=== PATIENT | male | born 1970 ===

== ENCOUNTER 2020-03-31 06:16 | Outpatient (REF) | payer OTHER, SELFPAY ==
[2020-03-31 08:46] LABS: Alanine Aminotransferase 36 U/L (0-40); Albumin Level 4.5 g/dL (3.5-5.0); Alkaline Phosphatase 107 U/L (39-117); Anion Gap 14 (12-20); Aspartate Amino Transferase 31 U/L (5-37); Bilirubin Total 0.6 mg/dL (0.0-1.0); Blood Urea Nitrogen 14 mg/dL (9-16); Calcium 9.4 mg/dL (8.4-10.2); Carbon Dioxide 29 mmol/L (22-29); Chloride 104 mmol/L (96-108); Cholesterol 173 mg/dL; Estimated Glomerular Filt Rate > 60; Glucose Fasting 125 mg/dL (60-99); HDL Cholesterol 26 mg/dL; LDL Cholesterol Calculated 112 mg/dl; Potassium 4.6 mmol/l (3.3-5.1); Sodium 142 mmol/L (135-145); Total Protein 7.8 g/dL (6.5-8.0); Triglycerides 177 mg/dL
== END 2020-03-31 06:17 | disposition home or self-care (01) ==
LOC: HO.LAB 06:16
PROVIDERS: PCP Internal Medicine; Visit Provider Internal Medicine
DX: E11.9 Type 2 diabetes mellitus without complications (principal); Z20.828 Contact with and (suspected) exposure to other viral communicable diseases
CPT/HCPCS: 80053; 80061; U0003

== ENCOUNTER 2020-06-11 18:33 | Inpatient (IN) | payer OTHER, SELFPAY ==
--- NOTE | ~2020-06-11 | CT_ITS ---
EXAMINATION: CT ABDOMEN AND PELVIS WITHOUT CONTRAST CLINICAL INFORMATION: Nausea, abdominal pain, change in bowel habits. COMPARISON: Abdominal ultrasound dated 12/16/2018. TECHNIQUE: Multidetector volumetric imaging was performed from the superior aspect of the liver through the pubic symphysis. Sagittal and coronal reformatted images were obtained on the technologist's workstation. This CT examination was performed using dose optimization techniques as appropriate, variously including the following: *Automated exposure control *Adjustment of mA and/or kV according to patient size (this includes techniques or standardized protocols for targeted exams where dose is matched to indication/reason for exam; i.e. extremities or head) *Use of iterative reconstruction technique DLP: 1103 mGy-cm FINDINGS: LUNG BASES: Mild bibasilar atelectasis. LIVER, GALLBLADDER, AND BILIARY TREE: Hepatomegaly and hepatic steatosis is redemonstrated. Normal hepatic contour. No focal hepatic parenchymal lesion or biliary ductal dilatation. Status post cholecystectomy. PANCREAS: The pancreas is partly fatty replaced with diffuse prominence and prominent adjacent fat stranding throughout the central mesentery, consistent with acute appendicitis. Trace fluid extending inferiorly. No organized fluid collection/abscess formation. No evidence of pseudocyst formation. No pancreatic ductal dilatation. SPLEEN: Unremarkable. ADRENAL GLANDS: Unremarkable. KIDNEYS AND URETERS: The kidneys are normal in size, shape, and attenuation. No hydronephrosis, hydroureter, or calculi seen. Nonspecific bilateral perinephric stranding. BLADDER: Unremarkable. GASTROINTESTINAL TRACT: No bowel wall thickening or associated inflammatory change. No small or large bowel obstruction. Unremarkable appendix. PERITONEAL CAVITY: No intra-abdominal free air. No intra-abdominal mass or organized fluid collection/abscess. ABDOMINAL WALL: No significant hernia is appreciated. LYMPH NODES: No significant lymphadenopathy. VASCULAR: Unremarkable. PELVIC VISCERA: The prostate and seminal vesicles are unremarkable. OSSEOUS STRUCTURES: Lytic focus at the right posterior elements of T10, which may represent a bone cyst. CT/CT abdomen pelvis wo con IMPRESSION: 1. Prominent acute pancreatitis with significant adjacent mesenteric stranding and trace central mesenteric free fluid. No abscess or pseudocyst formation. 2. Hepatomegaly and steatosis are redemonstrated. No hepatic parenchymal lesion or biliary ductal dilatation.
[2020-06-11 18:35] VITALS: BP 118/92; PULSE 106; RESP 18; TEMP 36.7; O2SAT 97; BMI 46.1
--- NOTE | 2020-06-11 19:24 | ECG_ITS ---
Test Reason : ABD PAIN Blood Pressure : / mmHG Vent. Rate : 101 BPM Atrial Rate : 101 BPM P-R Int : 160 ms QRS Dur : 090 ms QT Int : 348 ms P-R-T Axes : 057 -02 043 degrees QTc Int : 451 ms Sinus tachycardia Otherwise normal ECG When compared with ECG of 05-SEP-2018 09:20, No significant change was found Referred By: Ermelinda Rawls Electronically Signed By:Patrice Barrera
[2020-06-11] MEDS: 0.9 % Sodium Chloride 1,000 ML 999 ML IVCONT ×4 (19:47→22:58)
--- NOTE | 2020-06-11 20:05 | ED.ABDPAIN ---
HPI - Abdominal Pain General Chief Complaint: Abdominal Pain Stated Complaint: abd pain Time Seen by Provider: 06/11/20 19:21 Source: patient Mode of arrival: ambulatory Limitations: no limitations History of Present Illness HPI narrative: 49-year-old male with past medical history of diabetes, gout, asthma, obstructive sleep apnea, and morbid obesity presents with several days of abdominal pain and bowel habit changes since Friday. He reports diffuse abdominal pain, left upper quadrant and left lower quadrant pain. Reports a pellet like small bowel movement earlier today but has not had a bowel movement since Friday. He has not had an episode of constipation like this in the past. He does feel nauseous and weak. He does not report any sick contacts, chest pain or pressure, palpitations, shortness of breath, abdominal distention, dysuria, hematuria, or edema. MD elicited complaint: abdominal pain Onset (ago): day(s) (6) Pain Consistency: constant Location: LUQ and LLQ Severity: moderate Quality: aching and dull Radiation: none Migration to: no migration Exacerbating factors: movement and rest Relieving factors: nothing Associated symptoms: nausea and constipation Related Data Home Medications Medication Instructions Recorded Confirmed dapagliflozin [Farxiga] 1 tab PO QAM 06/11/20 06/11/20 fluticasone propion-salmeterol 1 puff PO BID 06/11/20 06/11/20 [Wixela Inhub] sennosides [senna] 2 tab PO BEDTIME PRN 06/11/20 06/11/20 Previous Rx's Medication Instructions Recorded allopurinol 300 mg tablet 300 mg PO DAILY #30 tab 03/28/20 naproxen 500 mg tablet 500 mg PO BID #90 tab 06/05/20 Allergies Allergy/AdvReac Type Severity Reaction Status Date / Time No Known Allergies Allergy Unknown UNKNOWN Verified 03/30/20 17:39 [NO KNOWN ALLERGIES] Review of Systems Review of Systems Constitutional: Positive fatigue, positive weakness, No Weight loss, No Fever, No Chills, No Night Sweats, No Malaise ENT/Mouth: No Hearing loss, No Ear Pain, No Nasal Congestion, No Sinus Pain, No Hoarseness, No sore throat, No Rhinorrhea, No Swallowing Difficulty Eyes: No Eye Pain, No Swelling, No Redness, No Foreign Body, No Discharge, No Vision Changes Cardiovascular: No Chest Pain, No SOB, No Dyspnea on Exertion, No Orthopnea, No Edema, No Palpitations Respiratory: No Cough, No Sputum, No Wheezing, No Smoke Exposure, No Dyspnea Gastrointestinal: Positive Nausea, positive abdominal Pain, positive constipation, no Vomiting, positive Diarrhea, No Hematochezia, No Melena Genitourinary: no irregular bleeding, No Dysuria, No Urinary Frequency, No Hematuria, No Urinary Incontinence, No Urgency, No Flank Pain, No Urinary Flow Changes, No Hesitancy Musculoskeletal: No joint pain, No Myalgias, No Joint Swelling Skin: No Skin Lesions, No rash Neuro: No Weakness, No Numbness, No Paresthesias, No Loss of Consciousness, No Dizziness, No Headache Psych: No Anxiety/Panic, No Depression, No SI/HI/AH/VH, No Social Issues Heme/Lymph: No Bruising, No Bleeding,No Lymphadenopathy Endocrine: No Polyuria, No Polydipsia, No Temperature Intolerance Yes all other systems are reviewed and are negative Physical Exam Vital Signs: Vital Signs: Last Vital Signs Temp 97.8 F 06/11/20 23:25 Pulse 104 H 06/11/20 23:25 Resp 18 06/11/20 23:25 BP 149/76 H 06/11/20 23:25 Pulse Ox 96 06/11/20 23:25 Body Mass Index 46.1 Appearance: Alert. Oriented X3. No acute distress. Eyes: Pupils equal, round and reactive to light. ENT: Pharynx normal. Neck: Normal inspection. Neck supple. CVS: Tachycardic heart rate and rhythm. Pulses normal. Respiratory: No respiratory distress. Breath sounds normal. Abdomen: Soft and obese, tender to palpation left upper left lower quadrants Skin: Skin warm and dry. Normal skin color. Normal skin turgor. Extremities: No lower extremity edema. Neuro: No motor deficit. No sensory deficit. Cranial nerves 2-12 intact, gait well balanced well coordinated Course Course Course Narrative: 49-year-old male presents with abdominal pain, change in bowel habits and nausea. Plan of care to rule out ACS, acute abdomen, and COVID. At 8:40 p.m. White count 16, heart rate elevated at 106, order for Zosyn, lactic and cultures. Patient is morbidly obese, fluid resuscitation will be completed for ideal body weight of 220 lb, as he is [address] scan positive for acute pancreatitis with stranding. Add on for triglycerides. Discussion with hospitalist at 9:30 p.m., plan of care is to admit for acute pancreatitis. Family updated. Patient verbalized understanding of and agrees to plan of care for admission. MDM - Abdominal Pain Differential Diagnosis Differential diagnosis: Likely abdominal pain, acute appendicitis, bowel perforation, calculus of kidney, constipation, diverticulitis, gastroenteritis, pancreatitis and small bowel obstruction Medical Records Attestation: I reviewed the patient's medical records. Lab Data Attestation: I reviewed the patient's lab results. Result diagrams: 06/11/20 20:10 06/11/20 20:10 Labs: Lab Results 06/11/20 06/11/20 06/11/20 Range/Units 19:50 20:10 20:10 WBC 16.5 H (4.8-10.8) X10*3/uL RBC 5.49 (4.60-5.80) X10*6/uL Hgb 14.5 (14.0-18.0) g/dl Hct 46.7 (42-52) % MCV 85.1 (80-98) fL MCH 26.4 L (27.0-33.0) pg MCHC 31.0 (31.0-36.0) g/dl RDW 15.0 (11.0-16.0) % Plt Count 275 (160-400) X10*3/uL MPV 11.5 (9.4-12.4) fL Immature Gran % (Auto) 1.0 H (0.0-0.4) % Neut % (Auto) 83.8 H (45-73) % Lymph % (Auto) 6.7 L (20-40) % [place] % (Auto) 7.8 (2-11) % Eos % (Auto) 0.4 (0-4) % Baso % (Auto) 0.3 (0-2) % Lymph # (Auto) 1.1 L (1.2-4.9) X10*3/uL [place] # (Auto) 1.3 H (0.1-1.2) X10*3/uL Eos # (Auto) 0.1 (0.0-0.4) X10*3/uL Baso # (Auto) 0.1 (0.0-0.2) X10*3/uL Abs Immat Gran (auto) 0.16 H (0.00-0.03) X10*3/uL Absolute Neuts (auto) 13.8 H (2.0-8.3) X10*3/uL Absolute Nucleated RBC 0.000 (0.0-0.012) X10*3/uL Nucleated RBC % (auto) 0.0 (0.0-0.2) /100WBC PT 15.3 H (10.8-13.0) SEC INR 1.3 H (0.9-1.1) APTT 64.8 H* (24.1-38.0) SEC Sodium (135-145) mmol/L Potassium (3.3-5.1) mmol/L Chloride (96-108) mmol/L Carbon Dioxide (22-29) mmol/L Anion Gap (12-20) BUN (9-16) mg/dL Creatinine (0.5-1.4) mg/dL Estim Creat Clear Calc Estimated GFR Random Glucose (60-115) mg/dL Lactic Acid (0.5-2.0) mmol/L Calcium (8.4-10.2) mg/dL Total Bilirubin (0.0-1.0) mg/dL Direct Bilirubin (0.0-0.5) mg/dL AST (5-37) U/L ALT (0-40) U/L Alkaline Phosphatase (39-117) U/L Troponin I High Sens (<3.5-35.0) ng/L Total Protein (6.5-8.0) g/dL Albumin (3.5-5.0) g/dL Triglycerides mg/dL Lipase (8-78) U/L COVID-19 (MIKAELA) Negative (Negative) COVID-19 Clin Com See Note 06/11/20 06/11/20 06/11/20 Range/Units 20:10 20:10 21:05 WBC (4.8-10.8) X10*3/uL RBC (4.60-5.80) X10*6/uL Hgb (14.0-18.0) g/dl Hct (42-52) % MCV (80-98) fL MCH (27.0-33.0) pg MCHC (31.0-36.0) g/dl RDW (11.0-16.0) % Plt Count (160-400) X10*3/uL MPV (9.4-12.4) fL Immature Gran % (Auto) (0.0-0.4) % Neut % (Auto) (45-73) % Lymph % (Auto) (20-40) % [place] % (Auto) (2-11) % Eos % (Auto) (0-4) % Baso % (Auto) (0-2) % Lymph # (Auto) (1.2-4.9) X10*3/uL [place] # (Auto) (0.1-1.2) X10*3/uL Eos # (Auto) (0.0-0.4) X10*3/uL Baso # (Auto) (0.0-0.2) X10*3/uL Abs Immat Gran (auto) (0.00-0.03) X10*3/uL Absolute Neuts (auto) (2.0-8.3) X10*3/uL Absolute Nucleated RBC (0.0-0.012) X10*3/uL Nucleated RBC % (auto) (0.0-0.2) /100WBC PT (10.8-13.0) SEC INR (0.9-1.1) APTT (24.1-38.0) SEC Sodium 136 (135-145) mmol/L Potassium 4.0 (3.3-5.1) mmol/L Chloride 98 (96-108) mmol/L Carbon Dioxide 23 (22-29) mmol/L Anion Gap 19 (12-20) BUN 12 (9-16) mg/dL Creatinine 0.81 (0.5-1.4) mg/dL Estim Creat Clear Calc 177.7 Estimated GFR > 60 Random Glucose 107 (60-115) mg/dL Lactic Acid 0.7 (0.5-2.0) mmol/L Calcium 9.5 (8.4-10.2) mg/dL Total Bilirubin 1.2 H (0.0-1.0) mg/dL Direct Bilirubin 0.4 (0.0-0.5) mg/dL AST 23 (5-37) U/L ALT 27 (0-40) U/L Alkaline Phosphatase 109 (39-117) U/L Troponin I High Sens < 3.5 (<3.5-35.0) ng/L Total Protein 8.5 H (6.5-8.0) g/dL Albumin 4.5 (3.5-5.0) g/dL Triglycerides 114 mg/dL Lipase 191 H (8-78) U/L COVID-19 (MIKAELA) (Negative) COVID-19 Clin Com Imaging Data CT scan - abdomen: Radiologist's impression: EXAMINATION: CT ABDOMEN AND PELVIS WITHOUT CONTRAST CLINICAL INFORMATION: Nausea, abdominal pain, change in bowel habits. COMPARISON: Abdominal ultrasound dated 12/16/2018. TECHNIQUE: Multidetector volumetric imaging was performed from the superior aspect of the liver through the pubic symphysis. Sagittal and coronal reformatted images were obtained on the technologist's workstation. This CT examination was performed using dose optimization techniques as appropriate, variously including the following: *Automated exposure control *Adjustment of mA and/or kV according to patient size (this includes techniques or standardized protocols for targeted exams where dose is matched to indication/reason for exam; i.e. extremities or head) *Use of iterative reconstruction technique DLP: 1103 mGy-cm FINDINGS: LUNG BASES: Mild bibasilar atelectasis. LIVER, GALLBLADDER, AND BILIARY TREE: Hepatomegaly and hepatic steatosis is redemonstrated. Normal hepatic contour. No focal hepatic parenchymal lesion or biliary ductal dilatation. Status post cholecystectomy. PANCREAS: The pancreas is partly fatty replaced with diffuse prominence and prominent adjacent fat stranding throughout the central mesentery, consistent with acute appendicitis. Trace fluid extending inferiorly. No organized fluid collection/abscess formation. No evidence of pseudocyst formation. No pancreatic ductal dilatation. SPLEEN: Unremarkable. ADRENAL GLANDS: Unremarkable. KIDNEYS AND URETERS: The kidneys are normal in size, shape, and attenuation. No hydronephrosis, hydroureter, or calculi seen. Nonspecific bilateral perinephric stranding. BLADDER: Unremarkable. GASTROINTESTINAL TRACT: No bowel wall thickening or associated inflammatory change. No small or large bowel obstruction. Unremarkable appendix. PERITONEAL CAVITY: No intra-abdominal free air. No intra-abdominal mass or organized fluid collection/abscess. ABDOMINAL WALL: No significant hernia is appreciated. LYMPH NODES: No significant lymphadenopathy. VASCULAR: Unremarkable. PELVIC VISCERA: The prostate and seminal vesicles are unremarkable. OSSEOUS STRUCTURES: Lytic focus at the right posterior elements of T10, which may represent a bone cyst. CT/CT abdomen pelvis wo con IMPRESSION: 1. Prominent acute pancreatitis with significant adjacent mesenteric stranding and trace central mesenteric free fluid. No abscess or pseudocyst formation. 2. Hepatomegaly and steatosis are redemonstrated. No hepatic parenchymal lesion or biliary ductal dilatation. ECG Data Attestation: I personally reviewed and interpreted this ECG as follows: ECG interpretation date: 06/11/20 ECG interpretation time: 19:53 Interpretation: Vent. rate 101 BPM RI interval 160 ms QRS duration 90 ms QT/QTc 348/451 ms P-R-T axes 57 -2 43 Sinus tachycardia Otherwise normal ECG When compared with ECG of 05-SEP-2018 09:20, No significant change was found Critical Care Time Critical Care Time Critical Care Time: Yes Total Critical Care Time: 45 Attestation: I have personally provided critical care time exclusive of time spent on separately billable procedures. Time includes review of laboratory data, radiology results, discussion with consultants, and monitoring for potential decompensation. Interventions were performed as documented. Discharge Plan Discharge Clinical Impression: Acute pancreatitis Qualifiers: Pancreatitis type: unspecified pancreatitis type Acute pancreatitis complication: unspecified Qualified Code(s): K85.90 - Acute pancreatitis without necrosis or infection, unspecified Patient Disposition: Admitted As Inpatient [facility] Past Medical History Attestation statement: The following information was validated with the patient. Source: old records reviewed Medical History Diabetes mellitus Gout Moderate asthma Morbid obesity Surgical History History of cholecystectomy Family History Family History Father CVD (cardiovascular disease) Hypertension Diabetes Mother Diabetes Chronic mental illness Sister Down syndrome Sister Hypertension Hypothyroid Social History Social History Alcohol intake: never Smoking Status: Former smoker Smoked in Last 30 Days: No Use of substances other than those prescribed or required for medical reasons: No Advance Directives: No Advance Directives Information Provided: Yes
[2020-06-11 20:13] LABS: COVID-19 Test Negative (Negative)
[2020-06-11 20:26] LABS: Basophils Absolute Auto 0.1 X10*3/uL (0.0-0.2); Basophils Percent Auto 0.3 % (0-2); Eosinophils Absolute Auto 0.1 X10*3/uL (0.0-0.4); Eosinophils Percent Auto 0.4 % (0-4); Hematocrit 46.7 % (42-52); Hemoglobin 14.5 g/dl (14.0-18.0); Imm Gran Abs Auto 0.16 X10*3/uL (0.00-0.03); Lymphocytes Absolute Auto 1.1 X10*3/uL (1.2-4.9); Lymphocytes Percent Auto 6.7 % (20-40); MANUAL DIFF FLAG NO; Mean Corpuscular Hemoglobin 26.4 pg (27.0-33.0); Mean Corpuscular Volume 85.1 fL (80-98); Mean Platelet Volume 11.5 fL (9.4-12.4); Monocytes Absolute Auto 1.3 X10*3/uL (0.1-1.2); Monocytes Percent Auto 7.8 % (2-11); Neutrophils Absolute Auto 13.8 X10*3/uL (2.0-8.3); Neutrophils Percent Auto 83.8 % (45-73); Platelet Count 275 X10*3/uL (160-400); Red Blood Count 5.49 X10*6/uL (4.60-5.80); White Blood Count 16.5 X10*3/uL (4.8-10.8)
[2020-06-11 20:32] LABS: INTERNATIONAL NORM RATIO 1.3 (0.9-1.1); Prothrombin Time 15.3 SEC (10.8-13.0)
[2020-06-11 20:41] LABS: Partial Thromboplastin Time 64.8 SEC (24.1-38.0)
[2020-06-11] MEDS: Ketorolac Tromethamine 15 MG/ML VIAL IVPUSH (20:51)
[2020-06-11] MEDS: Morphine Sulfate 4 MG/ML CARTRIDGE IVPUSH (20:51)
[2020-06-11 20:53] LABS: Troponin-I High Sensitivity < 3.5 ng/L (<3.5-35.0)
[2020-06-11 21:06] LABS: Alanine Aminotransferase 27 U/L (0-40); Albumin Level 4.5 g/dL (3.5-5.0); Alkaline Phosphatase 109 U/L (39-117); Anion Gap 19 (12-20); Aspartate Amino Transferase 23 U/L (5-37); Bilirubin Direct 0.4 mg/dL (0.0-0.5); Bilirubin Total 1.2 mg/dL (0.0-1.0); Blood Urea Nitrogen 12 mg/dL (9-16); Calcium 9.5 mg/dL (8.4-10.2); Carbon Dioxide 23 mmol/L (22-29); Chloride 98 mmol/L (96-108); Creatinine Clr Calc Pharmacy 177.7; Estimated Glomerular Filt Rate > 60; Glucose Random 107 mg/dL (60-115); Lipase 191 U/L (8-78); Sodium 136 mmol/L (135-145); Total Protein 8.5 g/dL (6.5-8.0)
[2020-06-11] MEDS: Piperacillin Sodium/Tazobactam 3.375 GM in 0.9 % Sodium Chloride 50 ML IV (21:27)
[2020-06-11 21:29] VITALS: BP 128/72; PULSE 100; RESP 19; TEMP 36.7; O2SAT 95
--- NOTE | 2020-06-11 21:30 | PC.NURSE ---
patient a&ox3, vss, pt was medicated for pain and currently states he is now pain free, additional labs drawn, ivf and antibiotics running per order, obtained med list from but she was unsure when meds were last taken, provider spoke with as well, will continue to monitor.
[2020-06-11 21:33] LABS: Lactic Acid 0.7 mmol/L (0.5-2.0)
[2020-06-11 22:10] LABS: Triglycerides 114 mg/dL
[2020-06-11] MEDS: HYDROmorphone HCl 1 MG/ML SYRINGE IVPUSH (23:09)
[2020-06-11 23:25] VITALS: BP 149/76; PULSE 104; RESP 18; TEMP 36.6; O2SAT 96
--- NOTE | 2020-06-11 23:45 | PM.IMHP ---
History of Present Illness Date of Service: 06/11/20 Chief Complaint: Abdominal pain This is a 49-year-old male with past medical history of diabetes, gout, asthma, and ANGEL who presents to the hospital with complaints of abdominal pain that started 3 days ago. Pain is epigastric, as well as left upper quadrant, 10/10, worse when he moves to the side, and radiates to the back. Pain is also associated with nausea with no vomiting. He has no fever or chills, diarrhea constipation. No chest pain, no shortness of breath. No urinary symptoms and no lower extremity edema. No similar episode in the past. Hemodynamically stable with no significant abnormal vitals Labs are significant for WBC count of 16.5, hemoglobin of 14.5, hematocrit 46.7, PT of 15.3, INR of 1.3, PTT of 64.8, lipase of 191, A CT abdomen shows acute pancreatitis Patient denies drinking any alcohol, and he has a history of cholecystectomy about a year ago. Patient will be admitted for management of acute pancreatitis Review of Systems Review of Systems: Yes all other systems are reviewed and are negative [facility] Medical History Diabetes mellitus Gout Moderate asthma Morbid obesity Family History Father CVD (cardiovascular disease) Hypertension Diabetes Mother Diabetes Chronic mental illness Sister Down syndrome Sister Hypertension Hypothyroid Surgical History History of cholecystectomy Social History Alcohol intake: never Smoking Status: Former smoker Smoked in Last 30 Days: No Use of substances other than those prescribed or required for medical reasons: No Advance Directives: No Advance Directives Information Provided: Yes Meds Allergies Allergy/AdvReac Type Severity Reaction Status Date / Time No Known Allergies Allergy Unknown UNKNOWN Verified 03/30/20 17:39 [NO KNOWN ALLERGIES] Active Medications: Current Medications Generic Name Dose Route Start Last Admin Trade Name Freq PRN Reason Stop Dose Admin Acetaminophen 650 mg 06/11/20 23:25 Acetaminophen 325 Mg Tablet PO Q6H PRN Pain, Mild (Pain Scale 1-3) Allopurinol 300 mg 06/12/20 09:00 Allopurinol 300 Mg Tablet PO DAILY [facility] Docusate Sodium 100 mg 06/11/20 23:25 Docusate Sodium 100 Mg Capsule PO DAILY PRN Constipation Enoxaparin Sodium 40 mg 06/11/20 23:25 Enoxaparin Sodium 40 Mg/0.4 Ml Syringe SUBCUT Q24H [facility] Sodium Chloride 1,000 mls @ 250 mls/hr 06/11/20 23:25 Ns IVCONT .Q4H [facility] Insulin Human Lispro 0 unit 06/12/20 07:30 Insulin Lispro 100 Unit/Ml 3 Ml Vial SUBCUT QIDACHS [facility] Naproxen 500 mg 06/12/20 09:00 Naproxen 500 Mg Tablet PO BID [facility] Ondansetron HCl 4 mg 06/11/20 23:25 Ondansetron Hcl 4 Mg/2 Ml Vial IVPUSH Q8H PRN Nausea and Vomiting Pharmacy Consult 1 each 06/11/20 23:22 Consult Rx Perform Med Rec MISCELLANE ONCE PRN Consult order Senna 17.2 mg 06/11/20 23:25 Sennosides 8.6 Mg Tablet PO BEDTIME PRN Constipation Sodium Chloride 3 ml 06/12/20 00:00 0.9 % Sodium Chloride Flush 3 Ml Syringe IVFLUSH QSHIFT [facility] Home Medications Medication Instructions Recorded Confirmed Last Taken Type dapagliflozin [Farxiga] 1 tab PO QAM 06/11/20 06/11/20 Unknown History fluticasone propion-salmeterol 1 puff PO BID 06/11/20 06/11/20 Unknown History [Wixela Inhub] sennosides [senna] 2 tab PO BEDTIME PRN 06/11/20 06/11/20 06/10/20 History Physical Exam Vital Signs and Narrative: Vital Signs: Last Vital Signs Temp 98.0 F 06/11/20 21:29 Pulse 100 06/11/20 21:29 Resp 19 06/11/20 21:29 BP 128/72 06/11/20 21:29 Pulse Ox 95 06/11/20 21:29 Body Mass Index 46.1 Const: General: cooperative and no acute distress Orientation/consciousness: patient oriented x3 Eyes: General: appearance normal, both eyes and all related structures Resp: Effort & Inspection: normal respiratory effort and able to speak in complete sentences Cardio: Rate: regular rate Rhythm: regular rhythm GI: Other: Epigastric tenderness, as well as right upper quadrant tenderness no rebound, no guarding Palpation (GI): Soft to palpation Auscultation: normal bowel sounds Skin: General skin exam: no rashes or lesions noted Neuro: General: patient oriented x3 Cognition (Neuro): normal cognition Extrem: General: Yes normal to inspection and Yes no pedal edema Results Labs CBC and Chem 7: 06/11/20 20:10 06/11/20 20:10 Labs: Laboratory Results - last 24 hr 06/11/20 06/11/20 06/11/20 19:50 20:10 20:10 MCV 85.1 MCH 26.4 L MCHC 31.0 RDW 15.0 Plt Count 275 MPV 11.5 Immature Gran % (Auto) 1.0 H Neut % (Auto) 83.8 H Lymph % (Auto) 6.7 L [place] % (Auto) 7.8 Eos % (Auto) 0.4 Baso % (Auto) 0.3 Lymph # (Auto) 1.1 L [place] # (Auto) 1.3 H Eos # (Auto) 0.1 Baso # (Auto) 0.1 Abs Immat Gran (auto) 0.16 H Absolute Neuts (auto) 13.8 H Absolute Nucleated RBC 0.000 Nucleated RBC % (auto) 0.0 PT 15.3 H INR 1.3 H APTT 64.8 H* Anion Gap Estim Creat Clear Calc Estimated GFR Random Glucose Lactic Acid Calcium Total Bilirubin Direct Bilirubin AST ALT Alkaline Phosphatase Troponin I High Sens Total Protein Albumin Triglycerides Lipase COVID-19 (MIKAELA) Negative COVID-19 Clin Com See Note 06/11/20 06/11/20 06/11/20 20:10 20:10 21:05 MCV MCH MCHC RDW Plt Count MPV Immature Gran % (Auto) Neut % (Auto) Lymph % (Auto) [place] % (Auto) Eos % (Auto) Baso % (Auto) Lymph # (Auto) [place] # (Auto) Eos # (Auto) Baso # (Auto) Abs Immat Gran (auto) Absolute Neuts (auto) Absolute Nucleated RBC Nucleated RBC % (auto) PT INR APTT Anion Gap 19 Estim Creat Clear Calc 177.7 Estimated GFR > 60 Random Glucose 107 Lactic Acid 0.7 Calcium 9.5 Total Bilirubin 1.2 H Direct Bilirubin 0.4 AST 23 ALT 27 Alkaline Phosphatase 109 Troponin I High Sens < 3.5 Total Protein 8.5 H Albumin 4.5 Triglycerides 114 Lipase 191 H COVID-19 (MIKAELA) COVID-19 Clin Com Imaging Radiologist's Impressions: Impressions Abdomen/Pelvis CT 06/11/20 19:24 IMPRESSION: 1. Prominent acute pancreatitis with significant adjacent mesenteric stranding and trace central mesenteric free fluid. No abscess or pseudocyst formation. 2. Hepatomegaly and steatosis are redemonstrated. No hepatic parenchymal lesion or biliary ductal dilatation. Assessment and Plan (1) Acute pancreatitis: Qualifiers: Acute pancreatitis complication: unspecified Pancreatitis type: unspecified pancreatitis type Qualified Code(s): K85.90 - Acute pancreatitis without necrosis or infection, unspecified Status: Acute (2) Moderate asthma: Status: Acute (3) Diabetes mellitus: Qualifiers: Diabetes mellitus type: type 2 Diabetes mellitus retirement insulin use: without retirement use Diabetes mellitus complication status: with hyperglycemia Qualified Code(s): E11.65 - Type 2 diabetes mellitus with hyperglycemia Status: Acute (4) Gout: Qualifiers: Gout site: unspecified site Gout etiology: unspecified cause Chronicity: chronic Presence of tophus: without tophus Qualified Code(s): M1A.9XX0 - Chronic gout, unspecified, without tophus (tophi) Status: Acute This is a 49-year-old male who presents to hospital complaints of abdominal pain found to have acute pancreatitis # acute pancreatitis - triglycerides within normal limit, history of cholecystectomy, does not drink - cause possibly secondary to his diabetic medication although less likely, most likely idiopathic - patient has epigastric abdominal pain as well as CT findings of acute pancreatitis as well as elevated lipase Plan: - will start him on aggressive IV fluids - pain management - NPO # diabetes mellitus - hold oral med SGLT- inhibitor which may be contributing to his acute pancreatitis ( found 1 case report) - will start him on low-dose sliding scale insulin - diabetic diet # gout - no flare - continue allopurinol # asthma - no exacerbation - continue inhaler DVT prophylaxis:lovenox
[2020-06-12] MEDS: 0.9 % Sodium Chloride 1,000 ML 250 ML IVCONT ×3 (01:02→09:34)
[2020-06-12] MEDS: Enoxaparin Sodium 40 MG/0.4 ML SYRINGE SUBCUT ×2 (01:02→23:36)
[2020-06-12 01:08] LABS: Glucose, Whole Blood 105 mg/dL (60-115)
[2020-06-12] MEDS: Morphine Sulfate 4 MG/ML CARTRIDGE IVPUSH ×5 (04:12→21:06)
[2020-06-12 08:05] VITALS: BP 158/79; PULSE 108; RESP 18; TEMP 36.9; O2SAT 94
--- NOTE | 2020-06-12 08:06 | PC.NURSE ---
pt reports increased pain and mild nausea color is pwd no active vomiting noted pain rated at 10/10
[2020-06-12 08:12] VITALS: RESP 22
[2020-06-12 08:55] LABS: MANUAL DIFF FLAG NO
[2020-06-12 09:01] LABS: Basophils Percent Auto 0.2 % (0-2); Eosinophils Percent Auto 0.2 % (0-4); Hematocrit 41.1 % (42-52); Hemoglobin 12.9 g/dl (14.0-18.0); Imm Gran Abs Auto 0.18 X10*3/uL (0.00-0.03); Imm Gran Pct Auto 1.2 % (0.0-0.4); Lymphocytes Absolute Auto 0.8 X10*3/uL (1.2-4.9); Lymphocytes Percent Auto 5.3 % (20-40); Mean Corpuscular HGB Conc 31.4 g/dl (31.0-36.0); Mean Corpuscular Hemoglobin 26.8 pg (27.0-33.0); Mean Corpuscular Volume 85.3 fL (80-98); Mean Platelet Volume 12.2 fL (9.4-12.4); Monocytes Absolute Auto 1.2 X10*3/uL (0.1-1.2); Monocytes Percent Auto 8.1 % (2-11); Neutrophils Absolute Auto 12.9 X10*3/uL (2.0-8.3); Platelet Count 256 X10*3/uL (160-400); Red Blood Count 4.82 X10*6/uL (4.60-5.80); Red Cell Distribution Width 14.9 % (11.0-16.0); White Blood Count 15.2 X10*3/uL (4.8-10.8)
[2020-06-12 09:27] LABS: Anion Gap 14 (12-20); Blood Urea Nitrogen 8 mg/dL (9-16); Carbon Dioxide 21 mmol/L (22-29); Chloride 106 mmol/L (96-108); Creatinine Clr Calc Pharmacy 199.9; Estimated Glomerular Filt Rate > 60; Glucose Random 99 mg/dL (60-115); Sodium 137 mmol/L (135-145)
[2020-06-12] MEDS: 0.9 % Sodium Chloride Flush 3 ML SYRINGE IVFLUSH (09:34)
[2020-06-12] MEDS: NaPROXEN 500 MG TABLET PO ×2 (09:35→21:06)
[2020-06-12] MEDS: allopurinoL 300 MG TABLET PO (09:36)
[2020-06-12 09:37] LABS: Calcium 8.4 mg/dL (8.4-10.2)
[2020-06-12] MEDS: ondansetron HCL 4 MG/2 ML VIAL IVPUSH ×2 (09:39→22:26)
--- NOTE | 2020-06-12 09:40 | PC.NURSE ---
Pt continues to have some pain 6/10 after morphine this morning. He was given scheduled naproxen at this time. He also reports nausea. He was given PRN zofran.
--- NOTE | 2020-06-12 11:42 | P.PNIM_ITS ---
Subjective Subjective Date of Service: 06/12/20 Interval History: the patient was seen and evaluated this morning Laying in bed, feels comfortable but has Abd pain Denies any fever, chills or shortness of breath No reported other overnight events. Systemic review: No fever, chills or weakness No chest pain, palpitation No shortness of breath or coughing reports mild abdominal pain with no nausea or vomiting No urinary symptoms No any rash or wounds Physical Exam Vital Signs: Vital Signs: Last Vital Signs Temp 98.4 F 06/12/20 08:05 Pulse 108 H 06/12/20 08:05 Resp 22 H 06/12/20 08:12 BP 158/79 H 06/12/20 08:05 Pulse Ox 94 06/12/20 08:05 Body Mass Index 46.1 Const: Other: Constitutional : Alert, oriented, not in distress Neck : Normal inspection, Supple Cardiovascular : RRR, S1 S2, no lower extremity edema Respiratory : Good bilateral air entry, no crackles, wheezes or rhonchi Gastrointestinal: soft, lax, decrease bowel sounds, mild epigastric tenderness Skin : Warm/Dry, No rash Neurological : Alert & oriented x3, No focal deficit Objective Data Current Medications Generic Name Dose Route Start Last Admin Trade Name Freq PRN Reason Stop Dose Admin Acetaminophen 650 mg 06/11/20 23:25 Acetaminophen 325 Mg Tablet PO Q6H PRN Pain, Mild (Pain Scale 1-3) Allopurinol 300 mg 06/12/20 09:00 06/12/20 09:36 Allopurinol 300 Mg Tablet PO 300 mg DAILY VENITA Administration Docusate Sodium 100 mg 06/11/20 23:25 Docusate Sodium 100 Mg Capsule PO DAILY PRN Constipation Enoxaparin Sodium 40 mg 06/11/20 23:25 06/12/20 01:02 Enoxaparin Sodium 40 Mg/0.4 Ml Syringe SUBCUT 40 mg Q24H VENITA Administration Sodium Chloride 1,000 mls @ 200 mls/hr 06/11/20 23:25 06/12/20 09:34 Ns IVCONT 250 mls/hr .Q5H VENITA Administration Insulin Human Lispro 0 unit 06/12/20 07:30 06/12/20 09:36 Insulin Lispro 100 Unit/Ml 3 Ml Vial SUBCUT Not Given QIDACHS [facility] Morphine Sulfate 4 mg 06/11/20 23:51 06/12/20 08:12 Morphine Sulfate 4 Mg/Ml Cartridge IVPUSH 4 mg Q4H PRN Administration Pain, Severe (Pain Scale 7-10) Naproxen 500 mg 06/12/20 09:00 06/12/20 09:35 Naproxen 500 Mg Tablet PO 500 mg BID VENITA Administration Ondansetron HCl 4 mg 06/11/20 23:25 06/12/20 09:39 Ondansetron Hcl 4 Mg/2 Ml Vial IVPUSH 4 mg Q8H PRN Administration Nausea and Vomiting Pharmacy Consult 1 each 06/11/20 23:22 Consult Rx Perform Med Rec MISCELLANE ONCE PRN Consult order Senna 17.2 mg 06/11/20 23:25 Sennosides 8.6 Mg Tablet PO BEDTIME PRN Constipation Sodium Chloride 3 ml 06/12/20 00:00 06/12/20 09:34 0.9 % Sodium Chloride Flush 3 Ml Syringe IVFLUSH 3 ml QSHIFT VENITA Administration Labs CBC & Chem 7: 06/12/20 08:26 06/12/20 08:26 Assessment and Plan (1) Acute pancreatitis: Status: Acute (2) Moderate asthma: Status: Acute (3) Diabetes mellitus: Status: Acute (4) Gout: Status: Acute Assessment and Plan: This is a 49-year-old male who presents to hospital complaints of abdominal pain found to have acute pancreatitis acute pancreatitis triglycerides within normal limit, history of cholecystectomy, does not drink possibly secondary to medication, NSAIDs, idiopathic CT findings of acute pancreatitis as well as elevated lipase aggressive IV fluids pain management with morphine start clear liquids diabetes mellitus hold oral med SGLT- inhibitor low-dose sliding scale insulin diabetic diet Gout no flare continue allopurinol Asthma no exacerbation continue inhaler DVT prophylaxis lovenox
[2020-06-12 12:01] LABS: Glucose, Whole Blood 95 mg/dL (60-115)
--- NOTE | 2020-06-12 12:19 | PC.NURSE ---
Pt medicated for pain and given jello. He was instructed to eat slowly. He is not nauseated at this time.
[2020-06-12 13:20] VITALS: BP 131/75; PULSE 98; RESP 16; TEMP 36.9; O2SAT 93
--- NOTE | 2020-06-12 13:21 | PC.NURSE ---
Tolerating po intake of jello and juice
--- NOTE | 2020-06-12 14:24 | PC.NURSE ---
REPORT GIVEN FOR ADMISSION TO [facility]
[2020-06-12 15:19] VITALS: BP 125/70; PULSE 98; RESP 14; TEMP 37; O2SAT 94
[2020-06-12 16:28] LABS: Glucose, Whole Blood 96 mg/dL (60-115)
[2020-06-12] MEDS: 0.9 % Sodium Chloride 1,000 ML 200 ML IVCONT ×2 (16:59→21:11)
[2020-06-12 18:35] LABS: Appearance Urine CLEAR; Color Urine YELLOW; Glucose Urine UA NEG (NEG); Leukocyte Esterase Urine NEG (NEG); Nitrite Urine NEG (NEG); Specific Gravity - Urine >= 1.030 (1.005-1.025); Urine Blood NEG (NEG); Urine Ketones >=80 MG/DL (NEG); Urine Protein TRACE MG/DL (NEG-TRACE)
[2020-06-12 19:02] VITALS: BP 135/81; PULSE 100; RESP 15; TEMP 36.2; O2SAT 94
[2020-06-12 20:38] LABS: Glucose, Whole Blood 92 mg/dL (60-115)
[2020-06-12 23:18] VITALS: BP 143/80; PULSE 88; RESP 20; TEMP 36.9; O2SAT 96
[2020-06-13] MEDS: 0.9 % Sodium Chloride 1,000 ML 200 ML IVCONT ×2 (02:11→06:48)
[2020-06-13 03:31] VITALS: BP 140/83; PULSE 91; RESP 20; TEMP 36.4; O2SAT 95
[2020-06-13 06:05] LABS: Mean Corpuscular HGB Conc 30.8 g/dl (31.0-36.0); Mean Corpuscular Hemoglobin 26.5 pg (27.0-33.0); Mean Corpuscular Volume 86.1 fL (80-98); Mean Platelet Volume 11.7 fL (9.4-12.4); Platelet Count 236 X10*3/uL (160-400); Red Blood Count 4.53 X10*6/uL (4.60-5.80); Red Cell Distribution Width 14.8 % (11.0-16.0); White Blood Count 12.7 X10*3/uL (4.8-10.8)
[2020-06-13 06:33] LABS: Anion Gap 12 (12-20); Blood Urea Nitrogen 8 mg/dL (9-16); Calcium 8.6 mg/dL (8.4-10.2); Carbon Dioxide 26 mmol/L (22-29); Chloride 104 mmol/L (96-108); Creatinine Clr Calc Pharmacy 194.5; Estimated Glomerular Filt Rate > 60; Glucose Random 97 mg/dL (60-115); Potassium 4.1 mmol/L (3.3-5.1); Sodium 138 mmol/L (135-145)
[2020-06-13 08:00] VITALS: BP 135/82; PULSE 85; RESP 18; TEMP 36.6; O2SAT 94
[2020-06-13 08:13] LABS: Glucose, Whole Blood 98 mg/dL (60-115)
[2020-06-13] MEDS: NaPROXEN 500 MG TABLET PO (08:17)
[2020-06-13] MEDS: allopurinoL 300 MG TABLET PO (08:17)
--- NOTE | 2020-06-13 08:44 | MHC.CM.PN ---
CM met with Patient at bedside. Patient lives in an apartment with his and he is functionally independent. Patient's goal is to return home and CM has initiated and will follow for dc planning. IMM addressed with Patient and the original has been given to him and a copy has been placed on the chart. PCP is Dr. Ninoska Kevin.
[2020-06-13 11:39] VITALS: BP 125/74; PULSE 74; RESP 19; TEMP 36.6; O2SAT 94
[2020-06-13 11:51] VITALS: BMI 46.1
--- NOTE | 2020-06-13 13:48 | HO.PM.IMPN ---
Subjective Subjective Date of Service: 06/13/20 Interval History: the patient was seen and evaluated this morning Laying in bed, feels comfortable under abdominal pain has improved Denies any fever, chills or shortness of breath No reported other overnight events. Systemic review: No fever, chills or weakness No chest pain, palpitation No shortness of breath or coughing reports mild abdominal pain with no nausea or vomiting No urinary symptoms No any rash or wounds Physical Exam Vital Signs: Vital Signs: Last Vital Signs Temp 97.9 F 06/13/20 11:39 Pulse 74 06/13/20 11:39 Resp 19 06/13/20 11:39 BP 125/74 06/13/20 11:39 Pulse Ox 94 06/13/20 11:39 Body Mass Index 46.1 Const: Other: Constitutional : Alert, oriented, not in distress Neck : Normal inspection, Supple Cardiovascular : RRR, S1 S2, no lower extremity edema Respiratory : Good bilateral air entry, no crackles, wheezes or rhonchi Gastrointestinal: soft, lax, decrease bowel sounds, mild epigastric tenderness Skin : Warm/Dry, No rash Neurological : Alert & oriented x3, No focal deficit Objective Data Current Medications Generic Name Dose Route Start Last Admin Trade Name Freq PRN Reason Stop Dose Admin Acetaminophen 650 mg 06/11/20 23:25 Acetaminophen 325 Mg Tablet PO Q6H PRN Pain, Mild (Pain Scale 1-3) Allopurinol 300 mg 06/12/20 09:00 06/13/20 08:17 Allopurinol 300 Mg Tablet PO 300 mg DAILY VNEITA Administration Docusate Sodium 100 mg 06/11/20 23:25 Docusate Sodium 100 Mg Capsule PO DAILY PRN Constipation Enoxaparin Sodium 40 mg 06/11/20 23:25 06/12/20 23:36 Enoxaparin Sodium 40 Mg/0.4 Ml Syringe SUBCUT 40 mg Q24H VENITA Administration Sodium Chloride 1,000 mls @ 125 mls/hr 06/11/20 23:25 06/13/20 11:25 Ns IVCONT Infused .Q8H VENITA Infusion Insulin Human Lispro 0 unit 06/12/20 07:30 06/13/20 13:02 Insulin Lispro 100 Unit/Ml 3 Ml Vial SUBCUT Not Given QIDACHS [facility] Morphine Sulfate 4 mg 06/11/20 23:51 06/12/20 21:06 Morphine Sulfate 4 Mg/Ml Cartridge IVPUSH 4 mg Q4H PRN Administration Pain, Severe (Pain Scale 7-10) Naproxen 500 mg 06/12/20 09:00 06/13/20 08:17 Naproxen 500 Mg Tablet PO 500 mg BID VENITA Administration Ondansetron HCl 4 mg 06/11/20 23:25 06/12/20 22:26 Ondansetron Hcl 4 Mg/2 Ml Vial IVPUSH 4 mg Q8H PRN Administration Nausea and Vomiting Pharmacy Consult 1 each 06/11/20 23:22 Consult Rx Perform Med Rec MISCELLANE ONCE PRN Consult order Senna 17.2 mg 06/11/20 23:25 Sennosides 8.6 Mg Tablet PO BEDTIME PRN Constipation Sodium Chloride 3 ml 06/12/20 00:00 06/13/20 08:18 0.9 % Sodium Chloride Flush 3 Ml Syringe IVFLUSH Not Given QSHIFT [facility] Labs CBC & Chem 7: 06/13/20 05:39 06/13/20 05:39 Microbiology Microbiology Results: Microbiology 06/11/20 21:26 Blood - Venous Blood Culture - Preliminary No growth after 24 hours. 06/11/20 21:05 Blood - Venous Blood Culture - Preliminary No growth after 24 hours. Assessment and Plan (1) Acute pancreatitis: Status: Acute (2) Moderate asthma: Status: Acute (3) Diabetes mellitus: Status: Acute (4) Gout: Status: Acute Assessment and Plan: This is a 49-year-old male who presents to hospital complaints of abdominal pain found to have acute pancreatitis acute pancreatitis triglycerides within normal limit, history of cholecystectomy, does not drink possibly secondary to medication, NSAIDs, idiopathic CT findings of acute pancreatitis as well as elevated lipase Decrease the rate of IV fluids pain management with morphine Advanced diet to regular diabetes mellitus hold oral med SGLT- inhibitor low-dose sliding scale insulin diabetic diet Gout no flare continue allopurinol Asthma no exacerbation continue inhaler DVT prophylaxis lovenox
[2020-06-13 14:21] LABS: Glucose, Whole Blood 88 mg/dL (60-115)
[2020-06-13 16:00] VITALS: BP 125/76; PULSE 90; RESP 18; TEMP 36.7; O2SAT 95
[2020-06-13 16:40] LABS: Glucose, Whole Blood 92 mg/dL (60-115)
[2020-06-13 19:09] VITALS: BP 128/78; PULSE 93; RESP 16; TEMP 36.8; O2SAT 94
[2020-06-13 20:28] LABS: Glucose, Whole Blood 110 mg/dL (60-115)
[2020-06-13 23:22] VITALS: BP 140/66; PULSE 84; RESP 18; TEMP 36.4; O2SAT 97
[2020-06-13] MEDS: Enoxaparin Sodium 40 MG/0.4 ML SYRINGE SUBCUT (23:27)
[2020-06-14 00:40] VITALS: PULSE 82; RESP 12; O2SAT 96
[2020-06-14 03:21] VITALS: BP 123/69; PULSE 79; RESP 18; TEMP 36.3; O2SAT 93
[2020-06-14 07:17] VITALS: BP 135/86; PULSE 91; RESP 19; TEMP 36.1; O2SAT 94
[2020-06-14 08:23] LABS: Glucose, Whole Blood 102 mg/dL (60-115)
--- NOTE | 2020-06-14 09:56 | P.DS_ITS ---
DS: Providers Provider Date of Service: 06/14/20 Date of admission: 06/11/20 23:00 Primary care physician: Ninoska Kevin MD DS: Diagnosis Discharge Diagnosis (1) Acute pancreatitis: Status: Acute (2) Moderate asthma: Status: Acute (3) Diabetes mellitus: Status: Acute (4) Gout: Status: Acute DS: Medications Discharge Medications Home Medications: Home Medications Medication Instructions Recorded Confirmed Farxiga 1 tab PO QAM 06/11/20 06/11/20 fluticasone propion-salmeterol 1 puff PO BID 06/11/20 06/11/20 [Wixela Inhub] sennosides [senna] 2 tab PO BEDTIME PRN 06/11/20 06/11/20 Previous Rx's Medication Instructions Recorded allopurinol 300 mg tablet 300 mg PO DAILY #30 tab 03/28/20 naproxen 500 mg tablet 500 mg PO BID #90 tab 06/05/20 DS: Summary Hospital Course Hospital Course: Admission note HPI This is a 49-year-old male with past medical history of diabetes, gout, asthma, and ANGEL who presents to the hospital with complaints of abdominal pain that started 3 days ago. Pain is epigastric, as well as left upper quadrant, 10/10, worse when he moves to the side, and radiates to the back. Pain is also associated with nausea with no vomiting. He has no fever or chills, diarrhea constipation. No chest pain, no shortness of breath. No urinary symptoms and no lower extremity edema. No similar episode in the past. Hemodynamically stable with no significant abnormal vitals Labs are significant for WBC count of 16.5, hemoglobin of 14.5, hematocrit 46.7, PT of 15.3, INR of 1.3, PTT of 64.8, lipase of 191, A CT abdomen shows acute pancreatitis Hospital course The patient was admitted to the hospital for acute pancreatitis with no clear underlying etiology. Could be a result of medications, obesity, diabetes but no specifics were found on the images or blood work. He was treated with IV fluids aggressively, pain medication and advancing the diet slowly over the course of hospital stay. He was able to tolerate regular food the day of discharge with no reported abdominal pain or nausea. 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 Time Spent with Patient Time attestation: Total time spent providing and/or coordinating discharge services: Discharge coordination time: Greater than 30 minutes Physical Exam Vital Signs: Vital Signs: Last Vital Signs Temp 97.0 F 06/14/20 07:17 Pulse 91 06/14/20 07:17 Resp 19 06/14/20 07:17 BP 135/86 06/14/20 07:17 Pulse Ox 94 06/14/20 07:17 Body Mass Index 46.1 Const: Other: Constitutional : Alert, oriented, not in distress Neck : Normal inspection, Supple Cardiovascular : RRR, S1 S2, no lower extremity edema Respiratory : Good bilateral air entry, no crackles, wheezes or rhonchi Gastrointestinal: soft, lax, Normal bowel sounds, Non tender Skin : Warm/Dry, No rash Neurological : Alert & oriented x3, No focal deficit DS: Data Data Completed and Pending Labs on day of discharge: Laboratory Results - last 24 hr 06/13/20 06/13/20 06/13/20 11:38 16:36 20:18 POC Glucose 88 92 110 06/14/20 07:19 POC Glucose 102 Preliminary micro results at discharge 06/11/20 21:26 Blood Culture - Preliminary Blood - Venous No growth after 48 hours. 06/11/20 21:05 Blood Culture - Preliminary Blood - Venous No growth after 48 hours. Discharge Plan Discharge Patient Disposition: Home, Self-Care Referrals: Ninoska José MD [Primary Care Provider] - Discharge Medications: Continued allopurinol 300 mg tablet 300 mg PO DAILY Qty: 30 RF: 5 naproxen 500 mg tablet 500 mg PO BID Qty: 90 RF: 8 fluticasone propion-salmeterol [Wixela Inhub] 250-50 mcg/dose blister with device 1 puff PO BID RF: 0 sennosides [senna] 8.6 mg tablet 2 tab PO BEDTIME PRN (Reason: Constipation) RF: 0 Farxiga 5 mg tablet 1 tab PO QAM RF: 0 Discharge Orders: Discharge Order (Routine); Ordered 06/14/20 Ordered By: Lissette Eisenberg Diet: advance to usual diet Activity on Discharge: As tolerated Stand Alone Forms: Patient Portal Discharge page Visit Report Forms: Patient Portal Discharge page Care Plan Goals: Read below Health Concerns: Read below Plan of Treatment: You were admitted to the hospital for evaluation of abdominal pain. Found to have acute pancreatitis based on images. Treated with IV fluid, pain medication advancing her diet slowly over the course of the hospital stay. continue to advance your diet slowly at home. Follow-up with your primary to discuss diabetes medications and risk of pancreatitis
[2020-06-14] MEDS: allopurinoL 300 MG TABLET PO (10:04)
[2020-06-14] MEDS: NaPROXEN 500 MG TABLET PO (10:04)
--- NOTE | 2020-06-14 10:10 | MHC.CM.PN ---
Patient has been medically cleared for dc to home today, no services. Last IMM addressed yesterday.
== END 2020-06-14 10:32 | disposition home or self-care (01) | DRG 439 ==
LOC: HO.ED 22:37 → HO.EDOVER 23:06 → HO.S3 06-12 14:18
PROVIDERS: Nurse Practitioner Family; Admitting Provider Internal Medicine; Emergency Provider Emergency Medicine; PCP Internal Medicine; Visit Provider Student in an Organized Health Care Education/Training Program
DX: K85.90 Acute pancreatitis without necrosis or infection, unspecified (principal); Z68.42 Body mass index [BMI] 45.0-49.9, adult; E66.01 Morbid (severe) obesity due to excess calories; E11.65 Type 2 diabetes mellitus with hyperglycemia; J45.909 Unspecified asthma, uncomplicated; Z20.822 Contact with and (suspected) exposure to COVID-19; M1A.9XX0 Chronic gout, unspecified, without tophus (tophi); Z87.891 Personal history of nicotine dependence; Z79.1 Long term (current) use of non-steroidal anti-inflammatories (NSAID); Z79.51 Long term (current) use of inhaled steroids; Z79.899 Other long term (current) drug therapy
CPT/HCPCS: 36415; 74176; 80048; 80076; 81003; 82947; 83605; 83690; 84478; 84484; 85025; 85027; 85610; 85730; 87040; 87635; 93005; 94660; 96361; 96365; 96375; 99284; 99291; J1170; J1650; J1885; J2270; J2405; J2543

== ENCOUNTER 2020-09-26 06:48 | Outpatient (REF) | payer OTHER, SELFPAY ==
--- NOTE | ~2020-09-26 | XR_ITS ---
EXAMINATION: XR ABDOMEN KUB CLINICAL INDICATION: Calculus of KUB COMPARISON: CT abdomen 06/11/2020 TECHNIQUE: AP view of the abdomen. FINDINGS: There are surgical belen right upper quadrant from previous cholecystectomy. There is scattered stool throughout the colon consistent with constipation. No radiopaque calculi visualized in the midabdomen 2 suspected renal stones. However the transverse colon overlies the midpole left kidney in the upper pole right kidney. No organomegaly. No gross bony abnormality. XR/XR KUB IMPRESSION: Transverse colon overlies the entire left kidney and upper pole right kidney limiting evaluation of kidneys. No radiopaque stone seen at this time. Evidence of previous cholecystectomy.
[2020-09-26 08:10] LABS: MANUAL DIFF FLAG NO
[2020-09-26 08:19] LABS: Basophils Absolute Auto 0.1 X10*3/uL (0.0-0.2); Basophils Percent Auto 0.7 % (0-2); Eosinophils Absolute Auto 0.3 X10*3/uL (0.0-0.4); Eosinophils Percent Auto 4.3 % (0-4); Hematocrit 41.4 % (42-52); Hemoglobin 12.6 g/dl (14.0-18.0); Imm Gran Abs Auto 0.06 X10*3/uL (0.00-0.03); Imm Gran Pct Auto 0.9 % (0.0-0.4); Lymphocytes Absolute Auto 1.5 X10*3/uL (1.2-4.9); Mean Corpuscular HGB Conc 30.4 g/dl (31.0-36.0); Mean Corpuscular Hemoglobin 26.4 pg (27.0-33.0); Mean Corpuscular Volume 86.8 fL (80-98); Mean Platelet Volume 12.4 fL (9.4-12.4); Monocytes Absolute Auto 0.6 X10*3/uL (0.1-1.2); Monocytes Percent Auto 8.6 % (2-11); Neutrophils Absolute Auto 4.5 X10*3/uL (2.0-8.3); Neutrophils Percent Auto 64.5 % (45-73); Platelet Count 289 X10*3/uL (160-400); Red Blood Count 4.77 X10*6/uL (4.60-5.80)
[2020-09-26 08:26] LABS: Estimated Average Glucose 123 mg/dL; Hemoglobin A1c % 5.9 %
[2020-09-26 08:32] LABS: Alanine Aminotransferase 23 U/L (0-40); Albumin Level 4.1 g/dL (3.5-5.0); Alkaline Phosphatase 96 U/L (39-117); Anion Gap 13 (12-20); Aspartate Amino Transferase 16 U/L (5-37); Bilirubin Total 0.2 mg/dL (0.0-1.0); Blood Urea Nitrogen 18 mg/dL (9-16); Calcium 9.2 mg/dL (8.4-10.2); Carbon Dioxide 27 mmol/L (22-29); Chloride 106 mmol/L (96-108); Cholesterol 160 mg/dL; Estimated Glomerular Filt Rate > 60; Glucose Fasting 100 mg/dL (60-99); HDL Cholesterol 29 mg/dL; LDL Cholesterol Calculated 102 mg/dl; Potassium 4.5 mmol/L (3.3-5.1); Sodium 141 mmol/L (135-145); Triglycerides 147 mg/dL
[2020-09-26 19:14] LABS: Creatinine Urine 94.77 mg/dL; Microalbum/Creatinine Ratio Ur 5.2 ug/mg cr
== END 2020-09-26 06:49 | disposition home or self-care (01) ==
LOC: HO.LAB 06:48
PROVIDERS: Nurse Practitioner Family; PCP Internal Medicine; Visit Provider Internal Medicine
DX: N20.0 Calculus of kidney (principal); E11.9 Type 2 diabetes mellitus without complications; E78.5 Hyperlipidemia, unspecified; E66.01 Morbid (severe) obesity due to excess calories
CPT/HCPCS: 36415; 74018; 80053; 80061; 82043; 83036; 85025

== ENCOUNTER 2020-10-03 16:25 | Outpatient (REF) | payer OTHER, SELFPAY ==
--- NOTE | ~2020-10-03 | US_ITS ---
EXAMINATION: US RETROPERITONEAL LIMITED (RENAL ONLY) CLINICAL INFORMATION: Calculus of kidney. COMPARISON: KUB dated 09/26/2020. CT abdomen and pelvis without contrast dated 06/11/2020. Ultrasound abdomen complete dated 12/16/2018. TECHNIQUE: Real-time imaging of the kidneys. FINDINGS: RIGHT KIDNEY: 14.5 x 5.6 x 7.6 cm (SAG x AP x TRV). The kidney is normal in size, contour, and echogenicity. Renal cortical thickness is normal. There is a 2 mm echogenic density with twinkle artifact in the mid pole suggestive of a stone. No focal parenchymal lesions or hydronephrosis. LEFT KIDNEY: 12.9 x 6.2 x 5.3 cm (SAG x AP x TRV). The kidney is normal in size, contour, and echogenicity. Renal cortical thickness is normal. No calculi or focal parenchymal lesions. No hydronephrosis. US/US renal BI IMPRESSION: Small right renal stone.
== END 2020-10-03 16:26 | disposition home or self-care (01) ==
LOC: HO.US 16:25
PROVIDERS: PCP Internal Medicine; Visit Provider Internal Medicine
DX: N20.0 Calculus of kidney (principal)
CPT/HCPCS: 76775

== ENCOUNTER 2020-10-05 13:20 | Outpatient (REF) | payer OTHER, SELFPAY ==
--- NOTE | ~2020-10-05 | CT_ITS ---
EXAMINATION: CT ABDOMEN AND PELVIS WITH CONTRAST CLINICAL INFORMATION: Abdominal pain COMPARISON: Previous renal ultrasound 10/03/[address] of the abdomen and pelvis May 2020 and abdominal ultrasound November 2018 TECHNIQUE: Multidetector volumetric images were obtained from the superior aspect of the liver through the pubic symphysis following administration 85 mL of Omnipaque 350 intravenous contrast. Sagittal and coronal reformatted images were obtained on the technologist's workstation. Oral contrast: Yes This CT examination was performed using dose optimization techniques as appropriate, variously including the following: *Automated exposure control *Adjustment of mA and/or kV according to patient size (this includes techniques or standardized protocols for targeted exams where dose is matched to indication/reason for exam; i.e. extremities or head) *Use of iterative reconstruction technique DLP: 763 mGy-cm FINDINGS: LUNG BASES: There is subsegmental atelectasis at the lung bases. The lung bases are otherwise clear. LIVER, GALLBLADDER, AND BILIARY TREE: The liver is slightly low in attenuation suggestive of fatty infiltration. The liver is otherwise unremarkable. The gallbladder is been removed. There is no biliary duct dilatation. PANCREAS: There is fatty infiltration of the pancreas. The pancreas is otherwise unremarkable. SPLEEN: Unremarkable. ADRENAL GLANDS: Unremarkable. KIDNEYS AND URETERS: There is a small 8 mm low-attenuation lesion in the medial right kidney. This may represent a cyst. The kidneys are otherwise unremarkable. No stone or hydronephrosis is seen. BLADDER: Unremarkable. GASTROINTESTINAL TRACT: The small and large bowel are unremarkable. The appendix is unremarkable. ABDOMINAL WALL: No significant hernia is appreciated. LYMPH NODES: Normal. VASCULAR: Unremarkable. PELVIC VISCERA: Unremarkable. OSSEOUS STRUCTURES: There are degenerative changes of the spine. CT/CT abdomen pelvis w con IMPRESSION: Fatty infiltration of the liver and pancreas. Probable small right renal cyst. No renal stone seen as suggested by ultrasound.
[2020-10-05] MEDS: iohexoL 350 MG/ML 100 ML INFUS..BTL IV (15:54)
[2020-10-05] MEDS: Barium Sulfate Oral (Berry) 450 ML ORAL.SUSP 900 ML PO (15:54)
== END 2020-10-05 13:21 | disposition home or self-care (01) ==
LOC: HO.CT 13:20
PROVIDERS: PCP Internal Medicine; Visit Provider Internal Medicine
DX: R10.9 Unspecified abdominal pain (principal)
CPT/HCPCS: 74177; Q9967

== ENCOUNTER → 2020-10-09 11:20 | Outpatient (BNVA) | payer OTHER, SELFPAY | PROVIDERS: PCP Internal Medicine; Referring Provider Internal Medicine; Visit Provider Surgery | DX: R10.9 Unspecified abdominal pain (principal) | CPT/HCPCS: 99202; 99212 ==

== ENCOUNTER → 2020-12-28 10:35 | Outpatient (BNVA) | payer OTHER, SELFPAY | DX: N28.1 Cyst of kidney, acquired (principal) | CPT/HCPCS: 99202 ==

== ENCOUNTER 2022-02-15 11:30 | Outpatient (REF) | payer OTHER, SELFPAY ==
--- NOTE | ~2022-02-15 | US_ITS ---
EXAMINATION: US RETROPERITONEAL LIMITED (RENAL ONLY) CLINICAL INFORMATION: Cyst of kidney, acquired. COMPARISON: CT abdomen and pelvis 10/05/2020. Renal ultrasound 06/05/2020. X-ray KUB 09/26/2020. Ultrasound abdomen complete 12/16/2018. TECHNIQUE: Real-time imaging of the kidneys. FINDINGS: RIGHT KIDNEY: 14.2 x 5.3 x 6.5 cm (SAG x AP x TRV). The kidney is normal in size, contour, and echogenicity. Renal cortical thickness is normal. There is question of a 2 x 1.7 x 1.5 cyst in the midpole. No renal calculi or hydronephrosis. LEFT KIDNEY: 12.8 x 7.0 x 5.8 cm (SAG x AP x TRV). The kidney is normal in size, contour, and echogenicity. Renal cortical thickness is normal. No calculi or focal parenchymal lesions. No hydronephrosis. US/US renal BI IMPRESSION: Question right renal cyst. Normal left kidney.
== END 2022-02-15 11:31 | disposition home or self-care (01) ==
LOC: HO.US 11:30
DX: N28.1 Cyst of kidney, acquired (principal)
CPT/HCPCS: 76775

== ENCOUNTER 2022-02-19 08:13 | Outpatient (REF) | payer OTHER, SELFPAY ==
[2022-02-19 10:46] LABS: Hematocrit 40.4 % (42.0-52.0); Mean Corpuscular HGB Conc 32.2 g/dl (31.0-36.0); Mean Corpuscular Hemoglobin 27.6 pg (27.0-33.0); Mean Corpuscular Volume 85.8 fL (80.0-98.0); Mean Platelet Volume 12.3 fL (9.4-12.4); Platelet Count 228 X10*3/uL (160-400); Red Blood Count 4.71 X10*6/uL (4.60-5.80); Red Cell Distribution Width 14.2 % (11.0-16.0); White Blood Count 7.6 X10*3/uL (4.8-10.8)
[2022-02-19 10:49] LABS: Alanine Aminotransferase 35 U/L (0-40); Albumin Level 4.2 g/dL (3.5-5.0); Alkaline Phosphatase 96 U/L (39-117); Anion Gap 15 (12-20); Aspartate Amino Transferase 29 U/L (5-37); Bilirubin Total 0.3 mg/dL (0.0-1.0); Blood Urea Nitrogen 15 mg/dL (9-16); Calcium 9.2 mg/dL (8.4-10.2); Carbon Dioxide 25 mmol/L (22-29); Chloride 105 mmol/L (96-108); Cholesterol 193 mg/dL; Estimated Glomerular Filt Rate > 60; Glucose Random 113 mg/dL (60-115); HDL Cholesterol 30 mg/dL; LDL Cholesterol Calculated 118 mg/dl; Potassium 4.3 mmol/L (3.3-5.1); Sodium 141 mmol/L (135-145); Total Protein 7.4 g/dL (6.5-8.0); Triglycerides 225 mg/dL
[2022-02-19 11:13] LABS: TSH reflex Free T4 3.97 uIU/mL (0.32-4.0)
[2022-02-19 11:46] LABS: Folate 13.9 ng/mL (> or = 4.0); Vitamin B12 318 pg/mL (200-900)
== END 2022-02-19 08:14 | disposition home or self-care (01) ==
LOC: HO.10HDL 08:13
PROVIDERS: Absent Provider Urology; Visit Provider Nurse Practitioner Family
DX: Z13.29 Encounter for screening for other suspected endocrine disorder (principal); E11.9 Type 2 diabetes mellitus without complications
CPT/HCPCS: 36415; 80053; 80061; 82306; 82607; 82746; 84443; 85027

== ENCOUNTER 2022-02-22 15:42 | Emergency (ER) | payer OTHER, SELFPAY ==
[2022-02-22 15:52] VITALS: BP 127/61; PULSE 84; RESP 20; TEMP 36.6; O2SAT 96; BMI 40.8
== END 2022-02-22 20:57 | disposition left against medical advice (07) ==
PROVIDERS: Emergency Provider Emergency Medicine; PCP Internal Medicine
DX: R10.9 Unspecified abdominal pain (principal)
CPT/HCPCS: 99212; 99281

== ENCOUNTER 2022-10-22 09:08 | Outpatient (REF) | payer OTHER, SELFPAY ==
[2022-10-22 11:17] LABS: Cholesterol 157 mg/dL; HDL Cholesterol 32 mg/dL; LDL Cholesterol Calculated 97 mg/dl; Triglycerides 144 mg/dL
== END 2022-10-22 09:09 | disposition home or self-care (01) ==
LOC: HO.10HDL 09:08
PROVIDERS: Visit Provider Nurse Practitioner Family
DX: E55.9 Vitamin D deficiency, unspecified (principal); E78.5 Hyperlipidemia, unspecified
CPT/HCPCS: 36415; 80061; 82306

== ENCOUNTER 2023-01-08 11:36 | Outpatient (AMB) | payer OTHER, SELFPAY ==
--- NOTE | 2023-01-08 11:46 | A.OFFVIS_ITS ---
Intake Vital Signs 01/08/23 11:51 Height 6 ft 1 in Weight 318 lb BMI 42.0 BP 122/61 Blood Pressure Location Lt brachial Position Sitting Pulse 93 Intake Visit Reasons: Colonoscopy Screening Intake Note: Patient new consult for 1st pre colonoscopy screening. Patient cc: discomfort hemorrhoids with some blood and loose stool. Denies any other GI issues. Office Professionals Required: No Accompanied by: Spouse Allergies No Known Allergies [NO KNOWN ALLERGIES] Allergy (Unknown, Verified 01/08/23 11:46) UNKNOWN HPI Colonoscopy Screening HPI Details 52 year old? male with past medical hist ory of pancreatitis, hyperli pidemia, ANGEL, constipation, asthma, diabetes, obesity is here today for pre colonoscopy screening.? Patient was sent to us by his PCP.? This is his first colonoscopy screening.? Patient denies any gastrointestinal symptoms in the past or at present.? However patient does have a history of constipation. Occasional loose stools, however he does not empty his bowels completely. Occasional blood on the tissue when he wipes. Denies any personal or family history of gastrointestinal disease, colon polyps, or cancer.? Denies history of difficulty with sedation or anesthesia in the past.? History of sleep apnea, using CPAP every night.? Denies any history of cardiac, renal, pulmonary, or hepatic disease.?? History of moderate asthma. Has not been evaluated by seam press operator. No history of infectious? diseases like hepatitis A, B, C, HIV or tuberculosis.? Patient is not on any anticoagulation therapy. [facility] Medical History Abdominal pain Constipation by delayed colonic transit Costovertebral angle tenderness Diabetes mellitus Gout Moderate asthma Morbid obesity Renal calculi Renal cyst Surgical History History of cholecystectomy Family History Father CVD (cardiovascular disease) Hypertension Diabetes Mother Diabetes Chronic mental illness Sister Down syndrome Sister Hypertension Hypothyroid Social History Household Members: Family Housing: Apartment Do you presently have visiting nurse or other home services: No Alcohol intake: never Patient Tobacco Use Status: Current everyday Tobacco user Tobacco use type: Cigarette Cigarettes Per Day: 5 e-Cigarette/Vaping Use: Never Used Second Hand Smoke Exposure: No Substance Use Type: Marijuana service: No Current occupational status: unemployed Cognitive needs: No Hearing needs: No Vision needs: No Review of Systems Const Denies weight gain and Denies weight loss ENT Reports no additional complaints, Denies dysphagia and Denies odynophagia Card Reports no additional complaints Resp Reports no additional complaints GI Denies abdominal pain, Denies belching, Denies melena, Reports bloating, Reports constipation, Denies dysphagia, Denies excessive flatus, Denies dyspepsia, Denies heartburn, Denies diarrhea, Reports loose stools, Denies nausea, Denies odynophagia and Denies vomiting Reports no additional complaints Musc Reports no additional complaints Neuro Reports no additional complaints Psych Reports no additional complaints Endo Reports no additional complaints Physical Exam Vital Signs: Last Vital Signs Pulse 93 01/08/23 11:51 BP 122/61 01/08/23 11:51 BMI result Body Mass Index 42.0 Const General: healthy appearing, no acute distress and well developed Nutritional Appearance: obese Orientation/consciousness: patient oriented x3 HEENT Head: Yes normal to inspection, Yes normocephalic and Yes atraumatic Face and sinus: Yes normal facial exam Mouth: Normal oral and palatal mucosa present Throat: Yes posterior oropharynx normal, Yes tonsils normal and Yes uvula midline Eyes General: appearance normal, both eyes and all related structures Neck Neck: Yes normal visual inspection, Yes full ROM and Yes trachea midline Thyroid: Thyroid normal Resp Effort & Inspection: normal respiratory effort, able to speak in complete sentences, no tracheal deviation and symmetric chest movement Auscultation: clear to auscultation bilaterally Cardio Rate: regular rate Heart sounds: S1 normal heart sound present and S2 normal heart sound present GI Inspection: Yes normal to inspection, No distended and Yes obesity Palpation (GI): Soft to palpation, not firm, nontender and No hepatosplenomegaly present Auscultation: normal bowel sounds General: Yes no CVA tenderness Back/Spine/Pelvis Back: no CVA tenderness Skin General skin exam: elasticity normal, turgor normal and dry skin Neuro General: patient oriented x3 Psych Appearance: grossly normal Mental Status: mental status grossly normal Speech and movement: Normal speech and movement present Assessment & Plan Assessment & Plan (1) Screen for colon cancer: Code(s): Z12.11 - Encounter for screening for malignant neoplasm of colon Plan: Patient denies any GI, cardiac or respiratory symptoms.? Denies any issues with anesthesia in the past.? History of sleep apnea on CPAP machine. Patient does have a history of moderate asthma. He is on corticosteroid inhaler. Has not been seen by seam press operator. Will refer him to see one for pulmonary function test. No history infectious diseases in the past or present.? Not on any anticoagulation therapy.? No family or personal history of colon cancer or polyps.? Patient denies melena, hematochezia, unintentional weight loss or ribbon like stools.? Discussed at length the pre-procedure,? prep, diet & medications as well as what to expect prior, during and after the procedure.?? Stressed the importance of good bowel prep. ?Recommended the use of Vaseline or Calmoseptine OTC & baby wipes with bowel movements to promote comfort.? ?Patient verbalizes understanding and agrees to plan of care.? He was given the opportunity to ask questions and all questions answered.? We will see him after the procedure.? (2) Constipation: Code(s): K59.00 - Constipation, unspecified Qualifiers: Constipation type: slow transit constipation Qualified Code(s): K59.01 - Slow transit constipation Plan: Patient reports constipation occasional loose stools. Patient states that unable to get Senokot at [facility], will send script for Dulcolax. Patient will call us if it is not going to be effective. I will see him after the procedure, sooner on as needed basis. Patient is agreeable to this plan and verbalizes understanding of instructions. He was given the opportunity to ask questions and all questions answered. Thank you for allowing me to participate in his care Orders: Referrals Pulmonary Medicine Referral J45.909 - Unspecified asthma, uncomplicated Medications: New bisacodyl (Dulcolax (bisacodyl)) 10 mg (2 x 5 mg) PO BEDTIME 180 tabs 4RF polyethylene glycol 3350 (Miralax) As directed by gastro[facility]ology [facility] at [facility] 238 grams PO ONCE 238 grams 0RF Z12.11 - Encounter for screening for malignant neoplasm of colon Discontinued sennosides (senna) Discontinued Reason: Doctor's Order 8.6 mg PO BID 30 days PRN 90 caps 6RF constipation Coding Level of Care Code New Pt Level 3 (29073) Diagnoses Screen for colon cancer Z12.11 Slow transit constipation K59.01 Constipation type: slow transit constipation Time Spent (min) 40 Comment 30 minutes spent with patient and additional 10 minutes spent reviewing his records
[2023-01-08 11:51] VITALS: BP 122/61; PULSE 93; BMI 42.0
== END 2023-01-08 12:30 | disposition home or self-care (01) ==
PROVIDERS: PCP Nurse Practitioner Family; Visit Provider Nurse Practitioner Family
DX: Z12.11 Encounter for screening for malignant neoplasm of colon (principal); K59.01 Slow transit constipation; Z01.818 Encounter for other preprocedural examination
CPT/HCPCS: 99203

== ENCOUNTER → 2023-01-08 11:36 | Outpatient (BNVA) | payer OTHER, SELFPAY | PROVIDERS: PCP Nurse Practitioner Family; Visit Provider Nurse Practitioner Family | DX: K59.01 Slow transit constipation (principal); E66.01 Morbid (severe) obesity due to excess calories; Z68.41 Body mass index [BMI] 40.0-44.9, adult; Z90.49 Acquired absence of other specified parts of digestive tract | CPT/HCPCS: 99202 ==

== ENCOUNTER 2023-01-20 11:59 | Outpatient (AMB) | payer OTHER, SELFPAY ==
[2023-01-20 12:03] VITALS: BP 130/72; PULSE 76; BMI 41.7
--- NOTE | 2023-01-20 12:03 | A.OFFPC_ITS ---
Vital Signs 01/20/23 12:03 Height 6 ft 1 in Weight 316 lb BMI 41.7 BP 130/72 Blood Pressure Location Lt brachial Position Sitting Pulse 76 Pulse Source Pulse Oximeter Oxygen Delivery Method Room Air Intake Visit Reasons: Hemorrhoids Digital Assistant: Not Required per policy Accompanied by: Self / Same As Patient Allergies No Known Allergies [NO KNOWN ALLERGIES] Allergy (Unknown, Verified 01/20/23 12:03) UNKNOWN Tobacco use date assessed: 09/04/22 Dental Screening Dental Screen Date: 01/20/23 Did you have a dental visit in the last 12 months?: Yes Did you have a dental problem in the last 6 months where you did not have access to dental care?: No Was dental information given to patient?: Patient has dentist HPI HPI Comments History of Present Illness Details 52-year-old male past medical history si gnificant for hyperlipidemia, ANGEL, type 2 diabetes mellitus and gout. Patient of Dr. Olvera, patient presents today for hemorrhoid states he was having rectal pain and rectal bleeding in the past. Patient reports was seen by Gastroenterology has an upcoming colonoscopy scheduled in March. Patient states was started Dulcolax stool softener in since then his stools have been soft but formed, denies straining to have BM. Patient also reports use [id number] hydrocortisone cream for hemorrhoids with relief. Patient denies any rectal pain or rectal bleeding this time. Patient declined text transcriber no external hemorrhoids noted on examination. Will send Proctosol to use as needed for hemorrhoids. [facility] Medical History Renal cyst Abdominal pain Constipation by delayed colonic transit Costovertebral angle tenderness Renal calculi Morbid obesity Moderate asthma Diabetes mellitus Gout Surgical History History of cholecystectomy Family History Father CVD (cardiovascular disease) Hypertension Diabetes Mother Diabetes Chronic mental illness Sister Down syndrome Sister Hypertension Hypothyroid Social History Household Members: Family Housing: Apartment Do you presently have visiting nurse or other home services: No Alcohol intake: never Patient Tobacco Use Status: Current everyday Tobacco user Tobacco use type: Cigarette Cigarettes Per Day: 5 e-Cigarette/Vaping Use: Never Used Second Hand Smoke Exposure: No Substance Use Type: Marijuana service: No Current occupational status: unemployed Cognitive needs: No Hearing needs: No Vision needs: No Questionnaire PHQ-9 Over the last 2 weeks, how often have you been bothered by any of the following problems? 1. Little interest or pleasure in doing things: not at all 2. Feeling down, depressed, or hopeless: not at all 3. Trouble falling or staying asleep, or sleeping too much: not at all 4. Feeling tired or having little energy: not at all 5. Poor appetite or overeating: not at all 6. Feeling bad about yourself - or that you are a failure or have let yourself or your family down: not at all 7. Trouble concentrating on things, such as reading the newspaper or watching television: not at all 8. Moving or speaking so slowly that other people could have noticed. Or the opposite - being so fidgety or restless that you have been moving around a lot more than usual: not at all 9. Thoughts that you would be better off or of hurting yourself in some way: not at all Total score: 0 Depression Screening Interpretation: Negative Source: Developed by Drs. Jovon López, Haily Nunez, Anthony Brown and colleagues, with an educational froilan from [employer]. Thrive Questionnaire Date Thrive assessed: 09/04/22 AUDIT C Alcohol Use Questionnaire (AUDIT-C) 1. How often do you have a drink containing alcohol?: Never 3. How often do you have six or more drinks on one occasion?: Never Total Score: 0 Score Reviewed/Action Taken: No PARKER-7 AMB Questionnaire PARKER-7 Date PARKER - 7 assessed: 09/04/22 Source: Developed by Drs. Jovon López, Anthony Arreola and colleagues, with an educational froilan from [employer]. Review of Systems Const Denies chills, Denies fatigue, Denies fever(s) and Denies poor appetite Eyes Denies no additional complaints ENT Reports Normal hearing present Card Denies chest pain, Denies syncope, Denies rapid heart rate and Denies dyspnea Resp Denies cough and Denies dyspnea GI Denies change in stool character, Denies constipation, Denies diarrhea, Denies nausea and Denies vomiting Denies dysuria, Denies urinary frequency and Denies urinary urgency Neuro Reports Normal hearing present, Denies confusion and Denies syncope Psych Denies confusion Endo Denies fatigue Physical exam (Primary Care) Vital Signs: Last Vital Signs Pulse 76 01/20/23 12:03 BP 130/72 01/20/23 12:03 Oxygen Delivery Method Room Air 01/20/23 12:03 BMI result Body Mass Index 41.7 Tobacco/Smoking Status: Tobacco use Status Tobacco use date assessed 09/04/22 01/20/23 12:04 Patient Tobacco Use Status Current everyday Tobacco 01/20/23 12:04 Tobacco use type Cigarette 01/20/23 12:04 e-Cigarette/Vaping Use Never Used 01/20/23 12:04 PHQ-9: PHQ-9 Score PHQ-9: Total score 0 01/20/23 12:19 Depression Screening Interpretation: Negative Thrive Assessment: Date of Thrive Assessment Date Thrive assessed 09/04/22 01/20/23 12:04 Const General: No confusion Orientation/consciousness: No confusion HENMT Head: Yes normocephalic and Yes atraumatic Eyes Conjunctivae: conjunctivae normal Chest Chest palpation & inspection: normal inspection of the chest Resp Effort & Inspection: normal respiratory effort Auscultation: clear to auscultation bilaterally, no crackles, no rhonchi and no wheezes Cardio Rate: regular rate Rhythm: regular rhythm Heart sounds: S1 normal heart sound present and S2 normal heart sound present GI Inspection: Yes normal to inspection Rectal Exam - Male: Yes visual inspection normal Neuro General: No confusion Cranial nerves: Yes Normal hearing present Extrem General: No edema Results AMB Hemoglobin A1c AMB Hemoglobin A1c 6.9 % Last Edit by RESHMA House on 01/20/23 12:14 Results Reviewed Results Reviewed: Laboratory Last Values Hgb A1c (Clinic) 6.9 % (4.0-6.0) H 01/20/23 12:13 Assessment and Plan Assessment & Plan (1) Diabetes mellitus: Code(s): E11.9 - Type 2 diabetes mellitus without complications Qualifiers: Diabetes mellitus complication status: with hyperglycemia Diabetes mellitus terminal make up operator insulin use: without terminal make up operator use Diabetes mellitus type: type 2 Qualified Code(s): E11.65 - Type 2 diabetes mellitus with hyperglycemia Plan: Continue on glipizide 2.5 mg daily hemoglobin A1c elevated at 6.9%. Patient reports he has not been following a diabetic diet, patient advised to do so. Patient educated to decrease the amount of carbohydrate intake such as pasta, bread, rice and potatoes are all sugar in addition to the sweet stuff. Remember that fruits are good but they also have sugar. (2) Hemorrhoids: Code(s): K64.9 - Unspecified hemorrhoids Plan: Proctosol cream sent to patient's pharmacy to use as needed for hemorrhoid. Keep upcoming appointment for colonoscopy screening in March. Follow-up as needed. Plan Keep scheduled follow up with pcp in February. Orders: Orders AMB Hemoglobin A1c Today E11.9 - Type 2 diabetes mellitus without complications Hemoglobin A1c 3 Months E11.9 - Type 2 diabetes mellitus without complications Medications: New hydrocortisone 2.5% (Proctosol HC) 1 appl [place] BID-QID PRN 30 grams 0RF hemorrhoids K64.9 - Unspecified hemorrhoids Coding Level of Care Code Est Pt Level 3 (56653) Diagnoses Type 2 diabetes mellitus with hyperglycemia, without long-term current use of insulin E11.65 Diabetes mellitus complication status: with hyperglycemia Diabetes mellitus terminal make up operator insulin use: without terminal make up operator use Diabetes mellitus type: type 2 Hemorrhoids K64.9 Additional Codes PHQ-9 - 42804 - PHQ-9 Billing: ([id number])
== END 2023-01-20 12:25 | disposition home or self-care (01) ==
PROVIDERS: PCP Nurse Practitioner Family; Visit Provider Nurse Practitioner Family
DX: E11.9 Type 2 diabetes mellitus without complications (principal)
CPT/HCPCS: 83036; 99213

== ENCOUNTER 2023-02-10 14:49 | Outpatient (AMB) | payer OTHER, SELFPAY ==
[2023-02-10 14:53] VITALS: BP 142/80; PULSE 88; O2SAT 94; BMI 42.0
--- NOTE | 2023-02-10 14:53 | A.OFFVIS_ITS ---
Intake Vital Signs 02/10/23 14:53 Height 6 ft 1 in Weight 318 lb BMI 42.0 BP 142/80 H Blood Pressure Location Rt brachial Position Sitting Pulse 88 Pulse Source Pulse Oximeter Pulse Oximetry (%) 94 Oxygen Delivery Method Room Air Intake Visit Reasons: Asthma Financial Management Required: No Picking Belt Operator: Picking Belt Operator offered & declined Accompanied by: Self / Same As Patient Allergies No Known Allergies [NO KNOWN ALLERGIES] Allergy (Unknown, Verified 02/10/23 14:58) UNKNOWN Medication List - Last Reconciled 02/10/23 by Mabel Don LPN albuterol sulfate 90 mcg/actuation 2 puffs inhalation Q4-6H PRN allopurinol 300 mg PO DAILY bisacodyl (Dulcolax (bisacodyl)) 10 mg (2 x 5 mg) PO BEDTIME blood sugar diagnostic (FreeStyle Lite Strips) test daily blood-glucose meter (FreeStyle Lite Meter kit) test daily cholecalciferol (vitamin D3) 50 mcg PO DAILY cyclobenzaprine 10 mg PO BEDTIME 30 days fluticasone propion-salmeterol 250-50 mcg/dose (Advair Diskus) 1 ea PO BID glipizide 2.5 mg (1/2 x 5 mg) PO DAILY hydrocortisone 2.5% (Proctosol HC) 1 appl DC BID-QID PRN lancets (FreeStyle Lancets) test daily polyethylene glycol 3350 (Miralax) 238 grams PO ONCE pravastatin 20 mg PO BEDTIME 90 days HPI Asthma HPI Details Aquilino is a pleasant 52 year old male, current smoker with 20 pack year history, with underlying asthma and obstructive sleep apnea on CPAP. He reports asthma that started in his 20s with a history of intubation due to respiratory distress. He reports progressively worsening symptoms of dyspnea on exertion, wheezing, chest tightness and nonproductive cough. He has been suboptimally controlled on advair 250 mcg and uses albuterol MDI 3-4 times per day with partial relief. He reports father with ANGEL otherwise no other pertinent family history. He denies any occupational exposures. He denies any allergies. He reports recent echocardiogram performed at [facility], report not available. He reports intermittent BLE edema. Denies PND, orthopnea, or chest pain. [facility] Medical History Renal cyst Abdominal pain Constipation by delayed colonic transit Costovertebral angle tenderness Renal calculi Morbid obesity Moderate asthma Diabetes mellitus Gout Surgical History History of cholecystectomy Family History Father CVD (cardiovascular disease) Hypertension Diabetes Mother Diabetes Chronic mental illness Sister Down syndrome Sister Hypertension Hypothyroid Social History (Updated 02/10/23 @ 20:48 by Katelyn Post NP) Household Members: Family Housing: Apartment Do you presently have visiting nurse or other home services: No Alcohol intake: never Patient Tobacco Use Status: Current everyday Tobacco user Tobacco use type: Cigarette Cigarette Packs Per Day: 1 Years Smoked: 20 e-Cigarette/Vaping Use: Never Used Second Hand Smoke Exposure: No Substance Use Type: Marijuana service: No Current occupational status: unemployed Cognitive needs: No Hearing needs: No Vision needs: No Review of Systems Const Denies chills, Denies excessive sweating, Denies fever(s), Denies headache(s) and Denies night sweats Eyes Denies dry eyes, Denies irritation and Denies itchy eyes ENT Reports Normal hearing present, Denies headache(s), Denies nasal congestion, Denies nasal discharge, Denies post nasal drip and Denies sore throat Card Denies chest pain, Denies chest pain at rest, Denies chest pain with activity, Denies claudication, Denies orthopnea and Denies paroxysmal nocturnal dyspnea Resp Denies chest congestion, Denies excessive phlegm production, Denies pain on inspiration, Denies pain with cough and Denies stridor Musc Denies myalgias Neuro Reports Normal hearing present and Denies headache(s) Endo Denies excessive sweating Rafael/Lymph Denies lymphadenopathy Aller/Immun Denies itchy eyes and Denies seasonal rhinorrhea Physical Exam Vital Signs: Last Vital Signs Pulse 88 02/10/23 14:53 BP 142/80 H 02/10/23 14:53 Pulse Ox 94 02/10/23 14:53 Oxygen Delivery Method Room Air 02/10/23 14:53 BMI result Body Mass Index 42.0 Const General: cooperative, healthy appearing, comfortable, no acute distress, well developed and alert Nutritional Appearance: obese Orientation/consciousness: patient oriented x3 Limitations: no limitations HEENT Head: Yes normal to inspection, Yes normocephalic and Yes atraumatic Ears: hearing grossly normal bilaterally and external ears normal Eyes General: appearance normal, both eyes and all related structures Eyelids: Yes eyelids normal Sclerae: sclerae normal EOM: EOMs intact bilaterally Neck Neck: Yes normal visual inspection and Yes no lymphadenopathy Lymphatic: no lymphadenopathy noted Chest Chest palpation & inspection: normal inspection of the chest Resp Effort & Inspection: normal respiratory effort, able to speak in complete sentences, no audible wheezes, no stridor, not tachypneic, no tripod positioning and no use of accessory muscles Auscultation: rhonchi throughout and wheezes expiratory wheezes and scattered wheezes Cardio Jugular venous distension: no JVD Rate: regular rate Rhythm: regular rhythm Skin Other: warm, dry General skin exam: no rashes or lesions noted Neuro General: patient oriented x3 Cranial nerves: Yes Normal hearing present Cognition (Neuro): normal cognition Gait exam (Neuro): Normal gait present Extrem General: Yes normal to inspection and Yes capillary refill normal Psych Appearance: grossly normal and well kempt Speech and movement: Normal speech and movement present and Clear speech present Affect: normal affect Attitude: cooperative Thought process: Normal thought process present Thought content: Normal thought content present Insight: Good insight present (Psych) Judgement: Good judgement present (Psych) Office Procedures Nebulizer Treatment Nebulizer Treatment 92290-Jpvleieuz/MDI RX initial, or Nebulizer Subsequent Treatment Office Meds ipratropium 0.5 mg-albuterol 3 mg (2.5 mg base)/3 mL nebulization soln Performing Provider: Katelyn Post NP Performing Location: [facility] Administered by: Mabel Don LPN on 02/10/23 15:41 Dose Route Admin Location Dispensed Lot Number Expiration Date [facility] Practice Support Specialist 3 mL inhalation 3 mL [id number] 06/25/24 [id number] [facility] Assessment & Plan Assessment & Plan (1) Asthma, severe: Code(s): J45.909 - Unspecified asthma, uncomplicated (2) ANGEL (obstructive sleep apnea): Code(s): G47.33 - Obstructive sleep apnea (adult) (pediatric) (3) Morbid obesity: Code(s): E66.01 - Morbid (severe) obesity due to excess calories (4) Dyspnea: Code(s): R06.00 - Dyspnea, unspecified (5) Personal history of tobacco use: Code(s): Z87.891 - Personal history of nicotine dependence Plan Aquilino's symptoms are likely multifactorial with contribution from pulmonary, cardiac and deconditioning/obesity etiologies. Will send for PFT to throughly evaluate. Will also send for chest CT to assess for parenchymal disease such as emphysema due to smoking history. On exam patient with expiratory wheezing and rhonchi throughout that improved with nebulizer treatment. Nebulizer machine given in office for home use and will send in duoneb to use Q6-8 hours PRN wheezing as well as prednisone. Will also increase Advair from 250 mcg to 500 mcg. Reviewed importance of oral hygiene. Patient aware if symptoms do not improve to call office or seek emergent care if worsen. Patient also with ANGEL, bilateral lower extremity edema and worsening dyspnea. Will attempt to obtain most recet echo from [facility]. If he has not had one performed, will send for echo. All questions were answered and patient is in agreement of plan. Will follow up in 6 weeks to review results and response to inhaler. Orders: Orders AMB Nebulizer Treatment Today J45.909 - Unspecified asthma, uncomplicated PFT pulmonary function test Today J45.909 - Unspecified asthma, uncomplicated CT chest wo IV con Today R06.00 - Dyspnea, unspecified, Z87.891 - Personal history of nicotine dependence Medications: New fluticasone propion-salmeterol 500-50 mcg/dose (Advair Diskus) 1 inh inhalation Q12H 60 ea 3RF prednisone 40 mg (2 x 20 mg) PO DAILY 10 tabs 0RF Coding Level of Care Code New Pt Level 4 (88871) Diagnoses Asthma, severe J45.909 ANGEL (obstructive sleep apnea) G47.33 Morbid obesity E66.01 Dyspnea R06.00 Personal history of tobacco use Z87.891 CPT Codes Nebulizer Treatment - Nebulizer Treatment, initial or subsequent: 19455-Oeaixeam r/MDI RX initial, or Nebulizer Subsequent Treatment ([id number])
== END 2023-02-10 16:08 | disposition home or self-care (01) ==
LOC: HO.HPSW 14:49
PROVIDERS: PCP Nurse Practitioner Family; Referring Provider Nurse Practitioner Family; Visit Provider Nurse Practitioner Family
DX: J45.909 Unspecified asthma, uncomplicated (principal)
CPT/HCPCS: 99204

== ENCOUNTER → 2023-02-10 14:49 | Outpatient (BNVA) | payer OTHER, SELFPAY | PROVIDERS: PCP Nurse Practitioner Family; Visit Provider Nurse Practitioner Family | DX: J45.909 Unspecified asthma, uncomplicated (principal); G47.33 Obstructive sleep apnea (adult) (pediatric); R06.00 Dyspnea, unspecified; E66.01 Morbid (severe) obesity due to excess calories; Z87.891 Personal history of nicotine dependence; Z68.41 Body mass index [BMI] 40.0-44.9, adult | CPT/HCPCS: 94640; 99202 ==

== ENCOUNTER 2023-03-13 09:42 | Outpatient (REF) | payer OTHER, SELFPAY ==
--- NOTE | 2023-03-13 10:26 | PFT_ITS ---
Forced vital capacity 57%, FEV1 36%, and FEV1/FVC ratio is 50. FEZ01-25 19% and MVV is 26%. Post-bronchodilator therapy, the FVC is slightly improved, but all other values are rather somewhat decreased. Total lung capacity is 68% and residual volume 111%. Diffusion capacity is 70%. CONCLUSION: There is evidence of moderate degree of restrictive pulmonary disorder. Also, there is pattern of rather severe obstructive airway disorder with only minimal improvement after bronchodilator therapy. Clinical correlation is recommended. MD WILTON Coto/MODL / [phone]
== END 2023-03-13 09:43 | disposition home or self-care (01) ==
LOC: HO.RESP 09:42
PROVIDERS: PCP Internal Medicine; Visit Provider Nurse Practitioner Family
DX: J45.909 Unspecified asthma, uncomplicated (principal)
CPT/HCPCS: 94010; 94727; 94729

== ENCOUNTER → 2023-03-13 10:26 | Outpatient (BNV) | payer OTHER, SELFPAY | PROVIDERS: PCP Internal Medicine; Visit Provider Internal Medicine | DX: J45.909 Unspecified asthma, uncomplicated (principal) | CPT/HCPCS: 94060; 94727; 94729 ==

== ENCOUNTER 2023-03-18 10:08 | Outpatient (REF) | payer OTHER, SELFPAY ==
--- NOTE | ~2023-03-18 | CT_ITS ---
EXAMINATION: CT CHEST WITHOUT CONTRAST CLINICAL INFORMATION: Dyspnea. COMPARISON: None available. TECHNIQUE: Multidetector volumetric CT imaging of the chest was done. Axial MIP volume rendering provided. Sagittal and coronal reformatted images were obtained. This CT examination was performed using dose optimization techniques as appropriate, variously including the following: *Automated exposure control *Adjustment of mA and/or kV according to patient size (this includes techniques or standardized protocols for targeted exams where dose is matched to indication/reason for exam; i.e. 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 LUNGS: There are numerous bilateral small calcified and noncalcified pulmonary nodules. One of the largest noncalcified nodules on the right is situated within the middle lobe measuring 4 mm (2:279). One of the largest on the left is a 4 mm noncalcified subpleural nodule situated at the posterior apex (5:89). There is bilateral bronchiolar wall thickening, most pronounced at the bases, where there is accompanying bronchiectasis. There is coarse linear scar/subsegmental atelectasis at the lingula and at the posterior medial bases, particularly the right. The central airways appear patent. There is inspissated mucus noted within the dependent leftward trachea extending into the left mainstem bronchus. MEDIASTINUM: The mediastinum is normal. CORONARY ARTERY CALCIFICATION: None visualized on this study. PLEURA: There is no pleural effusion. No pleural mass or thickening. AXILLA: No lymphadenopathy. UPPER ABDOMEN: Unremarkable. OSSEOUS STRUCTURES: There is multi-level marked thoracolumbar spondylosis, with an appearance suggesting possible DISH (diffuse idiopathic skeletal hyperostosis). A lytic lesion with somewhat sclerotic margins is seen within the right posterolateral T10 vertebral body, with extension into the right posterior elements. This appears stable from 06/11/2020. No acute osseous abnormality is seen. CT/CT chest wo IV con IMPRESSION: 1. Multiple noncalcified, nonspecific and benign, calcified small bilateral pulmonary nodules are seen, as detailed. The largest bilaterally measure 4 mm. According to the UPDATED 2017 Fleischner Society recommendations, the advised follow-up imaging for solid nodules < 6 mm is: LOW RISK PATIENT: No routine follow-up. HIGH RISK PATIENT: Optional CT at 12 months. 2. There is bilateral bronchiolar wall thickening, likely infectious or inflammatory in etiology. There is accompanying bronchiectasis, most pronounced at the bases. 3. There is multi-focal moderate lingular and bibasilar scar/subsegmental atelectasis. 4. Skeletal findings suggest possible DISH. A stable lytic lesion is seen within the T10 vertebral body and posterior elements, likely benign and of doubtful clinical significance. If of continued clinical concern (i.e., focal pain at this location or known malignancy), this can be further evaluated with MRI. Fleischner guidelines were followed.
== END 2023-03-18 10:09 | disposition home or self-care (01) ==
LOC: HO.CT 10:08
PROVIDERS: PCP Internal Medicine; Visit Provider Nurse Practitioner Family
DX: R06.00 Dyspnea, unspecified (principal); Z87.891 Personal history of nicotine dependence
CPT/HCPCS: 71250

== ENCOUNTER 2023-05-06 12:55 | Outpatient (AMB) | payer OTHER, SELFPAY ==
[2023-05-06 13:04] VITALS: BP 126/74; PULSE 80; O2SAT 94; BMI 43.0
--- NOTE | 2023-05-06 13:04 | A.OFFVIS_ITS ---
Intake Vital Signs 05/06/23 13:04 Height 6 ft 1 in Weight 326 lb BMI 43.0 BP 126/74 Blood Pressure Location Rt brachial Position Sitting Pulse 80 Pulse Source Pulse Oximeter Pulse Oximetry (%) 94 Oxygen Delivery Method Room Air Intake Visit Reasons: ct results Assistant Manager Bilingual Required: No Surgical Corsetier: Surgical Corsetier offered & declined Accompanied by: Self / Same As Patient Allergies No Known Allergies [NO KNOWN ALLERGIES] Allergy (Unknown, Verified 05/06/23 13:09) UNKNOWN Medication List - Last Reconciled 05/06/23 by Mabel Don LPN albuterol sulfate 90 mcg/actuation 2 puffs inhalation Q4-6H PRN allopurinol 300 mg PO DAILY bisacodyl (Dulcolax (bisacodyl)) 10 mg (2 x 5 mg) PO BEDTIME blood sugar diagnostic (FreeStyle Lite Strips) test daily blood-glucose meter (FreeStyle Lite Meter kit) test daily cholecalciferol (vitamin D3) 50 mcg PO DAILY cyclobenzaprine 10 mg PO BEDTIME 30 days fluticasone propion-salmeterol 500-50 mcg/dose (Advair Diskus) 1 inh inhalation Q12H glipizide 2.5 mg (1/2 x 5 mg) PO DAILY hydrocortisone 2.5% (Proctosol HC) 1 appl CA BID-QID PRN ipratropium-albuterol 0.5 mg-3 mg(2.5 mg base)/3 mL 3 mL inhalation Q6-8H PRN lancets (FreeStyle Lancets) test daily polyethylene glycol 3350 (Miralax) 238 grams PO ONCE pravastatin 20 mg PO BEDTIME [address] results HPI Details Aquilino is a pleasant 52 year old male, current smoker with 20 pack year history, with underlying asthma and obstructive sleep apnea on CPAP. He reports asthma that started in his 20s with a history of intubation due to respiratory distress. He reports progressively worsening symptoms of dyspnea on exertion, wheezing, chest tightness and nonproductive cough. He has been suboptimally controlled on advair 250 mcg and uses albuterol MDI 3-4 times per day with partial relief. At the last visit he was switched from Advair 250 to Advair 500. He continues to report daily use in albuterol due to wheezing and dyspnea. Today he presents to review chest CT and PFT. [facility] Medical History Renal cyst Abdominal pain Constipation by delayed colonic transit Costovertebral angle tenderness Renal calculi Morbid obesity Moderate asthma Diabetes mellitus Gout Surgical History History of cholecystectomy Family History Father CVD (cardiovascular disease) Hypertension Diabetes Mother Diabetes Chronic mental illness Sister Down syndrome Sister Hypertension Hypothyroid Social History (Updated 05/06/23 @ 13:12 by Mabel Don LPN) Household Members: Family Housing: Apartment Do you presently have visiting nurse or other home services: No Alcohol intake: never Comment: pt sleeping Patient Tobacco Use Status: Current everyday Tobacco user Tobacco use type: Cigarette Cigarette Packs Per Day: 1 Years Smoked: 20 e-Cigarette/Vaping Use: Never Used Second Hand Smoke Exposure: No Substance Use Type: Marijuana service: No Current occupational status: unemployed Cognitive needs: No Hearing needs: No Vision needs: No Review of Systems Const Denies chills, Denies excessive sweating, Denies fever(s), Denies headache(s) and Denies night sweats Eyes Denies dry eyes, Denies irritation and Denies itchy eyes ENT Reports Normal hearing present, Denies headache(s), Denies nasal congestion, Denies nasal discharge, Denies post nasal drip and Denies sore throat Card Denies chest pain, Denies chest pain at rest, Denies chest pain with activity, Denies claudication, Denies leg edema, Denies orthopnea and Denies paroxysmal nocturnal dyspnea Resp Denies chest congestion, Denies cough, Denies excessive phlegm production, Denies pain on inspiration, Denies pain with cough and Denies stridor Musc Denies myalgias Neuro Reports Normal hearing present and Denies headache(s) Endo Denies excessive sweating Rafael/Lymph Denies lymphadenopathy Aller/Immun Denies itchy eyes and Denies seasonal rhinorrhea Physical Exam Vital Signs: Last Vital Signs Pulse 80 05/06/23 13:04 BP 126/74 05/06/23 13:04 Pulse Ox 94 05/06/23 13:04 Oxygen Delivery Method Room Air 05/06/23 13:04 BMI result Body Mass Index 43.0 Const General: cooperative, healthy appearing, comfortable, no acute distress, well developed and alert Nutritional Appearance: obese Orientation/consciousness: patient oriented x3 Limitations: no limitations HEENT Head: Yes normal to inspection, Yes normocephalic and Yes atraumatic Ears: hearing grossly normal bilaterally and external ears normal Eyes General: appearance normal, both eyes and all related structures Eyelids: Yes eyelids normal Sclerae: sclerae normal EOM: EOMs intact bilaterally Neck Neck: Yes normal visual inspection and Yes no lymphadenopathy Lymphatic: no lymphadenopathy noted Chest Chest palpation & inspection: normal inspection of the chest Resp Effort & Inspection: normal respiratory effort, able to speak in complete sentences, no audible wheezes, no cough, no stridor, not tachypneic, no tripod positioning and no use of accessory muscles Auscultation: wheezes expiratory wheezes and scattered wheezes Cardio Jugular venous distension: no JVD Rate: regular rate Rhythm: regular rhythm Skin Other: warm, dry General skin exam: no rashes or lesions noted Neuro General: patient oriented x3 Cranial nerves: Yes Normal hearing present Cognition (Neuro): normal cognition Gait exam (Neuro): Normal gait present Extrem General: Yes normal to inspection, Yes capillary refill normal, Yes no clubbing, cyanosis or edema and Yes no pedal edema Psych Appearance: grossly normal and well kempt Speech and movement: Normal speech and movement present and Clear speech present Affect: normal affect Attitude: cooperative Thought process: Normal thought process present Thought content: Normal thought content present Insight: Good insight present (Psych) Judgement: Good judgement present (Psych) Results Reviewed Results Reviewed: [address] [address] [address] Scan Report Signed Patient: Aquilino Maradiaga MR#: [id number] : 1970 Acct:[id number] Age/Sex: 52 / M ADM Date: 03/18/23 Loc: HO.CT Attending Dr: Katelyn Post NP Ordering Physician: Katelyn Post NP Date of Service: 03/18/23 Procedure(s): CT chest wo IV con Accession Number(s): [id number] cc: Ninoska José MD; Katelyn Post NP~ EXAMINATION: CT CHEST WITHOUT CONTRAST CLINICAL INFORMATION: Dyspnea. COMPARISON: None available. TECHNIQUE: Multidetector volumetric CT imaging of the chest was done. Axial MIP volume rendering provided. Sagittal and coronal reformatted images were obtained. This CT examination was performed using dose optimization techniques as appropriate, variously including the following: *Automated exposure control *Adjustment of mA and/or kV according to patient size (this includes techniques or standardized protocols for targeted exams where dose is matched to indication/reason for exam; i.e. 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 LUNGS: There are numerous bilateral small calcified and noncalcified pulmonary nodules. One of the largest noncalcified nodules on the right is situated within the middle lobe measuring 4 mm (2:279). One of the largest on the left is a 4 mm noncalcified subpleural nodule situated at the posterior apex (5:89). There is bilateral bronchiolar wall thickening, most pronounced at the bases, where there is accompanying bronchiectasis. There is coarse linear scar/subsegmental atelectasis at the lingula and at the posterior medial bases, particularly the right. The central airways appear patent. There is inspissated mucus noted within the dependent leftward trachea extending into the left mainstem bronchus. MEDIASTINUM: The mediastinum is normal. CORONARY ARTERY CALCIFICATION: None visualized on this study. PLEURA: There is no pleural effusion. No pleural mass or thickening. AXILLA: No lymphadenopathy. UPPER ABDOMEN: Unremarkable. OSSEOUS STRUCTURES: There is multi-level marked thoracolumbar spondylosis, with an appearance suggesting possible DISH (diffuse idiopathic skeletal hyperostosis). A lytic lesion with somewhat sclerotic margins is seen within the right posterolateral T10 vertebral body, with extension into the right posterior elements. This appears stable from 06/11/2020. No acute osseous abnormality is seen. CT/CT chest wo IV con IMPRESSION: 1. Multiple noncalcified, nonspecific and benign, calcified small bilateral pulmonary nodules are seen, as detailed. The largest bilaterally measure 4 mm. According to the UPDATED 2017 Fleischner Society recommendations, the advised follow-up imaging for solid nodules < 6 mm is: LOW RISK PATIENT: No routine follow-up. HIGH RISK PATIENT: Optional CT at 12 months. 2. There is bilateral bronchiolar wall thickening, likely infectious or inflammatory in etiology. There is accompanying bronchiectasis, most pronounced at the bases. 3. There is multi-focal moderate lingular and bibasilar scar/subsegmental atelectasis. 4. Skeletal findings suggest possible DISH. A stable lytic lesion is seen within the T10 vertebral body and posterior elements, likely benign and of doubtful clinical significance. If of continued clinical concern (i.e., focal pain at this location or known malignancy), this can be further evaluated with MRI. Fleischner guidelines were followed. Assessment & Plan Assessment & Plan (1) Asthma, severe: Code(s): J45.909 - Unspecified asthma, uncomplicated (2) ANGEL (obstructive sleep apnea): Code(s): G47.33 - Obstructive sleep apnea (adult) (pediatric) (3) Morbid obesity: Code(s): E66.01 - Morbid (severe) obesity due to excess calories (4) Dyspnea: Code(s): R06.00 - Dyspnea, unspecified (5) Personal history of tobacco use: Code(s): Z87.891 - Personal history of nicotine dependence (6) Multiple pulmonary nodules: Code(s): R91.8 - Other nonspecific abnormal finding of lung field Plan Reviewed PFT which revealed severe obstructive and moderate restrictive defect. Discussed importance of smoking cessation and weight loss. On exam today faint wheezing appreciated throughout. Will send in prednisone and switch Advair 500 to Trelegy. Reviewed chest CT which revealed bilateral pulmonary nodules <6mm, bilateral bronchiolar wall thickening, likely infectious or inflammatory in etiology and multi-focal moderate lingular and bibasilar scar/subsegmental atelectasis. Will send for repeat chest CT in one year to assess stability of nodules. Chest CT also revealed skeletal findings suggest possible DISH with a stable lytic lesion of the T10 vertebral body and posterior elements, likely benign and of doubtful clinical significance. Will enter referral to pain management. All questions were answered and patient is in agreement of plan. Will follow up in 6 weeks response to inhaler. Orders: Orders CT chest wo IV con 11 Months R91.8 - Other nonspecific abnormal finding of lung field, Z87.891 - Personal history of nicotine dependence Referrals Pain Management Referral M48.10 - Ankylosing hyperostosis [Forestier], site unspecified Medications: New xtnmavnjafr-eggvzwybz-qpxmqfit 200-62.5-25 mcg (Trelegy Ellipta) 1 inh inhalation DAILY 60 ea 3RF prednisone 40 mg (2 x 20 mg) PO DAILY 10 tabs 0RF Discontinued fluticasone propion-salmeterol 500-50 mcg/dose (Advair Diskus) Discontinued Reason: Patient Completed Course 1 inh inhalation Q12H 60 ea 3RF Coding Level of Care Code Est Pt Level 4 (04888) Diagnoses Asthma, severe J45.909 ANGEL (obstructive sleep apnea) G47.33 Morbid obesity E66.01 Dyspnea R06.00 Personal history of tobacco use Z87.891 Multiple pulmonary nodules R91.8
== END 2023-05-06 13:46 | disposition home or self-care (01) ==
PROVIDERS: PCP Internal Medicine; Visit Provider Nurse Practitioner Family
DX: J45.909 Unspecified asthma, uncomplicated (principal); G47.33 Obstructive sleep apnea (adult) (pediatric); E66.01 Morbid (severe) obesity due to excess calories; R06.00 Dyspnea, unspecified; Z87.891 Personal history of nicotine dependence; R91.8 Other nonspecific abnormal finding of lung field
CPT/HCPCS: 99214

== ENCOUNTER → 2023-05-06 12:55 | Outpatient (BNVA) | payer OTHER, SELFPAY | PROVIDERS: PCP Internal Medicine; Visit Provider Nurse Practitioner Family | DX: J45.909 Unspecified asthma, uncomplicated (principal); G47.33 Obstructive sleep apnea (adult) (pediatric); E66.01 Morbid (severe) obesity due to excess calories; R06.00 Dyspnea, unspecified; R91.8 Other nonspecific abnormal finding of lung field; Z87.891 Personal history of nicotine dependence | CPT/HCPCS: 99212 ==

== ENCOUNTER 2023-05-26 09:52 | Outpatient (AMB) | payer OTHER, SELFPAY ==
--- NOTE | 2023-05-26 10:17 | A.OFFVIS_ITS ---
Intake Vital Signs 05/26/23 10:21 Height 6 ft 1 in Weight 331 lb BMI 43.7 BP 118/76 Blood Pressure Location Lt brachial Position Sitting Respiration 12 Pulse 78 Pulse Source Pulse Oximeter Pulse Oximetry (%) 96 Oxygen Delivery Method Room Air Intake Visit Reasons: Ankylosing hyperostosis, site unspecified Allergies No Known Allergies [NO KNOWN ALLERGIES] Allergy (Unknown, Verified 05/26/23 10:22) UNKNOWN Medication List - Last Reconciled 05/26/23 by Angle Jennings LPN albuterol sulfate 90 mcg/actuation 2 puffs inhalation Q4-6H PRN allopurinol 300 mg PO DAILY bisacodyl (Dulcolax (bisacodyl)) 10 mg (2 x 5 mg) PO BEDTIME blood sugar diagnostic (FreeStyle Lite Strips) test daily blood-glucose meter (FreeStyle Lite Meter kit) test daily cholecalciferol (vitamin D3) 50 mcg PO DAILY cyclobenzaprine 10 mg PO BEDTIME 30 days fluticasone furoate-vilanterol 200-25 mcg/dose (Breo Ellipta) 1 inh inhalation DAILY rizywuabnwl-fdoknvfxc-ugsqqokc 200-62.5-25 mcg (Trelegy Ellipta) 1 inh inhalation DAILY glipizide 2.5 mg (1/2 x 5 mg) PO DAILY hydrocortisone 2.5% (Proctosol HC) 1 appl GA BID-QID PRN ipratropium-albuterol 0.5 mg-3 mg(2.5 mg base)/3 mL 3 mL inhalation Q6-8H PRN lancets (FreeStyle Lancets) test daily polyethylene glycol 3350 (Miralax) 238 grams PO ONCE pravastatin 20 mg PO BEDTIME 90 days prednisone 40 mg (2 x 20 mg) PO DAILY umeclidinium 62.5 mcg/actuation (Incruse Ellipta) 1 inh inhalation DAILY HPI Ankylosing hyperostosis, site unspecified HPI Details 52-year-old male who presents today to t he office for an evaluation of ankylosing hyperostosis. The patient was referred by YANETH Zepeda. His past history is notable for gout and asthma, as well as diabetes and pancreatitis. He is unemployed. He has a history of pain in his bilateral arms, neck, and upper back. His pain is rated at 4-5/10 in intensity at night, and that is worse at bedtime. His pain is described as an aching, numbing, and burning sensation. He reports constant fatigue and has difficulty sleeping at night. He sleeps on his sides. He has numbness and swelling in his bilateral feet. He has not tried weight management in the past for weight loss. He is currently on diabetic medications but has not tried Ozempic in the past. He states that he was on Forxiga in the past for diabetes mellitus but later developed pancreatitis. He also reports on and off upper right quadrant pain that might be secondary to his pancreatitis. [facility] Medical History Renal cyst Abdominal pain Constipation by delayed colonic transit Costovertebral angle tenderness Renal calculi Morbid obesity Moderate asthma Diabetes mellitus Gout Surgical History History of cholecystectomy Family History Father CVD (cardiovascular disease) Hypertension Diabetes Mother Diabetes Chronic mental illness Sister Down syndrome Sister Hypertension Hypothyroid Social History (Updated 05/06/23 @ 13:12 by Mabel Don LPN) Household Members: Family Housing: Apartment Do you presently have visiting nurse or other home services: No Alcohol intake: never Comment: pt sleeping Patient Tobacco Use Status: Current everyday Tobacco user Tobacco use type: Cigarette Cigarette Packs Per Day: 1 Years Smoked: 20 e-Cigarette/Vaping Use: Never Used Second Hand Smoke Exposure: No Substance Use Type: Marijuana service: No Current occupational status: unemployed Cognitive needs: No Hearing needs: No Vision needs: No Review of Systems Const All systems reviewed & are unremarkable except as noted in HPI and below Physical Exam Vital Signs: Last Vital Signs Pulse 78 05/26/23 10:21 Resp 12 05/26/23 10:21 BP 118/76 05/26/23 10:21 Pulse Ox 96 05/26/23 10:21 Oxygen Delivery Method Room Air 05/26/23 10:21 BMI result Body Mass Index 43.7 General: Appears afebrile. Alert and oriented. Mood and affect appropriate. Follows and participates in conversation appropriately. Respiratory effort is unlabored. Able to transition from sit to stand unassisted. Ambulates with bilaterally normal heel strike and toe off. Pain is localized in the front of the chest/upper abdomen as well as in the upper/mid back regions. He also complains of tightness and soreness in his right neck and shoulder region. Results Reviewed Results Reviewed: 03/18/23: CT CHEST WITHOUT CONTRAST OSSEOUS STRUCTURES: There is multi-level marked thoracolumbar spondylosis, with an appearance suggesting possible DISH (diffuse idiopathic skeletal hyperostosis). A lytic lesion with somewhat sclerotic margins is seen within the right posterolateral T10 vertebral body, with extension into the right posterior elements. This appears stable from 06/11/2020. No acute osseous abnormality is seen. 10/05/20: CT ABDOMEN AND PELVIS WITH CONTRAST OSSEOUS STRUCTURES: There are degenerative changes of the spine. 06/11/20: CT ABD/PELVIS OSSEOUS STRUCTURES: Lytic focus at the right posterior elements of T10, which may represent a bone cyst. Assessment & Plan Assessment & Plan (1) DISH (diffuse idiopathic skeletal hyperostosis): Code(s): M48.10 - Ankylosing hyperostosis [Forestier], site unspecified (2) Upper back pain: Code(s): M54.9 - Dorsalgia, unspecified Plan I had an extensive discussion with him about posture modification for his upper back symptoms. He is at a higher risk of developing pain in his upper and mid back regions secondary to ankylosis hyperostosis and osteophyte formation. This correlates with his good history of worsening pain over the course of the day. I will also refer him for physical therapy for strengthening of upper back posture. The patient will receive a call to schedule an appointment. A script was also provided to the patient for physical therapy. Scribed for Dr. Lackey by Eduardo Vigil, medical operations supervisor, on 05/26/2023. I, Dr. Lackey, have personally reviewed and agree with the information entered by the scribe. Orders: Orders PT Evaluation and Treatment 05/26/23 M48.10 - Ankylosing hyperostosis [Forestier], site unspecified, M54.9 - Dorsalgia, unspecified Coding Level of Care Code New Pt Level 4 (44776) Diagnoses DISH (diffuse idiopathic skeletal hyperostosis) M48.10 Upper back pain M54.9
[2023-05-26 10:21] VITALS: BP 118/76; PULSE 78; RESP 12; O2SAT 96; BMI 43.7
== END 2023-05-26 10:50 | disposition home or self-care (01) ==
PROVIDERS: PCP Internal Medicine; Visit Provider Internal Medicine
DX: M48.10 Ankylosing hyperostosis [Forestier], site unspecified (principal); M54.9 Dorsalgia, unspecified
CPT/HCPCS: 99204

== ENCOUNTER → 2023-05-26 09:52 | Outpatient (BNVA) | payer OTHER, SELFPAY | PROVIDERS: PCP Internal Medicine; Visit Provider Internal Medicine | DX: M48.10 Ankylosing hyperostosis [Forestier], site unspecified (principal); M54.9 Dorsalgia, unspecified | CPT/HCPCS: 99202 ==

== ENCOUNTER 2023-06-17 13:09 | Outpatient (AMB) | payer OTHER, SELFPAY ==
[2023-06-17 13:12] VITALS: PULSE 74; O2SAT 96; BMI 43.7
--- NOTE | 2023-06-17 13:12 | A.OFFVIS_ITS ---
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 Allergies No Known Allergies [NO KNOWN ALLERGIES] Allergy (Unknown, Verified 06/17/23 13:17) UNKNOWN Medication List - Last Reconciled 06/17/23 by Mabel Don LPN albuterol sulfate 90 mcg/actuation 2 puffs inhalation Q4-6H PRN allopurinol 300 mg PO DAILY bisacodyl (Dulcolax (bisacodyl)) 10 mg (2 x 5 mg) PO BEDTIME blood sugar diagnostic (FreeStyle Lite Strips) test daily blood-glucose meter (FreeStyle Lite Meter kit) test daily cholecalciferol (vitamin D3) 50 mcg PO DAILY cyclobenzaprine 10 mg PO BEDTIME 30 days fluticasone furoate-vilanterol 200-25 mcg/dose (Breo Ellipta) 1 inh inhalation DAILY glipizide 2.5 mg (1/2 x 5 mg) PO DAILY hydrocortisone 2.5% (Proctosol HC) 1 appl SC BID-QID PRN ipratropium-albuterol 0.5 mg-3 mg(2.5 mg base)/3 mL 3 mL inhalation Q6-8H PRN lancets (FreeStyle Lancets) test daily polyethylene glycol 3350 (Miralax) 238 grams PO ONCE pravastatin 20 mg PO BEDTIME 90 days umeclidinium 62.5 mcg/actuation (Incruse Ellipta) 1 inh inhalation DAILY HPI dyspnea: 6 week f/u HPI Details Aquilino is a pleasant 52 year old male, current smoker with 20 pack year history, with underlying asthma and obstructive sleep apnea on CPAP. He reports asthma that started in his 20s with a history of intubation due to respiratory distress. He continues to report dyspnea on exertion, wheezing, chest tightness and nonproductive cough. At the last visit he was switched from Advair 500 to Trelegy and given a 5 day course of prednisone, as he had moderate wheezing on exam. Unfortunately Trelegy was not covered due to insurance denial and patient was placed on Breo as well as Incruse. He feels the Breo has been helpful however can not tolerate the Incruse. He has been using albuterol MDI and duoneb frequently with moderate effect. COUNTS INCLUDE 234 BEDS AT THE [facility] Medical History Renal cyst Abdominal pain Constipation by delayed colonic transit Costovertebral angle tenderness Renal calculi Morbid obesity Moderate asthma Diabetes mellitus Gout Surgical History History of cholecystectomy Family History Father CVD (cardiovascular disease) Hypertension Diabetes Mother Diabetes Chronic mental illness Sister Down syndrome Sister Hypertension Hypothyroid Social History (Updated 06/17/23 @ 13:21 by Mabel Don LPN) Household Members: Family Housing: Apartment Do you presently have visiting nurse or other home services: No Alcohol intake: never Comment: pt sleeping Patient Tobacco Use Status: Never used Tobacco Tobacco use type: Cigarette Cigarette Packs Per Day: 1 Years Smoked: 20 e-Cigarette/Vaping Use: Never Used Second Hand Smoke Exposure: No Substance Use Type: Marijuana service: No Current occupational status: unemployed Cognitive needs: No Hearing needs: No Vision needs: No Review of Systems Const Denies chills, Denies excessive sweating, Denies fever(s), Denies headache(s) and Denies night sweats Eyes Denies dry eyes, Denies irritation and Denies itchy eyes ENT Reports Normal hearing present, Denies headache(s), Denies nasal congestion, Denies nasal discharge, Denies post nasal drip and Denies sore throat Card Denies chest pain, Denies chest pain at rest, Denies chest pain with activity, Denies claudication, Denies leg edema, Denies orthopnea and Denies paroxysmal nocturnal dyspnea Resp Denies chest congestion, Denies cough, Denies excessive phlegm production, Denies pain on inspiration, Denies pain with cough and Denies stridor Musc Denies myalgias Neuro Reports Normal hearing present and Denies headache(s) Endo Denies excessive sweating Rafael/Lymph Denies lymphadenopathy Aller/Immun Denies itchy eyes and Denies seasonal rhinorrhea Physical Exam Vital Signs: Last Vital Signs Pulse 74 06/17/23 13:12 Pulse Ox 96 06/17/23 13:12 Oxygen Delivery Method Room Air 06/17/23 13:12 BMI result Body Mass Index 43.7 Const General: cooperative, healthy appearing, comfortable, no acute distress, well developed and alert Nutritional Appearance: obese Orientation/consciousness: patient oriented x3 Limitations: no limitations HEENT Head: Yes normal to inspection, Yes normocephalic and Yes atraumatic Ears: hearing grossly normal bilaterally and external ears normal Eyes General: appearance normal, both eyes and all related structures Eyelids: Yes eyelids normal Sclerae: sclerae normal EOM: EOMs intact bilaterally Neck Neck: Yes normal visual inspection and Yes no lymphadenopathy Lymphatic: no lymphadenopathy noted Chest Chest palpation & inspection: normal inspection of the chest Resp Effort & Inspection: normal respiratory effort, able to speak in complete sentences, no audible wheezes, no cough, no stridor, not tachypneic, no tripod positioning and no use of accessory muscles Auscultation: wheezes expiratory wheezes and scattered wheezes Cardio Jugular venous distension: no JVD Rate: regular rate Rhythm: regular rhythm Skin Other: warm, dry General skin exam: no rashes or lesions noted Neuro General: patient oriented x3 Cranial nerves: Yes Normal hearing present Cognition (Neuro): normal cognition Gait exam (Neuro): Normal gait present Extrem General: Yes normal to inspection, Yes capillary refill normal, Yes no clubbing, cyanosis or edema and Yes no pedal edema Psych Appearance: grossly normal and well kempt Speech and movement: Normal speech and movement present and Clear speech present Affect: normal affect Attitude: cooperative Thought process: Normal thought process present Thought content: Normal thought content present Insight: Good insight present (Psych) Judgement: Good judgement present (Psych) Assessment & Plan Assessment & Plan (1) Asthma, severe: Code(s): J45.909 - Unspecified asthma, uncomplicated (2) ANGEL (obstructive sleep apnea): Code(s): G47.33 - Obstructive sleep apnea (adult) (pediatric) (3) Morbid obesity: Code(s): E66.01 - Morbid (severe) obesity due to excess calories (4) Dyspnea: Code(s): R06.00 - Dyspnea, unspecified (5) Personal history of tobacco use: Code(s): Z87.891 - Personal history of nicotine dependence (6) Multiple pulmonary nodules: Code(s): R91.8 - Other nonspecific abnormal finding of lung field (7) Environmental allergies: Code(s): Z91.09 - Other allergy status, other than to drugs and biological substances Plan We again reviewed importance of smoking cessation and weight loss. On exam today moderate wheezing appreciated throughout. Will send in longer prednisone taper and attempt Trelegy, since patient could not tolerate Incruse. If no improvements on Trelegy or not approved, we discussed initiating a biologic. Will send for labs to assess candidacy for a biologic. All questions were answered and patient is in agreement of plan. Will follow up in 4-6 weeks response to inhaler and prednisone. Orders: Orders Resp Allergy Profile Region I Today Z91.09 - Other allergy status, other than to drugs and biological substances Complete Blood Count Auto Diff Today R06.00 - Dyspnea, unspecified Immunoglobulin E Today Z91.09 - Other allergy status, other than to drugs and biological substances Medications: New prednisone see taper instructions Take 4 pills daily for 5 days, then go down by 1 pill every 5 days 10 mg PO DIRECTED 50 tabs 0RF Trelegy Ellipta 200-62.5-25 mcg ([id number]-[id number]) 1 inh inhalation DAILY 60 ea 6RF NS Coding Level of Care Code Est Pt Level 4 (34392) Diagnoses Asthma, severe J45.909 ANGEL (obstructive sleep apnea) G47.33 Morbid obesity E66.01 Dyspnea R06.00 Personal history of tobacco use Z87.891 Multiple pulmonary nodules R91.8 Environmental allergies Z91.09
== END 2023-06-17 13:37 | disposition home or self-care (01) ==
PROVIDERS: PCP Internal Medicine; Visit Provider Nurse Practitioner Family
DX: J45.909 Unspecified asthma, uncomplicated (principal); G47.33 Obstructive sleep apnea (adult) (pediatric); E66.01 Morbid (severe) obesity due to excess calories; R06.00 Dyspnea, unspecified; Z87.891 Personal history of nicotine dependence; R91.8 Other nonspecific abnormal finding of lung field; Z91.09 Other allergy status, other than to drugs and biological substances
CPT/HCPCS: 99214

== ENCOUNTER → 2023-06-17 13:09 | Outpatient (BNVA) | payer OTHER, SELFPAY | PROVIDERS: PCP Internal Medicine; Visit Provider Nurse Practitioner Family | DX: R06.00 Dyspnea, unspecified (principal); J45.909 Unspecified asthma, uncomplicated; G47.33 Obstructive sleep apnea (adult) (pediatric); R91.8 Other nonspecific abnormal finding of lung field; Z91.09 Other allergy status, other than to drugs and biological substances; E66.01 Morbid (severe) obesity due to excess calories; Z87.891 Personal history of nicotine dependence; Z68.41 Body mass index [BMI] 40.0-44.9, adult | CPT/HCPCS: 99212 ==

== ENCOUNTER 2023-06-18 09:32 | Outpatient (REF) | payer OTHER, SELFPAY ==
[2023-06-18 10:47] LABS: Basophils Absolute Auto 0.1 X10*3/uL (0.0-0.2); Basophils Percent Auto 0.6 % (0-2); Eosinophils Absolute Auto 0.2 X10*3/uL (0.0-0.4); Eosinophils Percent Auto 2.1 % (0-4); Hematocrit 40.5 % (42.0-52.0); Hemoglobin 12.8 g/dl (14.0-18.0); Imm Gran Abs Auto 0.09 X10*3/uL (0.00-0.03); Imm Gran Pct Auto 1.1 % (0.0-0.4); Lymphocytes Absolute Auto 1.7 X10*3/uL (1.2-4.9); Lymphocytes Percent Auto 19.9 % (20-40); MANUAL DIFF FLAG SCAN; Mean Corpuscular HGB Conc 31.6 g/dl (31.0-36.0); Mean Corpuscular Volume 85.4 fL (80.0-98.0); Mean Platelet Volume 12.3 fL (9.4-12.4); Monocytes Absolute Auto 0.7 X10*3/uL (0.1-1.2); Monocytes Percent Auto 8.3 % (2-11); Neutrophils Absolute Auto 5.7 x10*3/uL (2.0-8.3); PLT CLUMP 1; Red Blood Count 4.74 X10*6/uL (4.60-5.80); Red Cell Distribution Width 14.1 % (11.0-16.0); SCAN SMEAR FLAG 1
[2023-06-18 10:52] LABS: Platelet Count 207 X10*3/uL (160-400); White Blood Count 8.4 X10*3/uL (4.8-10.8)
[2023-06-18 11:06] LABS: SLIDE REVIEW VERIFIED
[2023-06-19 21:57] LABS: Class Alternaria alternata 0; Class Aspergillus fumigatus 0; Class Bermuda Grass 0; Class Birch 0; Class Cat Dander 2; Class Cladosporium herbarum 0; Class Cockroach 0; Class Common Ragweed 0; Class Cottonwood 0; Class Derm. pterony 0/1; Class Dermatophagoides farinae 0/1; Class Dog Dander 2; Class Elm 0; Class Maple Box Elder 0; Class Mountain Cedar 0; Class Mouse Urine Protein 0; Class Mugwort 0; Class Oak 0; Class Penicillium crysogenum 0/1; Class Rough Pigweed 0; Class Sheep Sorrel 0; Class Sycamore 0; Class Timothy Grass 0; Class Walnut Tree 0; Class White Ash 0; Class White Mulberry 0; D001 IgE D pteronyssinus 0.19 kU/L; D002 - IgE D farinae 0.12 kU/L; E001 - IgE Cat Dander 1.21 kU/L; E005 - IgE Dog Dander 0.78 kU/L; E072-IgE Mouse Urine <0.10 kU/L; G002 IgE Bermuda Grass <0.10 kU/L; G006 - IgE Timothy Grass <0.10 kU/L; I006-IgE Cockroach, German <0.10 kU/L; Immunoglobulin E 79 kU/L (<OR=114); M001 IgE Penicillium chrysogen 0.18 kU/L; M002 - IgE Cladosporium herbar <0.10 kU/L; M003 - IgE Aspergillus fumigat <0.10 kU/L; M006 - IgE Alternaria alternat <0.10 kU/L; T001 IgE Maple/Box Elder <0.10 kU/L; T003 IgE Common Silver Birch <0.10 kU/L; T006 - IgE Cedar, Mountain <0.10 kU/L; T007 - IgE Oak, White <0.10 kU/L; T008 IgE Elm, American <0.10 kU/L; T010 - IgE Walnut <0.10 kU/L; T011 - IgE Maple Leaf Sycamore <0.10 kU/L; T014 - IgE Cottonwood <0.10 kU/L; T015 - IgE Ash, White <0.10 kU/L; T070 - IgE White Mulberry <0.10 kU/L; W001 - IgE Ragweed, Short <0.10 kU/L; W006 - IgE Mugwort <0.10 kU/L; W014 IgE Pigweed, Common <0.10 kU/L; W018 IgE Sheep Sorrel <0.10 kU/L
== END 2023-06-18 09:33 | disposition home or self-care (01) ==
LOC: HO.10HDL 09:32
PROVIDERS: Visit Provider Nurse Practitioner Family
DX: Z91.09 Other allergy status, other than to drugs and biological substances (principal); R06.00 Dyspnea, unspecified
CPT/HCPCS: 36415; 82785; 85025; 86003

== ENCOUNTER 2023-07-01 07:49 | Day surgery (SDC) | payer OTHER, SELFPAY ==
[2023-06-27 14:29] VITALS: BMI 42.0
--- NOTE | 2023-07-01 08:30 | HO.ANESPROP2 ---
Documented by User: Olya Burgos NP 06/30/23 09:07 HPI - Anesthesia Eval Consult details Narrative: 52yo M for Colonoscopy PMFSH Active Problems Active Problems: All Active Problems (Updated 06/17/23 @ 20:49 by Katelyn Post NP) Environmental allergies (Acute) Upper back pain (Acute) DISH (diffuse idiopathic skeletal hyperostosis) (Acute) Multiple pulmonary nodules (Acute) Personal history of tobacco use (Acute) Dyspnea (Acute) Asthma, severe (Acute) Hemorrhoids (Acute) Physical exam (Acute) Screen for colon cancer (Acute) Hospital discharge follow-up (Acute) Pancreatitis (Acute) Low vitamin D level (Acute) Hyperlipidemia (Acute) ANGEL (obstructive sleep apnea) (Acute) Screening for hypothyroidism (Acute) Renal cyst (Acute) Abdominal pain (Acute) Constipation by delayed colonic transit (Acute) Costovertebral angle tenderness (Acute) Moderate asthma (Acute) Gout (Acute) Diabetes mellitus (Acute) Renal calculi (Acute) Morbid obesity (Acute) Past Medical History Medical History Renal cyst Abdominal pain Constipation by delayed colonic transit Costovertebral angle tenderness Renal calculi Morbid obesity Moderate asthma Diabetes mellitus Gout Family History Family History Father CVD (cardiovascular disease) Hypertension Diabetes Mother Diabetes Chronic mental illness Sister Down syndrome Sister Hypertension Hypothyroid Surgical History Surgical History History of cholecystectomy Social History Social History (Updated 06/17/23 @ 13:21 by Mabel Don LPN) Household Members: Family Housing: Apartment Do you presently have visiting nurse or other home services: No Alcohol intake: never Comment: pt sleeping Patient Tobacco Use Status: Current everyday Tobacco user Tobacco use type: Cigarette Cigarette Packs Per Day: 1 Years Smoked: 20 Smoked in Last 30 Days: Yes e-Cigarette/Vaping Use: Never Used Patient Interested in Nicotine Replacement: No Second Hand Smoke Exposure: No Substance Use Type: Marijuana Substance Use Frequency: Daily Are you DNR?: No Advance Directives: No Advance Directives Information Provided: Yes Nutrition Risks: No Nutritional Risk service: No Current occupational status: unemployed Cognitive needs: No Hearing needs: No Vision needs: No Meds Allergies Allergy/AdvReac Type Severity Reaction Status Date / Time No Known Allergies Allergy Unknown UNKNOWN Verified 06/17/23 13:17 [NO KNOWN ALLERGIES] Exam Height,Weight and Vital Signs: Height 6 ft 1 in Weight 144.242 kg Pertinent Lab Results Pertinent Lab Results: Laboratory Tests 06/18/23 09:40 WBC 8.4 Hgb 12.8 L Hct 40.5 L Plt Count 207 Assessment and Plan Assessment Anesthesia Assessment: Chart Reviewed Documented by User: Chelita Soto DO 07/01/23 08:35 HPI - Anesthesia Eval Consult details Narrative: 52yo M for Colonoscopy. ANGEL on CPAP. Smoker. Last marijuana use on Tuesday 06/27. PMFSH Past Medical History Medical History Renal cyst Abdominal pain Constipation by delayed colonic transit Costovertebral angle tenderness Renal calculi Morbid obesity Moderate asthma Diabetes mellitus Gout Family History Family History Father CVD (cardiovascular disease) Hypertension Diabetes Mother Diabetes Chronic mental illness Sister Down syndrome Sister Hypertension Hypothyroid Family history of problems with anesthesia: No Surgical History Surgical History History of cholecystectomy History of Problems with Anesthesia: No Social History Social History (Updated 06/17/23 @ 13:21 by Mabel Don LPN) Household Members: Family Housing: Apartment Do you presently have visiting nurse or other home services: No Alcohol intake: never Comment: pt sleeping Patient Tobacco Use Status: Current everyday Tobacco user Tobacco use type: Cigarette Cigarette Packs Per Day: 1 Years Smoked: 20 Smoked in Last 30 Days: Yes e-Cigarette/Vaping Use: Never Used Patient Interested in Nicotine Replacement: No Second Hand Smoke Exposure: No Substance Use Type: Marijuana Substance Use Frequency: Daily Are you DNR?: No Advance Directives: No Advance Directives Information Provided: Yes Nutrition Risks: No Nutritional Risk service: No Current occupational status: unemployed Cognitive needs: No Hearing needs: No Vision needs: No Meds Allergies Allergy/AdvReac Type Severity Reaction Status Date / Time No Known Allergies Allergy Unknown UNKNOWN Verified 06/17/23 13:17 [NO KNOWN ALLERGIES] Exam Exam Date and Time: July 01, 2023 0830 Height,Weight and Vital Signs: Height 6 ft 1 in Weight 144.242 kg Height 6 ft 1 in Weight 144.242 kg Airway Mallampati Class: III TM Dist: <=3cm Neck ROM: Full Loose/Missing/Broken Teeth: Yes (multiple missing teeth) Heart: S1S2 Lungs: CTAB Assessment and Plan Assessment Anesthesia Assessment: Anesthesia Plan Discussed and Chart Reviewed Final Anesthetic Review Family History of Problems with Anesthesia: No History of Problems with Anesthesia: No NPO: Yes ASA Class: III Final Preanesthetic Review: No Changes in Pt Med Stat, Meds/Allgs Chart Reviewed, Consent Obtained/Reviewed and Anes Risks/Benef Reviewed Patient Risk: Intermediate Procedure Risk: Low Anesthetic Plan Anesthetic Plan: MAC: and Agree w/ Assess. and Plan Disposition: Standard PACU
[2023-07-01 08:46] LABS: Glucose, Whole Blood 76 mg/dL (60-115)
[2023-07-01] MEDS: Lactated Ringers 1,000 ML 100 ML IVCONT (08:48)
[2023-07-01 08:49] VITALS: BP 117/67; PULSE 67; RESP 18; TEMP 36.6; O2SAT 94
[2023-07-01 08:50] VITALS: BMI 43.7
--- NOTE | 2023-07-01 08:54 | MHC.SHP ---
Pre-Procedural Eval Section A - 24 Hr Update-Section A only Date of Service: 07/01/23 Section B - Complete if H&P > 30 days Chief Complaint: screening Relevant Family History (Specify if Yes): No Relevant Social History: Tobacco Use Present Medications: see Short Stay Collaborative assessment Medical History: Significant History (Renal cyst Abdominal pain Constipation by delayed colonic transit Costovertebral angle tenderness Renal calculi Morbid obesity Moderate asthma Diabetes mellitus Gout) History of Previous Operations: Relevant previous surgery/procedure and date(s) (History of cholecystectomy) Allergies: Allergies Allergy/AdvReac Type Severity Reaction Status Date / Time No Known Allergies Allergy Unknown UNKNOWN Verified 06/17/23 13:17 [NO KNOWN ALLERGIES] Review of Systems Sugical H&P ROS: Negative: Constitution, Cardiovascular, Respiratory, Neurological, Psychiatric, Hem-Onc, Allergic/Immunologic, Gastrointestinal, Genitourinary, Musculoskeletal, Integumentary, Endocrine and Eyes/Ears/Nose/Throat Exam Surgical H&P Exam: Normal: HEENT, Normal: Heart, Normal: Lungs, Normal: Extremities, Normal: Abdomen, Normal: Skin and Normal: Neurological Exam Comment: obese Plan Diagnosis/Plan: Unchanged I have reviewed the history and physical and performed a pertinent physical examination on my patient. No changes have occurred unless specified. Time Spent With Patient Time: Total time managing care of this patient today ____ minutes.
--- NOTE | 2023-07-01 08:55 | W.PM.OPN ---
Operative Note Operative Note Date of Service: 07/01/23 Narrative: Operative Information Procedure Description: Colonoscopy Indication: screening Anesthesia: MAC COLONOSCOPY Instrument: Olympus variable stiffness ADULT scope 190L Colonoscopy Monitoring: Vital signs and clinical assessment, continuous EKG monitoring, Pulse oximetry, Carbon Dioxide monitoring and blood pressure monitoring were done throughout the procedure. Colon withdrawal time was 12 minutes. Procedure: The patient was placed in the left lateral decubitis position and pre-procedure medications were administered. After a digital rectal examination of the ano-rectum, the video colonoscope was inserted into the rectum and advanced through the colon to the cecum/TI. The colonoscope was slowly withdrawn in a retrograde panoramic fashion and the colon mucosa was carefully examined including a retroflexed view of the rectum. Findings and interventions are described below. Procedure Difficulty: easy Findings: Terminal Ileum-normal Cecum:normal Ascending Colon: normal Transverse Colon -normal Descending Colon:normal Sigmoid Colon: mild diverticulosis Rectum: Retroflexion with small internal hemorrhoids seen, grade I Anorectum - normal Colon preparation: [place] Bowel Preparation Scale Right colon; 2 Transverse colon: 2 Left colon; 1-2 (0 = Unprepared colon segment with mucosa not seen due to solid stool that cannot be cleared. 1 = Portion of mucosa of the colon segment seen, but other areas of the colon segment not well seen due to staining, residual stool and/or opaque liquid. 2 = Minor amount of residual staining, small fragments of stool and/or opaque liquid, but mucosa of colon segment seen well. 3 = Entire mucosa of colon segment seen well with no residual staining, small fragments of stool or opaque liquid) Impression and Post Procedure Diagnosis: diverticulosis internal hemorrhoids Plan: High fiber diet leaflet Avoid straining at stool, epsom salts and sitz bath, anusol supps or cream Repeat Colonoscopy in 1-2 years due to areas with thick debris or earlier if clinically indicated, consider 2 d prep next time Above findings were reviewed with the patient and relevant handouts were provided if indicated.
--- NOTE | 2023-07-01 09:07 | PC.NURSE ---
dr dominguez aware of poc. pt is asymptomatic
[2023-07-01 09:35] VITALS: BP 143/73; PULSE 71; RESP 18; TEMP 36.2; O2SAT 95
[2023-07-01 09:50] VITALS: BP 122/72; PULSE 69; RESP 18; TEMP 36.2; O2SAT 94
== END 2023-07-01 10:33 | disposition home or self-care (01) ==
PROVIDERS: PCP Internal Medicine; Visit Provider Internal Medicine Gastroenterology
PROC: 0DJD8ZZ Inspection of Lower Intestinal Tract, Via Natural or Artificial Opening Endoscopic (ICD-10-PCS; CPT 45378; principal; 2023-07-01 09:50)
DX: Z12.11 Encounter for screening for malignant neoplasm of colon (principal); K57.30 Diverticulosis of large intestine without perforation or abscess without bleeding; K64.0 First degree hemorrhoids; E11.9 Type 2 diabetes mellitus without complications; E78.5 Hyperlipidemia, unspecified; J45.909 Unspecified asthma, uncomplicated; F17.210 Nicotine dependence, cigarettes, uncomplicated; E66.9 Obesity, unspecified; Z68.41 Body mass index [BMI] 40.0-44.9, adult
CPT/HCPCS: 45378; 82947; J2250; J2405; J2704

== ENCOUNTER → 2023-07-01 07:49 | Outpatient (BNV) | payer OTHER, SELFPAY | PROVIDERS: PCP Internal Medicine; Visit Provider Internal Medicine Gastroenterology | DX: Z12.11 Encounter for screening for malignant neoplasm of colon (principal); K57.30 Diverticulosis of large intestine without perforation or abscess without bleeding; K64.8 Other hemorrhoids | CPT/HCPCS: 45378 ==

== ENCOUNTER 2023-07-15 10:41 | Outpatient (AMB) | payer OTHER, SELFPAY ==
--- NOTE | 2023-07-15 10:46 | MHC.OFFVIS ---
Intake Vital Signs 07/15/23 10:50 Height 6 ft 1 in Weight 335 lb 1.642 oz BMI 44.2 BP 135/80 Blood Pressure Location Lt brachial Position Sitting Pulse 72 Intake Visit Reasons: S/p colon Intake Note: Aquilino presents in the office as a follow up colonoscopy. CC: No concerns other than he was throwing up and having diarrhea. It happened a few days after. is concerned of pictures - states he has pockets in his colon. 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 Denies any issues with anesthesia in the past.? History of sleep apnea on CPAP machine. Patient does have a history of moderate asthma. He is on corticosteroid inhaler. 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 Will refer him to see one for pulmonary function test. No history infectious diseases in the past or present.? Not on any anticoagulation therapy.? No family or personal history of colon cancer or polyps.? Patient denies melena, hematochezia, unintentional weight loss or ribbon like stools.? Discussed at length the pre-procedure,? prep, diet & medications as well as what to expect prior, during and after the procedure.?? Stressed the importance of good bowel prep. ?Recommended the use of Vaseline or Calmoseptine OTC & baby wipes with bowel movements to promote comfort.? ?Patient verbalizes understanding and agrees to plan of care.? He was given the opportunity to ask questions and all questions answered.? We will see him after the procedure.? Constipation Patient reports constipation occasional loose stools. Patient states that unable to get Senokot at [facility], will send script for Dulcolax. Patient will call us if it is not going to be effective. I will see him after the procedure, sooner on as needed basis. Patient is agreeable to this plan and verbalizes understanding of instructions. He was given the opportunity to ask questions and all questions answered. ? Thank you for allowing me to participate in his care Plan Orders Referrals Pulmonary Medicine Referral J45.909 Medications New bisacodyl (Dulcolax (bisacodyl)) 10 mg (2 x 5 mg) PO BEDTIME 180 tabs 4RF polyethylene glycol 3350 (Miralax) As directed by gastroenterology department at [facility] 238 grams PO ONCE 238 grams 0RF Z12.11 Discontinued sennosides (senna) Discontinued Reason: Doctor's Order 8.6 mg PO BID 30 days PRN 90 caps 6RF constipation COLONOSCOPY Findings: Terminal Ileum-normal Cecum:normal Ascending Colon: normal Transverse Colon -normal Descending Colon:normal Sigmoid Colon: mild diverticulosis Rectum: Retroflexion with small internal hemorrhoids seen, grade I Anorectum - normal Colon preparation: [place] Bowel Preparation Scale Right colon; 2 Transverse colon: 2 Left colon; 1-2 (0 = Unprepared colon segment with mucosa not seen due to solid stool that cannot be cleared. 1 = Portion of mucosa of the colon segment seen, but other areas of the colon segment not well seen due to staining, residual stool and/or opaque liquid. 2 = Minor amount of residual staining, small fragments of stool and/or opaque liquid, but mucosa of colon segment seen well. 3 = Entire mucosa of colon segment seen well with no residual staining, small fragments of stool or opaque liquid) Impression and Post Procedure Diagnosis: diverticulosis internal hemorrhoids Plan: High fiber diet leaflet Avoid straining at stool, epsom salts and sitz bath, anusol supps or cream Repeat Colonoscopy in 1-2 years due to areas with thick debris or earlier if clinically indicated, consider 2 d prep next time TODAY'S VISIT Patient is here today for follow-up and to discuss colonoscopy results. Patient denies any ill effects from the prep, anesthesia or procedure itself. However patient does report that few days after his procedure he was having diarrhea and was feeling nauseous. Couple episodes of vomiting. Patient reports that he felt well the next day otherwise. Patient denies any melena, hematochezia, unintentional weight loss or ribbon like stools. Patient is aware that he needs to lose weight and needs to stop binge eating. Patient reports that when he is bored he tends to eat. Patient admits to be eating bigger portions PFSH Medical History (Updated 07/15/23 @ 11:07 by Yenni Hernandez [facility]) Diverticulosis Renal cyst Abdominal pain Constipation by delayed colonic transit Costovertebral angle tenderness Renal calculi Morbid obesity Moderate asthma Diabetes mellitus Gout Surgical History (Updated 07/15/23 @ 10:47 by RESHMA Bowen) Hx of colonoscopy History of cholecystectomy Family History Father CVD (cardiovascular disease) Hypertension Diabetes Mother Diabetes Chronic mental illness Sister Down syndrome Sister Hypertension Hypothyroid Social History Household Members: Family Housing: Apartment Do you presently have visiting nurse or other home services: No Alcohol intake: never Comment: pt sleeping Patient Tobacco Use Status: Current everyday Tobacco user Tobacco use type: Cigarette Cigarette Packs Per Day: 1 Years Smoked: 20 e-Cigarette/Vaping Use: Never Used Second Hand Smoke Exposure: No Substance Use Type: Marijuana service: No Current occupational status: unemployed Cognitive needs: No Hearing needs: No Vision needs: No Review of Systems Const Denies weight gain and Denies weight loss ENT Reports no additional complaints, Denies dysphagia and Denies odynophagia Card Reports no additional complaints Resp Reports no additional complaints GI Denies abdominal pain, Denies belching, Denies melena, Denies bloating, Denies change in bowel habits, Denies dysphagia, Denies excessive flatus, Denies dyspepsia, Denies heartburn, Denies diarrhea, Denies loose stools, Denies nausea, Denies odynophagia and Denies vomiting Reports no additional complaints Musc Reports no additional complaints Neuro Reports no additional complaints Psych Reports no additional complaints Endo Reports no additional complaints Physical Exam Vital Signs: Last Vital Signs Pulse 72 07/15/23 10:50 BP 135/80 07/15/23 10:50 BMI result Body Mass Index 44.2 Const General: no acute distress Nutritional Appearance: obese Orientation/consciousness: patient oriented x3 Resp Effort & Inspection: normal respiratory effort, able to speak in complete sentences, no tracheal deviation and symmetric chest movement Auscultation: clear to auscultation bilaterally Cardio Rate: regular rate GI Inspection: Yes obesity Palpation (GI): Soft to palpation, not firm, nontender and No hepatosplenomegaly present Auscultation: normal bowel sounds General: Yes no CVA tenderness Back/Spine/Pelvis Back: no CVA tenderness Skin General skin exam: elasticity normal, turgor normal and dry skin Neuro General: patient oriented x3 Psych Appearance: grossly normal Mental Status: mental status grossly normal Assessment & Plan Assessment & Plan (1) Diverticulosis: Code(s): K57.90 - Diverticulosis of intestine, part unspecified, without perforation or abscess without bleeding (2) Constipation: Code(s): K59.00 - Constipation, unspecified Qualifiers: Constipation type: chronic idiopathic constipation Qualified Code(s): K59.04 - Chronic idiopathic constipation (3) Status post colonoscopy: Code(s): Z98.890 - Other specified postprocedural states Plan Patient will continue taking Dulcolax daily. Increase fluid intake and activity to promote better bowel motility. Patient was encouraged to eat smaller meals. Weight loss encouraged. High-fiber diet recommended, patient can take fiber supplements as well as probiotics.. No polyps found, moderate diverticulosis of sigmoid colon and internal hemorrhoids without complications found. Patient had suboptimal prep and will need to repeat colonoscopy in 1-2 years. Patient will follow-up in the office in 1 year, sooner if needed. He is agreeable to this plan and verbalizes understanding of instructions he was given the opportunity to ask questions and all questions answered. Thank you for allowing me to participate in his care Medications: Discontinued fluticasone furoate-vilanterol 200-25 mcg/dose (Breo Ellipta) Discontinued Reason: Patient no longer taking 1 inh inhalation DAILY 60 ea 3RF umeclidinium 62.5 mcg/actuation (Incruse Ellipta) Discontinued Reason: Patient Completed Course 1 inh inhalation DAILY 30 ea 3RF Coding Level of Care Code Est Pt Level 3 (77336) Diagnoses Diverticulosis K57.90 Chronic idiopathic constipation K59.04 Constipation type: chronic idiopathic constipation Status post colonoscopy Z98.890 Time Spent (min) 30 Comment 20 minutes spent with patient and additional 10 minutes spent reviewing his records
[2023-07-15 10:50] VITALS: BP 135/80; PULSE 72; BMI 44.2
== END 2023-07-15 11:37 | disposition home or self-care (01) ==
PROVIDERS: PCP Internal Medicine; Visit Provider Nurse Practitioner Family
DX: K57.90 Diverticulosis of intestine, part unspecified, without perforation or abscess without bleeding (principal); K59.04 Chronic idiopathic constipation; Z98.890 Other specified postprocedural states
CPT/HCPCS: 99213

== ENCOUNTER → 2023-07-15 10:41 | Outpatient (BNVA) | payer OTHER, SELFPAY | PROVIDERS: PCP Internal Medicine; Visit Provider Nurse Practitioner Family | DX: K57.90 Diverticulosis of intestine, part unspecified, without perforation or abscess without bleeding (principal); K59.04 Chronic idiopathic constipation; Z98.890 Other specified postprocedural states | CPT/HCPCS: 99212 ==

== ENCOUNTER 2023-09-16 10:02 | Outpatient (AMB) | payer OTHER, SELFPAY ==
[2023-09-16 10:08] VITALS: BP 114/68; PULSE 68; O2SAT 96; BMI 44.7
--- NOTE | 2023-09-16 10:08 | A.OFFVIS_ITS ---
Vital Signs 09/16/23 10:08 Height 6 ft 1 in Weight 339 lb 2 oz BMI 44.7 BP 114/68 Blood Pressure Location Rt brachial Position Sitting Pulse 68 Pulse Source Pulse Oximeter Pulse Oximetry (%) 96 Oxygen Delivery Method Room Air Intake Visit Reasons: Dyspnea Allergies No Known Allergies [NO KNOWN ALLERGIES] Allergy (Unknown, Verified 09/16/23 10:11) UNKNOWN HPI HPI Dyspnea: Details: Aquilino is a pleasant 52 year old male, recently quit smoking 3 weeks ago with 20 pack year history, with underlying severe asthma h/o intubation, DMII and ANGEL on CPAP through [facility]. He has failed Advair, Breo and Incruse due to suboptimal repsonse. He has required two steroid bursts this year, once in April and another in May. Trelegy was sent in at the last visit and he reports significant improvements in symptoms, now with intermittent wheezing and chest tightness which resolves with albuterol. However he continues to report dyspnea with exertion. He denies any orthopnea or BLE edema. [facility] Medical History (Updated 07/15/23 @ 11:07 by Yenni Hernandez [facility]-) Diverticulosis Renal cyst Abdominal pain Constipation by delayed colonic transit Costovertebral angle tenderness Renal calculi Morbid obesity Moderate asthma Diabetes mellitus Gout Surgical History (Updated 07/15/23 @ 10:47 by RESHMA Bowen) Hx of colonoscopy History of cholecystectomy Family History Father CVD (cardiovascular disease) Hypertension Diabetes Mother Diabetes Chronic mental illness Sister Down syndrome Sister Hypertension Hypothyroid Social History (Updated 09/16/23 @ 10:10 by Alexandrea Thorne [facility]) Household Members: Family Housing: Apartment Do you presently have visiting nurse or other home services: No Alcohol intake: never Comment: pt sleeping Patient Tobacco Use Status: Former Tobacco user Tobacco use type: Cigarette Years Smoked: 20 e-Cigarette/Vaping Use: Never Used Second Hand Smoke Exposure: No Substance Use Type: Marijuana service: No Current occupational status: unemployed Cognitive needs: No Hearing needs: No Vision needs: No Review of Systems Const Denies chills, Denies excessive sweating, Denies fever(s), Denies headache(s) and Denies night sweats Eyes Denies dry eyes, Denies irritation and Denies itchy eyes ENT Reports Normal hearing present, Denies headache(s), Denies nasal congestion, Denies nasal discharge, Denies post nasal drip and Denies sore throat Card Denies chest pain, Denies chest pain at rest, Denies chest pain with activity, Denies claudication, Denies leg edema, Reports dyspnea on exertion, Denies orthopnea and Denies paroxysmal nocturnal dyspnea Resp Denies chest congestion, Denies cough, Denies excessive phlegm production, Denies pain on inspiration, Denies pain with cough, Reports dyspnea on exertion and Denies stridor Musc Denies myalgias Neuro Reports Normal hearing present and Denies headache(s) Endo Denies excessive sweating Rafael/Lymph Denies lymphadenopathy Aller/Immun Denies itchy eyes and Denies seasonal rhinorrhea Physical Exam Vital Signs: Last Vital Signs Pulse 68 09/16/23 10:08 BP 114/68 09/16/23 10:08 Pulse Ox 96 09/16/23 10:08 Oxygen Delivery Method Room Air 09/16/23 10:08 BMI result Body Mass Index 44.7 Const General: cooperative, healthy appearing, comfortable, no acute distress, well developed and alert Nutritional Appearance: obese Orientation/consciousness: patient oriented x3 Limitations: no limitations HEENT Head: Yes normal to inspection, Yes normocephalic and Yes atraumatic Ears: hearing grossly normal bilaterally and external ears normal Eyes General: appearance normal, both eyes and all related structures Eyelids: Yes eyelids normal Sclerae: sclerae normal EOM: EOMs intact bilaterally Neck Neck: Yes normal visual inspection and Yes no lymphadenopathy Lymphatic: no lymphadenopathy noted Chest Chest palpation & inspection: normal inspection of the chest Resp Effort & Inspection: normal respiratory effort, able to speak in complete sentences, no audible wheezes, no cough, no stridor, not tachypneic, no tripod positioning and no use of accessory muscles Auscultation: diminished lung sounds (clear) Cardio Jugular venous distension: no JVD Rate: regular rate Rhythm: regular rhythm Skin Other: warm, dry General skin exam: no rashes or lesions noted Neuro General: patient oriented x3 Cranial nerves: Yes Normal hearing present Cognition (Neuro): normal cognition Gait exam (Neuro): Normal gait present Extrem General: Yes normal to inspection, Yes capillary refill normal, Yes no clubbing, cyanosis or edema and Yes no pedal edema Psych Appearance: grossly normal and well kempt Speech and movement: Normal speech and movement present and Clear speech present Affect: normal affect Attitude: cooperative Thought process: Normal thought process present Thought content: Normal thought content present Insight: Good insight present (Psych) Judgement: Good judgement present (Psych) Assessment & Plan Assessment & Plan (1) Asthma, severe: Code(s): J45.909 - Unspecified asthma, uncomplicated Category: Medical (2) ANGEL (obstructive sleep apnea): Code(s): G47.33 - Obstructive sleep apnea (adult) (pediatric) Category: Medical (3) Morbid obesity: Code(s): E66.01 - Morbid (severe) obesity due to excess calories Category: Medical (4) Dyspnea: Code(s): R06.00 - Dyspnea, unspecified Category: Medical (5) Personal history of tobacco use: Code(s): Z87.891 - Personal history of nicotine dependence Category: Social Hx (6) Multiple pulmonary nodules: Code(s): R91.8 - Other nonspecific abnormal finding of lung field Category: Medical (7) Environmental allergies: Code(s): Z91.09 - Other allergy status, other than to drugs and biological substances Category: Medical Plan Aquilino reports significant improvements since initiating Trelegy and albuterol PRN. Advised to continue. Applauded patient on smoking cessation, encouraged to continue. We reviewed RAST which was positive for dust mite, mold, cat and dog. At this time he feels his allergy symptoms are controlled. He continues to report dyspnea on exertion, will send for echo to assess for a cardiac component contributing to symptoms. At this time will hold off on initiating biologic therapy. All questions were answered and patient is in agreement of plan. Will follow up to review results or sooner if needed. Orders: Orders CA echo transthoracic complete Today R06.00 - Dyspnea, unspecified Coding Level of Care Code Est Pt Level 4 (14050) Diagnoses Asthma, severe J45.909 ANGEL (obstructive sleep apnea) G47.33 Morbid obesity E66.01 Dyspnea R06.00 Personal history of tobacco use Z87.891 Multiple pulmonary nodules R91.8 Environmental allergies Z91.09
--- NOTE | 2023-09-16 10:08 | MHC.OFFVIS ---
Vital Signs 09/16/23 10:08 Height 6 ft 1 in Weight 339 lb 2 oz BMI 44.7 Intake Visit Reasons: Dyspnea Allergies No Known Allergies [NO KNOWN ALLERGIES] Allergy (Unknown, Verified 07/15/23 10:48) UNKNOWN [facility] Medical History (Updated 07/15/23 @ 11:[address] [facility]) Diverticulosis Renal cyst Abdominal pain Constipation by delayed colonic transit Costovertebral angle tenderness Renal calculi Morbid obesity Moderate asthma Diabetes mellitus Gout Surgical History (Updated 07/15/23 @ 10:47 by RESHMA Bowen) Hx of colonoscopy History of cholecystectomy Family History Father CVD (cardiovascular disease) Hypertension Diabetes Mother Diabetes Chronic mental illness Sister Down syndrome Sister Hypertension Hypothyroid Social History Household Members: Family Housing: Apartment Do you presently have visiting nurse or other home services: No Alcohol intake: never Comment: pt sleeping Patient Tobacco Use Status: Current everyday Tobacco user Tobacco use type: Cigarette Cigarette Packs Per Day: 1 Years Smoked: 20 e-Cigarette/Vaping Use: Never Used Second Hand Smoke Exposure: No Substance Use Type: Marijuana service: No Current occupational status: unemployed Cognitive needs: No Hearing needs: No Vision needs: No Coding
== END 2023-09-16 10:25 | disposition home or self-care (01) ==
PROVIDERS: PCP Internal Medicine; Visit Provider Nurse Practitioner Family
DX: J45.909 Unspecified asthma, uncomplicated (principal); G47.33 Obstructive sleep apnea (adult) (pediatric); E66.01 Morbid (severe) obesity due to excess calories; R06.00 Dyspnea, unspecified; Z87.891 Personal history of nicotine dependence; R91.8 Other nonspecific abnormal finding of lung field; Z91.09 Other allergy status, other than to drugs and biological substances
CPT/HCPCS: 99214

== ENCOUNTER → 2023-09-16 10:02 | Outpatient (BNVA) | payer OTHER, SELFPAY | PROVIDERS: PCP Internal Medicine; Visit Provider Nurse Practitioner Family | DX: J45.909 Unspecified asthma, uncomplicated (principal); G47.33 Obstructive sleep apnea (adult) (pediatric); E66.01 Morbid (severe) obesity due to excess calories; R06.00 Dyspnea, unspecified; R91.8 Other nonspecific abnormal finding of lung field; Z91.09 Other allergy status, other than to drugs and biological substances; Z87.891 Personal history of nicotine dependence; Z68.41 Body mass index [BMI] 40.0-44.9, adult | CPT/HCPCS: 99212 ==

== ENCOUNTER → 2023-10-10 10:54 | Outpatient (REF) | payer OTHER, SELFPAY ==
--- NOTE | 2023-10-10 10:59 | CA_ITS ---
Transthoracic Echocardiogram Patient (Last, First, Middle): Aquilino Maradiaga, Gender: Male Date of : 1970 Age: 52 Procedure Date: 10/10/2023 Procedure Type: Transthoracic Echocardiogram Location: OP Height: 185.42 cm Weight: 153.77 kg BSA: 2.69 m2 Heart Rate: 78 bpm BP: 116 / 72 mmHg Home Furnishings Sales Representative: SB Referring MD: Katelyn Post NP Symptoms: R06.00 - Dyspnea, unspecified Study Quality: Fair ECG Rhythm: Sinus Conclusions: - The left ventricular systolic function is normal. The calculated ejection fraction is 61% by biplane method. - No obvious valvular pathology seen on this study. Findings Procedure Information Contrast agent, definity, is being given per protocol without apparent complications. The quality of the study was technically difficult. The study quality is limited by patients body habitus. Left Ventricle Normal left ventricular cavity size. There is normal left ventricular wall thickness. The left ventricular systolic function is normal. The calculated ejection fraction is 61% by biplane method. There is no evidence of regional wall motion abnormalities. Diastolic function is normal for age. Right Ventricle Normal right ventricular cavity size and systolic function. Atria Both atria are normal in size. Aortic Valve The aortic valve was not well visualized. There is no aortic valve stenosis. There is no aortic valve regurgitation. Mitral Valve The mitral valve appears normal. There is no mitral valve regurgitation. There is no mitral valve stenosis. Pulmonic Valve The pulmonic valve is likely normal. Tricuspid Valve The tricuspid valve was not well visualized. Tricuspid regurgitation envelope is inadequate for calculation of right ventricular systolic pressure. Great Vessels The asc aorta is normal in size. Venous The inferior vena cava is normal in size and collapses less than 50% with inspiration. Pericardium/Pleural There is no evidence of pericardial effusion. Prior Study Comparison No prior study available for comparison. Recommendations, Care & Conclusions No obvious valvular pathology seen on this study. Measurements 2D Linear Measurements IVSd: 0.86 0.6-0.9/0.6-1.0 cm LVIDd: 5.90 3.9-5.3/4.2-5.9 cm LVIDd Index: 2.19 2.4-3.2/2.2-3.1 cm/m2 LVIDs: 4.28 2.0-3.6 cm LVPWd: 0.79 0.7-1.1 cm LA Diam: 3.60 2.7-3.8/3.0-4.0 cm LAIDs Index: 1.34 1.5-2.3 cm/m2 LV Mass: 235.24 67-162/88-224 g LV Mass Index: 87.45 43-95/49-115 g/m2 LVOT Diam: 2.20 3.0+(-)1.3 cm 2D Systolic Function EF 4C: 62.10 >55% EF 2C: 63.20 >55% EF BiP: 61.40 >55% Mitral Valve MV Pk E: 0.85 MV PK A: 0.64 MV Decel Time: 142.00 E/A: 1.30 E'Lateral: 12.50 E'Medial: 9.57 E/E' Med: 8.90 E/E' Lat: 6.80 PHT: 42.00 MVA PHT: 5.24 Decel Davison: 5.96 Aortic Valve AoV Pk Joey: 1.22 AoV Pk Grad: 6.00 BALBIR: 2.87 LVOT LVOT Pk Joey: 1.02 LVOT Mn Joey: 0.71 LVOT VTI: 0.19 LVOT Pk Grad: 4.00 LVOT Mn Grad: 2.00 LVOT Diam: 2.20 LVOT Area: 3.80 Diastolic Function MV Pk E: 0.85 MV Pk A: 0.64 E/A: 1.30 E'Medial: 9.57 E/E' Med: 8.90 E' Laterial: 12.50 E/E' Lat: 6.80 Right Ventricle TAPSE (mm): 25.00 TVS' Joey: 11.00 Tricuspid Valve RA Press: 8.00 Great Vessels Aorta Sinus of Valsalva: 3.80 2.0-3.5 cm Ao Asc: 3.90 2.1-3.4 cm Ao Arch: 2.40 Ao Desc: 2.60 Pulmonary Valve PV Pk Joey: 0.92 Peak PV Grad: 3.00 Updated in Other Vendor System with Status of Final Saroj Westfall MD electronically signed on 10/11/2023 1:09:04 PM with status of Final
== END ==
LOC: HO.CARD 10:54
PROVIDERS: PCP Internal Medicine; Visit Provider Nurse Practitioner Family
DX: R06.00 Dyspnea, unspecified (principal)
CPT/HCPCS: 93306; Q9957

== ENCOUNTER → 2023-10-10 10:59 | Outpatient (BNV) | payer OTHER, SELFPAY | PROVIDERS: PCP Internal Medicine; Visit Provider Internal Medicine | DX: R06.00 Dyspnea, unspecified (principal) | CPT/HCPCS: 93306 ==

== ENCOUNTER 2024-01-09 15:31 | Outpatient (AMB) | payer OTHER, SELFPAY ==
--- NOTE | 2024-01-09 15:34 | A.OFFVIS_ITS ---
Vital Signs 01/09/24 15:35 Height 6 ft 1 in Weight 326 lb BMI 43.0 BP 130/64 Blood Pressure Location Rt brachial Position Sitting Pulse 92 Pulse Source Pulse Oximeter Pulse Oximetry (%) 94 Oxygen Delivery Method Room Air Intake Visit Reasons: dyspnea Allergies No Known Allergies [NO KNOWN ALLERGIES] Allergy (Unknown, Verified 01/09/24 15:37) UNKNOWN HPI HPI dyspnea: Details: Aquilino is a pleasant 53 year old male, current smoker with 20 pack year history, with underlying severe asthma h/o intubation, DMII and ANGEL on CPAP through [facility]. He has failed Advair, Breo and Incruse due to suboptimal repsonse. He has been doing well on Trelegy and albuterol MDI, reporting intermittent wheezing and chest tightness. Prior was persistent. He continues to report dyspnea with exertion. [facility] Medical History (Updated 07/15/23 @ 11:07 by Yenni Hernandez, [facility]-) Diverticulosis Renal cyst Abdominal pain Constipation by delayed colonic transit Costovertebral angle tenderness Renal calculi Morbid obesity Moderate asthma Diabetes mellitus Gout Surgical History (Updated 07/15/23 @ 10:47 by RESHMA Bowen) Hx of colonoscopy History of cholecystectomy Family History Father CVD (cardiovascular disease) Hypertension Diabetes Mother Diabetes Chronic mental illness Sister Down syndrome Sister Hypertension Hypothyroid Social History (Updated 01/09/24 @ 15:37 by Alexandrea Thorne [facility]) Household Members: Family Housing: Apartment Do you presently have visiting nurse or other home services: No Alcohol intake: never Comment: pt sleeping Patient Tobacco Use Status: Current someday Tobacco user Tobacco use type: Cigarette Cigarettes Per Day: 10 Years Smoked: 20 e-Cigarette/Vaping Use: Never Used Second Hand Smoke Exposure: No Substance Use Type: Marijuana service: No Current occupational status: unemployed Cognitive needs: No Hearing needs: No Vision needs: No Review of Systems Const Denies chills, Denies excessive sweating, Denies fever(s), Denies headache(s) and Denies night sweats Eyes Denies dry eyes, Denies irritation and Denies itchy eyes ENT Reports Normal hearing present, Denies headache(s), Denies nasal congestion, Denies nasal discharge, Denies post nasal drip and Denies sore throat Card Denies chest pain, Denies chest pain at rest, Denies chest pain with activity, Denies claudication, Denies leg edema, Reports dyspnea on exertion, Denies ortho pnea and Denies paroxysmal nocturnal dyspnea Resp Denies chest congestion, Denies cough, Denies excessive phlegm production, Denies pain on inspiration, Denies pain with cough, Reports dyspnea on exertion and Denies stridor Musc Denies myalgias Neuro Reports Normal hearing present and Denies headache(s) Endo Denies excessive sweating Rafael/Lymph Denies lymphadenopathy Aller/Immun Denies itchy eyes and Denies seasonal rhinorrhea Physical Exam Vital Signs: Last Vital Signs Pulse 92 01/09/24 15:35 BP 130/64 01/09/24 15:35 Pulse Ox 94 01/09/24 15:35 Oxygen Delivery Method Room Air 01/09/24 15:35 BMI result Body Mass Index 43.0 Const General: cooperative, healthy appearing, comfortable, no acute distress, well developed and alert Nutritional Appearance: obese Orientation/consciousness: patient oriented x3 Limitations: no limitations HEENT Head: Yes normal to inspection, Yes normocephalic and Yes atraumatic Ears: hearing grossly normal bilaterally and external ears normal Eyes General: appearance normal, both eyes and all related structures Eyelids: Yes eyelids normal Sclerae: sclerae normal EOM: EOMs intact bilaterally Neck Neck: Yes normal visual inspection and Yes no lymphadenopathy Lymphatic: no lymphadenopathy noted Chest Chest palpation & inspection: normal inspection of the chest Resp Effort & Inspection: normal respiratory effort, able to speak in complete sentences, no audible wheezes, no cough, no stridor, not tachypneic, no tripod positioning and no use of accessory muscles Auscultation: wheezes expiratory wheezes and scattered wheezes Cardio Jugular venous distension: no JVD Rate: regular rate Rhythm: regular rhythm Skin Other: warm, dry General skin exam: no rashes or lesions noted Neuro General: patient oriented x3 Cranial nerves: Yes Normal hearing present Cognition (Neuro): normal cognition Gait exam (Neuro): Normal gait present Extrem General: Yes normal to inspection, Yes capillary refill normal, Yes no clubbing, cyanosis or edema and Yes no pedal edema Psych Appearance: grossly normal and well kempt Speech and movement: Normal speech and movement present and Clear speech present Affect: normal affect Attitude: cooperative Thought process: Normal thought process present Thought content: Normal thought content present Insight: Good insight present (Psych) Judgement: Good judgement present (Psych) Assessment & Plan Assessment & Plan (1) Asthma, severe: Code(s): J45.909 - Unspecified asthma, uncomplicated Category: Medical (2) ANGEL (obstructive sleep apnea): Code(s): G47.33 - Obstructive sleep apnea (adult) (pediatric) Category: Medical (3) Morbid obesity: Code(s): E66.01 - Morbid (severe) obesity due to excess calories Category: Medical (4) Dyspnea: Code(s): R06.00 - Dyspnea, unspecified Category: Medical (5) Personal history of tobacco use: Code(s): Z87.891 - Personal history of nicotine dependence Category: Social Hx (6) Multiple pulmonary nodules: Code(s): R91.8 - Other nonspecific abnormal finding of lung field Category: Medical (7) Environmental allergies: Code(s): Z91.09 - Other allergy status, other than to drugs and biological substances Category: Medical Plan Aquilino reports significant improvements since initiating Trelegy and albuterol PRN. He has required two steroid bursts this year, once in April and another in May. Unfortunately has wheezing on exam today and will require another round of steroids. He also has had significant life stressors and has returned to smoking. We had long discussion regarding steroid use and severity of asthma. Agreed to move forward with initiating Dupixent. All questions were answered and patient is in agreement of plan. Will follow up in 2 months or sooner if needed. Medications: New prednisone 40 mg (2 x 20 mg) PO DAILY 10 tabs 0RF Refilled Trelegy Ellipta 200-62.5-25 mcg (hrumrbdrsqa-ntquduyep-vyzidwmt) 1 inh inhalation DAILY 60 ea 6RF NS Coding Level of Care Code Est Pt Level 4 (09169) Diagnoses Asthma, severe J45.909 ANGEL (obstructive sleep apnea) G47.33 Morbid obesity E66.01 Dyspnea R06.00 Personal history of tobacco use Z87.891 Multiple pulmonary nodules R91.8 Environmental allergies Z91.09
[2024-01-09 15:35] VITALS: BP 130/64; PULSE 92; O2SAT 94; BMI 43.0
== END 2024-01-09 16:02 | disposition home or self-care (01) ==
PROVIDERS: PCP Internal Medicine; Visit Provider Nurse Practitioner Family
DX: J45.909 Unspecified asthma, uncomplicated (principal); G47.33 Obstructive sleep apnea (adult) (pediatric); E66.01 Morbid (severe) obesity due to excess calories; R06.00 Dyspnea, unspecified; Z87.891 Personal history of nicotine dependence; R91.8 Other nonspecific abnormal finding of lung field; Z91.09 Other allergy status, other than to drugs and biological substances
CPT/HCPCS: 99214

== ENCOUNTER → 2024-01-09 15:31 | Outpatient (BNVA) | payer OTHER, SELFPAY | PROVIDERS: PCP Internal Medicine; Visit Provider Nurse Practitioner Family | DX: J45.909 Unspecified asthma, uncomplicated (principal); G47.33 Obstructive sleep apnea (adult) (pediatric); E66.01 Morbid (severe) obesity due to excess calories; R06.00 Dyspnea, unspecified; R91.8 Other nonspecific abnormal finding of lung field; F17.210 Nicotine dependence, cigarettes, uncomplicated; Z91.09 Other allergy status, other than to drugs and biological substances; Z99.89 Dependence on other enabling machines and devices; Z68.41 Body mass index [BMI] 40.0-44.9, adult | CPT/HCPCS: 99212 ==

== ENCOUNTER 2024-01-22 10:29 | Outpatient (AMB) | payer OTHER, SELFPAY ==
[2024-01-22 10:32] VITALS: BP 108/56; PULSE 101; RESP 12; O2SAT 98; BMI 42.6
--- NOTE | 2024-01-22 10:32 | A.OFFPC_ITS ---
Vital Signs 01/22/24 10:32 01/22/24 11:06 Height 6 ft 1 in Weight 323 lb BMI 42.6 BP 108/56 L Blood Pressure Location Lt brachial Position Sitting Respiration 12 Pulse 101 H 82 Pulse Source Pulse Oximeter Pulse Oximetry (%) 98 Oxygen Delivery Method Room Air Intake Visit Reasons: [place] from [place] Intake Note: Patient is here to transfer from [place] offices. Patient reports he has pain down his arms, trouble sleeping, and overall feeling tired. Patient reports he has a cpap machine and uses it every night, but finds himself feeling exhausted and restless. Insurance Biller Required: No Accompanied by: Self / Same As Patient Allergies No Known Allergies [NO KNOWN ALLERGIES] Allergy (Unknown, Verified 01/22/24 10:37) UNKNOWN Tobacco use date assessed: 01/22/24 Dental Screening Dental Screen Date: 01/22/24 Did you have a dental visit in the last 12 months?: Yes Did you have a dental problem in the last 6 months where you did not have access to dental care?: No Was dental information given to patient?: Patient has dentist HPI HPI Comments History of Present Illness Details This is a 53-year-old male with a past medical history of obesity, dish, multiple pulmonary nodules, severe asthma, pancreatitis, hyperlipidemia, obstructive sleep apnea, gout and type 2 diabetes [facility]. He transferred from the office in [place]. This is closer to his place of employment. Severe asthma-followed by [facility]. He has done a lot better since he was switched from Advair to Trelegy. He was put on a burst of prednisone a week ago for wheezing. He is waiting to start Dupixent. It was approved, but he had to request a new prescription for the autoinjector. He has not smoked cigarettes for a week. He has quit in the past. He usually smokes when he is triggered by stress. He changed jobs so he has a lot more security now with his position, and this makes his life a lot less stressful. Type 2 diabetes-compliant with glipizide 2.5 mg daily. His last A1c was less than 7%, but he is overdue. He was on Farxiga which was discontinued due to side effects. Metformin caused diarrhea and exacerbated bleeding from he morrhoids. Obstructive sleep apnea-compliant with CPAP. Gout-on allopurinol. Denies symptoms. Hyperlipidemia-she stopped taking pravastatin because it was causing back pain. He had a recent echocardiogram which was normal. He denies chest pain or shortness of breath. The patient says he gets a lot of aches and pains in his shoulders and in his back which he attributes to osteoarthritis and being very physical during the day. He takes his 's ibuprofen. ROS: Constitutional: No unexplained weight loss, fever, chills, fatigue or night sweats. Respiratory: No shortness of breath today. Patient feels much better since taking prednisone. Denies hemoptysis or increased cough. Cardiovascular: No chest pain, chest pressure or chest discomfort. No palpitations or pedal edema. Neurologic: No headache, dizziness, syncope, unilateral weakness, ataxia, numbness or tingling in the extremities. Endocrine: No cold or heat intolerance. No polyuria or polydipsia. Physical exam: Constitutional: Alert, in no distress. Neck: Supple, Full range of motion. No lymphadenopathy. No palpable thyroid masses. Respiratory: Clear to auscultation. Cardiovascular: S1 S2 regular. No murmurs. Neurologic: No focal neurological deficits. Musculoskeletal: Shoulders with full range of motion, nontender to palpation. Extremities: Warm and well perfused. No clubbing, cyanosis or edema. Psychiatric: Normal mood and affect [facility] Medical History (Updated 01/22/24 @ 14:05 by JARVIS Burgos) Type 2 diabetes mellitus Joint pain Diverticulosis Renal cyst Abdominal pain Constipation by delayed colonic transit Costovertebral angle tenderness Renal calculi Morbid obesity Moderate asthma Diabetes mellitus Gout Surgical History Hx of colonoscopy History of cholecystectomy Family History Father CVD (cardiovascular disease) Hypertension Diabetes Mother Diabetes Chronic mental illness Sister Down syndrome Sister Hypertension Hypothyroid Social History Household Members: Family Housing: Apartment Do you presently have visiting nurse or other home services: No Alcohol intake: never Comment: pt sleeping Patient Tobacco Use Status: Current someday Tobacco user Tobacco use type: Cigarette Cigarettes Per Day: 10 Years Smoked: 20 e-Cigarette/Vaping Use: Never Used Second Hand Smoke Exposure: No Substance Use Type: Marijuana service: No Current occupational status: unemployed Cognitive needs: No Hearing needs: No Vision needs: No Questionnaire Thrive Questionnaire Date Thrive assessed: 09/04/22 PARKER-7 AMB Questionnaire PARKER-7 Date PARKER - 7 assessed: 09/04/22 Source: Developed by Drs. Jovon López, Haily Nunez, Anthony Brown and colleagues, with an educational froilan from [employer]. Physical exam (Primary Care) Vital Signs: Last Vital Signs Pulse 82 01/22/24 11:06 Resp 12 01/22/24 10:32 BP 108/56 L 01/22/24 10:32 Pulse Ox 98 01/22/24 10:32 Oxygen Delivery Method Room Air 01/22/24 10:32 BMI result Body Mass Index 42.6 Tobacco/Smoking Status: Tobacco use Status Tobacco use date assessed 01/22/24 01/22/24 10:38 Patient Tobacco Use Status Current someday Tobacco 01/22/24 10:38 Tobacco use type Cigarette 01/22/24 10:38 e-Cigarette/Vaping Use Never Used 01/22/24 10:38 Thrive Assessment: Date of Thrive Assessment Date Thrive assessed 09/04/22 01/22/24 10:38 Assessment and Plan Assessment & Plan (1) Joint pain: Code(s): M25.50 - Pain in unspecified joint Plan: Patient has a history of DISH. States he also has a arthritis. We will check Lyme screening to be cautious. Prescribed topical diclofenac gel. If it is i neffective we could consider alternating with Tylenol and prescription meloxicam. Discussed meloxicam side effects and that it may increase hemorrhoidal bleeding. (2) Personal history of tobacco use: Code(s): Z87.891 - Personal history of nicotine dependence Plan: He quit 1 week ago. (3) ANGEL (obstructive sleep apnea): Code(s): G47.33 - Obstructive sleep apnea (adult) (pediatric) Plan: Compliant with CPAP. Weight loss and avoidance of alcohol encouraged. (4) Asthma, severe: Code(s): J45.909 - Unspecified asthma, uncomplicated Plan: Patient will be starting Dupixent. Followed by pulmonology. Continue Trelegy and albuterol as needed. Not interested in further COVID-19 vaccination. Recommended annual influenza vaccine and pneumonia vaccine. He will get these at the pharmacy. 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 Check diabetic labs. Plan Follow up in 3 months for diabetes. Orders: Orders Lipid Panel Today E11.65 - Type 2 diabetes mellitus with hyperglycemia, E66.01 - Morbid (severe) obesity due to excess calories, E78.5 - Hyperlipidemia, unspecified Prostate Specific Antigen Today E11.65 - Type 2 diabetes mellitus with hyperglycemia, E66.01 - Morbid (severe) obesity due to excess calories, E78.5 - Hyperlipidemia, unspecified, Z12.5 - Encounter for screening for malignant neoplasm of prostate TSH reflex Free T4 Today E11.65 - Type 2 diabetes mellitus with hyperglycemia, E66.01 - Morbid (severe) obesity due to excess calories, E78.5 - Hyperlipidemia, unspecified Microalbumin, Random (w Creat) Today E11.65 - Type 2 diabetes mellitus with hyperglycemia, E66.01 - Morbid (severe) obesity due to excess calories, E78.5 - Hyperlipidemia, unspecified Comprehensive Met. Panel Today E11.65 - Type 2 diabetes mellitus with hyperglycemia, E66.01 - Morbid (severe) obesity due to excess calories, E78.5 - Hyperlipidemia, unspecified Hemoglobin A1c Today E11.65 - Type 2 diabetes mellitus with hyperglycemia, E66.01 - Morbid (severe) obesity due to excess calories, E78.5 - Hyperlipidemia, unspecified Lyme IgG/IgM w/reflex to WB Today M25.50 - Pain in unspecified joint Medications: New diclofenac sodium 1% (Voltaren Arthritis Pain) apply 4 g to each affected area up to 4 times daily; maximum dose per joint: 16 g/day; maximum total body dose (all combined joints): 32 g/day 100 grams 2RF Discontinued pravastatin Discontinued Reason: Doctor's Order 20 mg PO BEDTIME 90 days 90 tabs 1RF E78.5 - Hyperlipidemia, unspecified prednisone Discontinued Reason: Doctor's Order 40 mg (2 x 20 mg) PO DAILY 10 tabs 0RF Patient Instructions: Please have fasting labwork completed. We discussed COVID-19 vaccine, flu vaccine and pneumonia vaccine. We decided you will get the flu vaccine and pneumonia vaccines. Please call your pharmacy to set these up. Please wait until you are off Prednisone for 2 weeks. Coding Level of Care Code Est Pt Level 4 (05629) Complex EM visit Add On G2211 Diagnoses Joint pain M25.50 Personal history of tobacco use Z87.891 ANGEL (obstructive sleep apnea) G47.33 Asthma, severe J45.909 Type 2 diabetes mellitus E11.9 Diabetes mellitus detention insulin use: without detention use
[2024-01-22 11:06] VITALS: PULSE 82
== END 2024-01-22 11:20 | disposition home or self-care (01) ==
PROVIDERS: PCP Physician Assistant Medical; Visit Provider Physician Assistant Medical
DX: M25.50 Pain in unspecified joint (principal); E11.9 Type 2 diabetes mellitus without complications; Z87.891 Personal history of nicotine dependence; G47.33 Obstructive sleep apnea (adult) (pediatric); J45.909 Unspecified asthma, uncomplicated

== ENCOUNTER → 2024-01-22 10:29 | Outpatient (BNVA) | payer OTHER, SELFPAY | PROVIDERS: PCP Internal Medicine; Visit Provider Physician Assistant Medical | DX: M25.50 Pain in unspecified joint (principal); M79.602 Pain in left arm; M79.601 Pain in right arm; G47.33 Obstructive sleep apnea (adult) (pediatric); J45.909 Unspecified asthma, uncomplicated; E11.9 Type 2 diabetes mellitus without complications; M10.9 Gout, unspecified; Z79.899 Other long term (current) drug therapy; Z87.891 Personal history of nicotine dependence; Z99.89 Dependence on other enabling machines and devices | CPT/HCPCS: 99212 ==

== ENCOUNTER 2024-01-28 09:21 | Outpatient (AMB) | payer OTHER, SELFPAY ==
--- NOTE | 2024-01-28 10:12 | A.OFFVIS_ITS ---
Vital Signs 01/28/24 10:13 Height 6 ft 1 in Weight 323 lb BMI 42.6 BP 120/60 Blood Pressure Location Lt brachial Position Sitting Pulse 88 Pulse Source Pulse Oximeter Pulse Oximetry (%) 98 Oxygen Delivery Method Room Air Intake Visit Reasons: dupixent teaching Intake Note: Patient comes in today for Dupixent teaching- was educated on hand washing, injection preparation, administration and proper disposal of sharps. Patient states no questions at this time. Medication Dupixent 300mg/2ml pre-filled syringe (patient's own meds) Loading dose of 600mg given by patient in 2 subcutaneous injections; #1 left upper thigh and #2 left abdomen Lot #[id number] Exp 08/25/2025. Patient is aware next injection is in 15 days. Nurse visit only. Auto Service Representative Required: No Photographer Motion Picture: Photographer Motion Picture offered & declined Accompanied by: Self / Same As Patient Allergies No Known Allergies [NO KNOWN ALLERGIES] Allergy (Unknown, Verified 01/28/24 10:17) UNKNOWN [facility] Medical History (Updated 01/22/24 @ 14:05 by JARVIS Burgos) Type 2 diabetes mellitus Joint pain Diverticulosis Renal cyst Abdominal pain Constipation by delayed colonic transit Costovertebral angle tenderness Renal calculi Morbid obesity Moderate asthma Diabetes mellitus Gout Surgical History Hx of colonoscopy History of cholecystectomy Family History Father CVD (cardiovascular disease) Hypertension Diabetes Mother Diabetes Chronic mental illness Sister Down syndrome Sister Hypertension Hypothyroid Social History Household Members: Family Housing: Apartment Do you presently have visiting nurse or other home services: No Alcohol intake: never Comment: pt sleeping Patient Tobacco Use Status: Current someday Tobacco user Tobacco use type: Cigarette Cigarettes Per Day: 10 Years Smoked: 20 e-Cigarette/Vaping Use: Never Used Second Hand Smoke Exposure: No Substance Use Type: Marijuana service: No Current occupational status: unemployed Cognitive needs: No Hearing needs: No Vision needs: No Physical Exam Vital Signs: Last Vital Signs Pulse 88 01/28/24 10:13 BP 120/60 01/28/24 10:13 Pulse Ox 98 01/28/24 10:13 Oxygen Delivery Method Room Air 01/28/24 10:13 BMI result Body Mass Index 42.6 Assessment & Plan Assessment & Plan (1) Asthma, severe: Code(s): J45.909 - Unspecified asthma, uncomplicated Category: Medical Plan Nurse visit- [facility] teaching Coding Level of Care Code Established Pt Est Pt Level 1 (25980) Patient Type Established Diagnoses Asthma, severe J45.909
[2024-01-28 10:13] VITALS: BP 120/60; PULSE 88; O2SAT 98; BMI 42.6
== END 2024-01-28 09:39 | disposition home or self-care (01) ==
PROVIDERS: PCP Physician Assistant Medical; Visit Provider Nurse Practitioner Family
DX: J45.909 Unspecified asthma, uncomplicated (principal)

== ENCOUNTER → 2024-01-28 09:21 | Outpatient (BNVA) | payer OTHER, SELFPAY | PROVIDERS: PCP Physician Assistant Medical; Visit Provider Nurse Practitioner Family | DX: J45.909 Unspecified asthma, uncomplicated (principal) | CPT/HCPCS: 99211 ==

== ENCOUNTER 2024-01-31 07:13 | Outpatient (REF) | payer OTHER, SELFPAY ==
[2024-01-31 08:05] LABS: Estimated Average Glucose 146 mg/dL; Hemoglobin A1c % 6.7 % (<6.0)
[2024-01-31 08:09] LABS: Alanine Aminotransferase 40 U/L (0-40); Albumin Level 4.1 g/dL (3.5-5.0); Alkaline Phosphatase 88 U/L (39-117); Anion Gap 12 (12-20); Aspartate Amino Transferase 40 U/L (5-37); Bilirubin Total 0.4 mg/dL (0.0-1.0); Blood Urea Nitrogen 17 mg/dL (9-16); Calcium 9.5 mg/dL (8.4-10.2); Carbon Dioxide 25 mmol/L (22-29); Chloride 109 mmol/L (96-108); Cholesterol 173 mg/dL (<200); Estimated Glomerular Filt Rate > 60; Glucose Random 68 mg/dL (60-115); HDL Cholesterol 28 mg/dL (>40); LDL Cholesterol Calculated 117 mg/dL (<100); Potassium 3.7 mmol/L (3.3-5.1); Sodium 142 mmol/L (135-145); Total Protein 7.6 g/dL (6.5-8.0); Triglycerides 141 mg/dL (<150)
[2024-01-31 08:20] LABS: Creatinine Urine 204.81 mg/dL; Microalbum/Creatinine Ratio Ur 6.3 ug/mg cr (<30)
[2024-01-31 08:23] LABS: Prostate Specific Antigen 0.31 ng/mL (<0.05-4.0)
[2024-01-31 08:28] LABS: TSH reflex Free T4 2.28 uIU/mL (0.32-4.0)
[2024-02-02 22:23] LABS: Lyme Abs Screen <0.90 index
== END 2024-01-31 07:14 | disposition home or self-care (01) ==
LOC: HO.LAB 07:13
PROVIDERS: PCP Physician Assistant Medical; Visit Provider Physician Assistant Medical
DX: E78.5 Hyperlipidemia, unspecified (principal); E11.65 Type 2 diabetes mellitus with hyperglycemia; E66.01 Morbid (severe) obesity due to excess calories; Z12.5 Encounter for screening for malignant neoplasm of prostate; M25.50 Pain in unspecified joint
CPT/HCPCS: 36415; 80053; 80061; 82043; 82570; 83036; 84153; 84443; 86617; 86618

== ENCOUNTER 2024-04-05 10:52 | Outpatient (REF) | payer OTHER, SELFPAY | END 2024-04-05 10:53 | disposition home or self-care (01) | LOC: HO.CT 10:52 | PROVIDERS: PCP Physician Assistant Medical; Visit Provider Nurse Practitioner Family | DX: R91.8 Other nonspecific abnormal finding of lung field (principal); Z87.891 Personal history of nicotine dependence | CPT/HCPCS: 71250 ==

== ENCOUNTER → 2024-04-05 10:53 | Outpatient (BNV) | payer OTHER, SELFPAY | PROVIDERS: PCP Physician Assistant Medical; Visit Provider Radiology Diagnostic Radiology | DX: J47.9 Bronchiectasis, uncomplicated (principal); R91.1 Solitary pulmonary nodule | CPT/HCPCS: 71250 ==

== ENCOUNTER 2024-04-09 15:16 | Outpatient (AMB) | payer OTHER, SELFPAY ==
--- NOTE | 2024-04-09 15:17 | MHC.OFFVIS ---
Vital Signs 04/09/24 15:18 Height 6 ft 1 in Weight 331 lb 6 oz BMI 43.7 BP 134/68 Blood Pressure Location Lt brachial Position Sitting Pulse 80 Pulse Source Pulse Oximeter Pulse Oximetry (%) 96 Oxygen Delivery Method Room Air Intake Visit Reasons: dyspnea Allergies No Known Allergies [NO KNOWN ALLERGIES] Allergy (Unknown, Verified 04/09/24 15:21) UNKNOWN HPI HPI dyspnea: Details: Aquilino is a pleasant 53 year old male, current 1ppd smoker with 20 pack year history, with underlying severe asthma h/o intubation, DMII and ANGEL on CPAP through [facility]. He has failed Advair, Breo and Incruse due to suboptimal repsonse. He was moderately controlled on Trelegy and albuterol MDI, continued to report dyspnea, wheezing and chest tightness. Therefore he was started on Dupixent and has had a noticeable improvement in symptoms. He no longer feels dyspnea, chest tightness or wheezing. He has not required albuterol MDI or nebulizer. He denies any visits to urgent care or hospitalizations since the last visit. He does note over the last two days a productive cough with green sputum. Denies fevers or chills. [facility] Medical History (Updated 02/03/24 @ 09:36 by JARVIS Burgos) Hepatic steatosis Type 2 diabetes mellitus Joint pain Diverticulosis Renal cyst Abdominal pain Constipation by delayed colonic transit Costovertebral angle tenderness Renal calculi Morbid obesity Moderate asthma Diabetes mellitus Gout Surgical History Hx of colonoscopy History of cholecystectomy Family History Father CVD (cardiovascular disease) Hypertension Diabetes Mother Diabetes Chronic mental illness Sister Down syndrome Sister Hypertension Hypothyroid Social History Household Members: Family Housing: Apartment Do you presently have visiting nurse or other home services: No Alcohol intake: never Comment: pt sleeping Patient Tobacco Use Status: Current someday Tobacco user Tobacco use type: Cigarette Cigarettes Per Day: 10 Years Smoked: 20 e-Cigarette/Vaping Use: Never Used Second Hand Smoke Exposure: No Substance Use Type: Marijuana service: No Current occupational status: unemployed Cognitive needs: No Hearing needs: No Vision needs: No Review of Systems Const Denies chills, Denies excessive sweating, Denies fever(s), Denies headache(s) and Denies night sweats Eyes Denies dry eyes, Denies irritation and Denies itchy eyes ENT Reports Normal hearing present, Denies headache(s), Denies nasal congestion, Denies nasal discharge, Denies post nasal drip and Denies sore throat Card Denies chest pain, Denies chest pain at rest, Denies chest pain with activity, Denies claudication, Denies leg edema, Denies dyspnea, Denies dyspnea on exertion, Denies orthopnea and Denies paroxysmal nocturnal dyspnea Resp Denies excessive phlegm production, Denies pain on inspiration, Denies pain with cough, Denies dyspnea, Denies dyspnea on exertion, Denies stridor and Denies wheezing Musc Denies myalgias Neuro Reports Normal hearing present and Denies headache(s) Endo Denies excessive sweating Rafael/Lymph Denies lymphadenopathy Aller/Immun Denies itchy eyes, Denies seasonal rhinorrhea and Denies wheezing Physical Exam Vital Signs: Last Vital Signs Pulse 80 04/09/24 15:18 BP 134/68 04/09/24 15:18 Pulse Ox 96 04/09/24 15:18 Oxygen Delivery Method Room Air 04/09/24 15:18 BMI result Body Mass Index 43.7 Const General: cooperative, healthy appearing, comfortable, no acute distress, well developed and alert Nutritional Appearance: obese Orientation/consciousness: patient oriented x3 Limitations: no limitations HEENT Head: Yes normal to inspection, Yes normocephalic and Yes atraumatic Ears: hearing grossly normal bilaterally and external ears normal Eyes General: appearance normal, both eyes and all related structures Eyelids: Yes eyelids normal Sclerae: sclerae normal EOM: EOMs intact bilaterally Neck Neck: Yes normal visual inspection and Yes no lymphadenopathy Lymphatic: no lymphadenopathy noted Chest Chest palpation & inspection: normal inspection of the chest Resp Effort & Inspection: normal respiratory effort, able to speak in complete sentences, no audible wheezes, no cough, no stridor, not tachypneic, no tripod positioning and no use of accessory muscles Auscultation: diminished lung sounds Cardio Jugular venous distension: no JVD Rate: regular rate Rhythm: regular rhythm Skin Other: warm, dry General skin exam: no rashes or lesions noted Neuro General: patient oriented x3 Cranial nerves: Yes Normal hearing present Cognition (Neuro): normal cognition Gait exam (Neuro): Normal gait present Extrem General: Yes normal to inspection, Yes capillary refill normal, Yes no clubbing, cyanosis or edema and Yes no pedal edema Psych Appearance: grossly normal and well kempt Speech and movement: Normal speech and movement present and Clear speech present Affect: normal affect Attitude: cooperative Thought process: Normal thought process present Thought content: Normal thought content present Insight: Good insight present (Psych) Judgement: Good judgement present (Psych) Assessment & Plan Assessment & Plan (1) Asthma, severe: Code(s): J45.909 - Unspecified asthma, uncomplicated Category: Medical (2) ANGEL (obstructive sleep apnea): Code(s): G47.33 - Obstructive sleep apnea (adult) (pediatric) Category: Medical (3) Morbid obesity: Code(s): E66.01 - Morbid (severe) obesity due to excess calories Category: Medical (4) Personal history of tobacco use: Code(s): Z87.891 - Personal history of nicotine dependence Category: Social Hx (5) Multiple pulmonary nodules: Code(s): R91.8 - Other nonspecific abnormal finding of lung field Category: Medical (6) Environmental allergies: Code(s): Z91.09 - Other allergy status, other than to drugs and biological substances Category: Medical Plan Aquilino reports significant improvements on Dupixent Trelegy and albuterol MDI/neb. He does present with bronchitic symptoms for the last two days will treat with a zpak. He is aware to call if symptoms do not improve. Smoking cessation reviewed and patient working towards quitting. Not interested in medications to assist at this time. All questions were answered and patient is in agreement of plan. Will follow up in 3 months or sooner if needed. Medications: New azithromycin For 250 mg dose pack: take 500 mg today (day 1), then 250 mg for 4 days (days 2-5) PO 6 tabs 0RF Coding Level of Care Code Est Pt Level 4 (63932) Diagnoses Asthma, severe J45.909 ANGEL (obstructive sleep apnea) G47.33 Morbid obesity E66.01 Personal history of tobacco use Z87.891 Multiple pulmonary nodules R91.8 Environmental allergies Z91.09
[2024-04-09 15:18] VITALS: BP 134/68; PULSE 80; O2SAT 96; BMI 43.7
== END 2024-04-09 16:00 | disposition home or self-care (01) ==
PROVIDERS: PCP Internal Medicine; Visit Provider Nurse Practitioner Family
DX: J45.909 Unspecified asthma, uncomplicated (principal); G47.33 Obstructive sleep apnea (adult) (pediatric); E66.01 Morbid (severe) obesity due to excess calories; Z87.891 Personal history of nicotine dependence; R91.8 Other nonspecific abnormal finding of lung field; Z91.09 Other allergy status, other than to drugs and biological substances
CPT/HCPCS: 99214

== ENCOUNTER → 2024-04-09 15:16 | Outpatient (BNVA) | payer OTHER, SELFPAY | PROVIDERS: PCP Internal Medicine; Visit Provider Nurse Practitioner Family | DX: J45.909 Unspecified asthma, uncomplicated (principal); R91.8 Other nonspecific abnormal finding of lung field; Z91.09 Other allergy status, other than to drugs and biological substances; E66.01 Morbid (severe) obesity due to excess calories; G47.33 Obstructive sleep apnea (adult) (pediatric); Z87.891 Personal history of nicotine dependence; Z68.41 Body mass index [BMI] 40.0-44.9, adult | CPT/HCPCS: 99212 ==

== ENCOUNTER 2024-07-07 15:41 | Outpatient (AMB) | payer OTHER, SELFPAY ==
--- NOTE | 2024-07-07 15:43 | MHC.OFFVIS ---
Vital Signs 07/07/24 15:47 Height 6 ft 1 in Weight 331 lb BMI 43.7 BP 134/66 Blood Pressure Location Lt brachial Position Sitting Pulse 84 Pulse Source Pulse Oximeter Pulse Oximetry (%) 95 Oxygen Delivery Method Room Air Intake Visit Reasons: dyspnea Allergies No Known Allergies [NO KNOWN ALLERGIES] Allergy (Unknown, Verified 07/07/24 15:48) UNKNOWN Medication List - Last Reconciled 07/07/24 by Mabel Don LPN albuterol sulfate 90 mcg/actuation (Ventolin HFA) 2 puffs inhalation Q6H PRN 30 days allopurinol 300 mg PO DAILY atorvastatin 10 mg PO BEDTIME azithromycin For 250 mg dose pack: take 500 mg today (day 1), then 250 mg for 4 days (days 2-5) PO bisacodyl (Dulcolax (bisacodyl)) 10 mg (2 x 5 mg) PO BEDTIME blood sugar diagnostic (FreeStyle Lite Strips) test daily blood-glucose meter (FreeStyle Lite Meter kit) test daily cholecalciferol (vitamin D3) 50 mcg PO DAILY cyclobenzaprine 10 mg PO BEDTIME 30 days diclofenac sodium 1% (Voltaren Arthritis Pain) apply 4 g to each affected area up to 4 times daily; maximum dose per joint: 16 g/day; maximum total body dose (all combined joints): 32 g/day dupilumab 300 mg (2 mL) subcut Q2W glipizide 2.5 mg (1/2 x 5 mg) PO DAILY hydrocortisone 2.5% (Proctosol HC) 1 appl [place] BID-QID PRN ipratropium-albuterol 0.5 mg-3 mg(2.5 mg base)/3 mL 3 mL inhalation Q6-8H PRN lancets (FreeStyle Lancets) test daily Trelegy Ellipta 200-62.5-25 mcg (qjxqdwskwfl-hpolwittb-yolzxfjq) 1 inh inhalation DAILY NS HPI HPI dyspnea: Details: Aquilino is a pleasant 53 year old male, current 1ppd smoker with 20 pack year history, with underlying severe asthma h/o intubation, DMII and ANGEL on CPAP through [facility]. He has failed Advair, Breo and Incruse due to suboptimal repsonse. He was moderately controlled on Trelegy and albuterol MDI, and started on Dupixent. He was doing quite well up until a 1-2 weeks ago where he began to developed worsening dyspnea, wheezing and productive cough with green sputum and chest congestion. He denies fevers, chills or sick contacts. Of note, at the last visit he reported similar symptoms, treated with a zpak and had complete resolution of symptoms. [facility] Medical History (Updated 07/09/24 @ 09:25 by Katelyn Post NP) Hepatic steatosis Type 2 diabetes mellitus Joint pain Diverticulosis Renal cyst Abdominal pain Constipation by delayed colonic transit Costovertebral angle tenderness Renal calculi Morbid obesity Moderate asthma Diabetes mellitus Gout Surgical History Hx of colonoscopy History of cholecystectomy Family History Father CVD (cardiovascular disease) Hypertension Diabetes Mother Diabetes Chronic mental illness Sister Down syndrome Sister Hypertension Hypothyroid Social History (Updated 07/07/24 @ 15:51 by Mabel Don LPN) Household Members: Family Housing: Apartment Do you presently have visiting nurse or other home services: No Alcohol intake: never Comment: pt sleeping Patient Tobacco Use Status: Current someday Tobacco user Tobacco use type: Cigarette Cigarettes Per Day: 2 Years Smoked: 20 e-Cigarette/Vaping Use: Never Used Second Hand Smoke Exposure: No Substance Use Type: Marijuana service: No Current occupational status: unemployed Cognitive needs: No Hearing needs: No Vision needs: No Review of Systems Const Denies chills, Denies excessive sweating, Denies fever(s), Denies headache(s) and Denies night sweats Eyes Denies dry eyes, Denies irritation and Denies itchy eyes ENT Reports Normal hearing present, Denies headache(s), Denies nasal congestion, Denies nasal discharge, Denies post nasal drip and Denies sore throat Card Denies chest pain, Denies chest pain at rest, Denies chest pain with activity, Denies claudication, Denies leg edema, Reports dyspnea on exertion, Denies orthopnea and Denies paroxysmal nocturnal dyspnea Resp Reports change in phlegm color, Reports cough, Denies hemoptysis, Denies excessive phlegm production, Denies pain on inspiration, Denies pain with cough, Reports dyspnea on exertion, Denies stridor and Reports wheezing Musc Denies myalgias Neuro Reports Normal hearing present and Denies headache(s) Endo Denies excessive sweating Rafael/Lymph Denies lymphadenopathy Aller/Immun Denies itchy eyes, Denies seasonal rhinorrhea and Reports wheezing Physical Exam Vital Signs: Last Vital Signs Pulse 84 07/07/24 15:47 BP 134/66 07/07/24 15:47 Pulse Ox 95 07/07/24 15:47 Oxygen Delivery Method Room Air 07/07/24 15:47 BMI result Body Mass Index 43.7 Const General: cooperative, healthy appearing, comfortable, no acute distress, well developed and alert Nutritional Appearance: obese Orientation/consciousness: patient oriented x3 Limitations: no limitations HEENT Head: Yes normal to inspection, Yes normocephalic and Yes atraumatic Ears: hearing grossly normal bilaterally and external ears normal Eyes General: appearance normal, both eyes and all related structures Eyelids: Yes eyelids normal Sclerae: sclerae normal EOM: EOMs intact bilaterally Neck Neck: Yes normal visual inspection and Yes no lymphadenopathy Lymphatic: no lymphadenopathy noted Chest Chest palpation & inspection: normal inspection of the chest Resp Effort & Inspection: normal respiratory effort, able to speak in complete sentences, no audible wheezes, no cough, no stridor, not tachypneic, no tripod positioning and no use of accessory muscles Auscultation: rhonchi, wheezes and diminished lung sounds Cardio Jugular venous distension: no JVD Rate: regular rate Rhythm: regular rhythm Skin Other: warm, dry General skin exam: no rashes or lesions noted Neuro General: patient oriented x3 Cranial nerves: Yes Normal hearing present Cognition (Neuro): normal cognition Gait exam (Neuro): Normal gait present Extrem General: Yes normal to inspection, Yes capillary refill normal, Yes no clubbing, cyanosis or edema and Yes no pedal edema Psych Appearance: grossly normal and well kempt Speech and movement: Normal speech and movement present and Clear speech present Affect: normal affect Attitude: cooperative Thought process: Normal thought process present Thought content: Normal thought content present Insight: Good insight present (Psych) Judgement: Good judgement present (Psych) Assessment & Plan Assessment & Plan (1) Asthma, severe: Code(s): J45.909 - Unspecified asthma, uncomplicated Category: Medical (2) ANGEL (obstructive sleep apnea): Code(s): G47.33 - Obstructive sleep apnea (adult) (pediatric) Category: Medical (3) Morbid obesity: Code(s): E66.01 - Morbid (severe) obesity due to excess calories Category: Medical (4) Personal history of tobacco use: Code(s): Z87.891 - Personal history of nicotine dependence Category: Social Hx (5) Multiple pulmonary nodules: Code(s): R91.8 - Other nonspecific abnormal finding of lung field Category: Medical (6) Environmental allergies: Code(s): Z91.09 - Other allergy status, other than to drugs and biological substances Category: Medical (7) Bronchiectasis: Code(s): J47.9 - Bronchiectasis, uncomplicated Category: Medical Plan Will treat bronchitic symptoms with Augmentin and prednisone. Will also send in flutter valve to improve mucous clearance to be used afer nebyulized therapy. He is aware to call if symptoms do not improve. Smoking cessation reviewed and unfortunately patient is back up to 1 ppd which he attributes to stress. He is working towards quitting. Not interested in medications to assist at this time. All questions were answered and patient is in agreement of plan. Will follow up in 4-6 weeks or sooner if needed. Medications: New amoxicillin-pot clavulanate 875-125 mg 1 tab PO Q12H 20 tabs 0RF prednisone see taper instructions; 40 mg Daily x3 days, 30 mg daily x3 days, 20 mg daily x3 days, 10 mg daily x3 days 10 mg PO DIRECTED 30 tabs 0RF Coding Level of Care Code Est Pt Level 4 (96994) Diagnoses Asthma, severe J45.909 ANGEL (obstructive sleep apnea) G47.33 Morbid obesity E66.01 Personal history of tobacco use Z87.891 Multiple pulmonary nodules R91.8 Environmental allergies Z91.09 Bronchiectasis J47.9
--- NOTE | 2024-07-07 15:43 | MHC.OFFVIS ---
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 offered & declined Accompanied by: Self / Same As Patient Allergies No Known Allergies [NO KNOWN ALLERGIES] Allergy (Unknown, Verified 07/07/24 15:48) UNKNOWN Medication List - Last Reconciled 07/07/24 by Mabel Don LPN albuterol sulfate 90 mcg/actuation (Ventolin HFA) 2 puffs inhalation Q6H PRN 30 days allopurinol 300 mg PO DAILY atorvastatin 10 mg PO BEDTIME azithromycin For 250 mg dose pack: take 500 mg today (day 1), then 250 mg for 4 days (days 2-5) PO bisacodyl (Dulcolax (bisacodyl)) 10 mg (2 x 5 mg) PO BEDTIME blood sugar diagnostic (FreeStyle Lite Strips) test daily blood-glucose meter (FreeStyle Lite Meter kit) test daily cholecalciferol (vitamin D3) 50 mcg PO DAILY cyclobenzaprine 10 mg PO BEDTIME 30 days diclofenac sodium 1% (Voltaren Arthritis Pain) apply 4 g to each affected area up to 4 times daily; maximum dose per joint: 16 g/day; maximum total body dose (all combined joints): 32 g/day dupilumab 300 mg (2 mL) subcut Q2W glipizide 2.5 mg (1/2 x 5 mg) PO DAILY hydrocortisone 2.5% (Proctosol HC) 1 appl MO BID-QID PRN ipratropium-albuterol 0.5 mg-3 mg(2.5 mg base)/3 mL 3 mL inhalation Q6-8H PRN lancets (FreeStyle Lancets) test daily Trelegy Ellipta 200-62.5-25 mcg (ijobhpeteac-iltthnizp-qomxpfnd) 1 inh inhalation DAILY NS PFSH Medical History (Updated 02/03/24 @ 09:36 by JARVIS Burgos) Hepatic steatosis Type 2 diabetes mellitus Joint pain Diverticulosis Renal cyst Abdominal pain Constipation by delayed colonic transit Costovertebral angle tenderness Renal calculi Morbid obesity Moderate asthma Diabetes mellitus Gout Surgical History Hx of colonoscopy History of cholecystectomy Family History Father CVD (cardiovascular disease) Hypertension Diabetes Mother Diabetes Chronic mental illness Sister Down syndrome Sister Hypertension Hypothyroid Social History (Updated 07/07/24 @ 15:51 by Mabel Don LPN) Household Members: Family Housing: Apartment Do you presently have visiting nurse or other home services: No Alcohol intake: never Comment: pt sleeping Patient Tobacco Use Status: Current someday Tobacco user Tobacco use type: Cigarette Cigarettes Per Day: 2 Years Smoked: 20 e-Cigarette/Vaping Use: Never Used Second Hand Smoke Exposure: No Substance Use Type: Marijuana service: No Current occupational status: unemployed Cognitive needs: No Hearing needs: No Vision needs: No Coding
[2024-07-07 15:47] VITALS: BP 134/66; PULSE 84; O2SAT 95; BMI 43.7
== END 2024-07-07 16:05 | disposition home or self-care (01) ==
LOC: HO.HPSW 15:42
PROVIDERS: PCP Internal Medicine; Visit Provider Nurse Practitioner Family
DX: J45.909 Unspecified asthma, uncomplicated (principal); G47.33 Obstructive sleep apnea (adult) (pediatric); E66.01 Morbid (severe) obesity due to excess calories; Z87.891 Personal history of nicotine dependence; R91.8 Other nonspecific abnormal finding of lung field; Z91.09 Other allergy status, other than to drugs and biological substances; J47.9 Bronchiectasis, uncomplicated
CPT/HCPCS: 99214

== ENCOUNTER → 2024-07-07 15:41 | Outpatient (BNVA) | payer OTHER, SELFPAY | PROVIDERS: PCP Internal Medicine; Visit Provider Nurse Practitioner Family | DX: J45.909 Unspecified asthma, uncomplicated (principal); J47.9 Bronchiectasis, uncomplicated; R91.8 Other nonspecific abnormal finding of lung field; G47.33 Obstructive sleep apnea (adult) (pediatric); E66.01 Morbid (severe) obesity due to excess calories; Z91.09 Other allergy status, other than to drugs and biological substances; Z87.891 Personal history of nicotine dependence | CPT/HCPCS: 99212 ==

== ENCOUNTER 2024-07-14 08:13 | Outpatient (REF) | payer OTHER, SELFPAY ==
[2024-07-14 10:40] LABS: Estimated Average Glucose 166 mg/dL; Hemoglobin A1c % 7.4 % (<6.0); Total Hemoglobin (HGBA1C) 3300.3096 umol/L
[2024-07-14 11:05] LABS: Alanine Aminotransferase 37 U/L (0-40); Albumin Level 3.9 g/dL (3.5-5.0); Alkaline Phosphatase 108 U/L (39-117); Anion Gap 13 (12-20); Aspartate Amino Transferase 31 U/L (5-37); Bilirubin Total 0.2 mg/dL (0.0-1.0); Blood Urea Nitrogen 18 mg/dL (9-16); Calcium 9.1 mg/dL (8.4-10.2); Carbon Dioxide 25 mmol/L (22-29); Chloride 105 mmol/L (96-108); Cholesterol 174 mg/dL (<200); Estimated Glomerular Filt Rate > 60; Glucose Random 188 mg/dL (60-115); HDL Cholesterol 43 mg/dL (>40); LDL Cholesterol Calculated 73 mg/dL (<100); Potassium 3.7 mmol/L (3.3-5.1); Sodium 139 mmol/L (135-145); Total Protein 7.5 g/dL (6.5-8.0); Triglycerides 290 mg/dL (<150)
== END 2024-07-14 08:14 | disposition home or self-care (01) ==
LOC: HO.10HDL 08:13
PROVIDERS: Visit Provider Physician Assistant Medical
DX: K59.01 Slow transit constipation (principal); K57.90 Diverticulosis of intestine, part unspecified, without perforation or abscess without bleeding; Z12.11 Encounter for screening for malignant neoplasm of colon; E78.5 Hyperlipidemia, unspecified; K76.0 Fatty (change of) liver, not elsewhere classified; E11.9 Type 2 diabetes mellitus without complications
CPT/HCPCS: 36415; 80053; 80061; 83036; 99212

== ENCOUNTER 2024-07-14 10:28 | Outpatient (AMB) | payer OTHER, SELFPAY ==
--- NOTE | 2024-07-14 10:31 | MHC.OFFVIS ---
Vital Signs 07/14/24 11:02 Height 6 ft 1 in Weight 333 lb 5.423 oz BMI 44.0 BP 124/62 Blood Pressure Location Rt brachial Position Sitting Pulse 82 Pulse Source Pulse Oximeter Pulse Oximetry (%) 93 Oxygen Delivery Method Room Air Intake Visit Reasons: 1 yr follow up repeat colo Intake Note: ESTABLISHED PATIENT for colo repeat x1 year. Chief Complaint; Pt denies any GI concerns at this time. Sx well controlled with current meds. Pt does need refill of dulcolax. Pt has questions regarding at home (cologuard) test. [employer] Director Required: No Accompanied by: Self / Same As Patient Allergies No Known Allergies [NO KNOWN ALLERGIES] Allergy (Unknown, Verified 07/14/24 10:31) UNKNOWN HPI HPI 1 yr follow up repeat colo: Details: LAST VISIT: 07/15/2023 Diverticulosis Constipation Status post colonoscopy Plan Patient will continue taking Dulcolax daily. Increase fluid intake and activity to promote better bowel motility. Patient was encouraged to eat smaller meals. Weight loss encouraged. High-fiber diet recommended, patient can take fiber supplements as well as probiotics.. No polyps found, moderate diverticulosis of sigmoid colon and internal hemorrhoids without complications found. Patient had suboptimal prep and will need to repeat colonoscopy in 1-2 years. Patient will follow-up in the office in 1 year, sooner if needed. He is agreeable to this plan and verbalizes understanding of instructions he was given the opportunity to ask questions and all questions answered. ? Thank you for allowing me to participate in his care Medications Discontinued fluticasone furoate-vilanterol 200-25 mcg/dose (Breo Ellipta) Discontinued Reason: Patient no longer taking 1 inh inhalation DAILY 60 ea 3RF umeclidinium 62.5 mcg/actuation (Incruse Ellipta) Discontinued Reason: Patient Completed Course 1 inh inhalation DAILY 30 ea 3RF TODAY'S VISIT Patient is here today for follow-up and discussed going for colonoscopy. Patient had colonoscopy 07/01/2023 and had suboptimal prep, recommendation was made for patient to return for colorectal screening in 1-2 years. Patient reports that he has been doing well moving his bowels without any issues. Only taking Dulcolax as needed. Patient denies any issues with anesthesia in the past. No history of sleep apnea. Not on any anticoagulation medication. Patient denies any melena, hematochezia, unintentional weight loss or ribbon like stools. Patient denies any dyspepsia, dysphagia or odynophagia. Patient reports that he is trying to change his diet to lose weight and to stay healthier. [facility] Medical History Hepatic steatosis Type 2 diabetes mellitus Joint pain Diverticulosis Renal cyst Abdominal pain Constipation by delayed colonic transit Costovertebral angle tenderness Renal calculi Morbid obesity Moderate asthma Diabetes mellitus Gout Surgical History Hx of colonoscopy History of cholecystectomy Family History Father CVD (cardiovascular disease) Hypertension Diabetes Mother Diabetes Chronic mental illness Sister Down syndrome Sister Hypertension Hypothyroid Social History Household Members: Family Housing: Apartment Do you presently have visiting nurse or other home services: No Alcohol intake: never Comment: pt sleeping Patient Tobacco Use Status: Current someday Tobacco user Tobacco use type: Cigarette Cigarettes Per Day: 2 Years Smoked: 20 e-Cigarette/Vaping Use: Never Used Second Hand Smoke Exposure: No Substance Use Type: Marijuana service: No Current occupational status: unemployed Cognitive needs: No Hearing needs: No Vision needs: No Review of Systems Const Denies weight gain and Denies weight loss ENT Reports no additional complaints, Denies dysphagia and Denies odynophagia Card Reports no additional complaints Resp Reports no additional complaints GI Denies abdominal pain, Denies belching, Denies melena, Denies bloating, Denies change in bowel habits, Denies dysphagia, Denies excessive flatus, Denies dyspepsia, Denies heartburn, Denies diarrhea, Denies loose stools, Denies nausea, Denies odynophagia and Denies vomiting Reports no additional complaints Musc Reports no additional complaints Neuro Reports no additional complaints Psych Reports no additional complaints Endo Reports no additional complaints Physical Exam Vital Signs: Last Vital Signs Pulse 82 07/14/24 11:02 BP 124/62 07/14/24 11:02 Pulse Ox 93 07/14/24 11:02 Oxygen Delivery Method Room Air 07/14/24 11:02 BMI result Body Mass Index 44.0 Const General: no acute distress Nutritional Appearance: obese Orientation/consciousness: patient oriented x3 Resp Effort & Inspection: normal respiratory effort, able to speak in complete sentences, no tracheal deviation and symmetric chest movement Auscultation: clear to auscultation bilaterally Cardio Rate: regular rate GI Inspection: Yes obesity Palpation (GI): Soft to palpation, not firm, nontender and No hepatosplenomegaly present Auscultation: normal bowel sounds General: Yes no CVA tenderness Back/Spine/Pelvis Back: no CVA tenderness Skin General skin exam: elasticity normal, turgor normal and dry skin Neuro General: patient oriented x3 Psych Appearance: grossly normal Mental Status: mental status grossly normal Assessment & Plan Assessment & Plan (1) Diverticulosis: Code(s): K57.90 - Diverticulosis of intestine, part unspecified, without perforation or abscess without bleeding Category: Medical (2) Constipation: Code(s): K59.00 - Constipation, unspecified Qualifiers: Constipation type: slow transit constipation Qualified Code(s): K59.01 - Slow transit constipation (3) Screen for colon cancer: Code(s): Z12.11 - Encounter for screening for malignant neoplasm of colon Category: Medical Plan Patient was encouraged to take Dulcolax daily to make sure that he moves his bowels. We have discussed that the week of that procedure he should definitely take Dulcolax every day. Clear liquid diet day before procedure. Stressed the importance of good bowel prep to ensure that the colonoscopy is performed and able to finish the procedure and see the entire colon. No issues with anesthesia in the past. No history of sleep apnea. Not on any anticoagulation medication. Patient will be seen after the procedure, sooner on as needed basis. Message sent to surgical assist stable procedure for patient. Patient is agreeable to current plan of care and verbalizes understanding of instructions. He was given the opportunity to ask questions and all questions answered. Thank you for allowing me to participate in his care Medications: New polyethylene glycol 3350 (Miralax) As directed by gastroenterology department at [facility] 238 grams PO ONCE 238 grams 0RF Z12.11 - Encounter for screening for malignant neoplasm of colon Refilled bisacodyl (Dulcolax (bisacodyl)) 10 mg (2 x 5 mg) PO BEDTIME 180 tabs 4RF Coding Level of Care Code Est Pt Level 3 (34456) Diagnoses Diverticulosis K57.90 Slow transit constipation K59.01 Constipation type: slow transit constipation Screen for colon cancer Z12.11 Time Spent (min) 30 Comment 20 minutes spent with patient and additional 10 minutes spent reviewing his records
[2024-07-14 11:02] VITALS: BP 124/62; PULSE 82; O2SAT 93; BMI 44.0
== END 2024-07-14 11:41 | disposition home or self-care (01) ==
LOC: HO.HGI 10:28
PROVIDERS: PCP Internal Medicine; Visit Provider Nurse Practitioner Family
DX: Z01.818 Encounter for other preprocedural examination (principal); Z12.11 Encounter for screening for malignant neoplasm of colon; K57.90 Diverticulosis of intestine, part unspecified, without perforation or abscess without bleeding; K59.01 Slow transit constipation
CPT/HCPCS: 99212

== ENCOUNTER 2024-07-15 16:14 | Outpatient (AMB) | payer OTHER, SELFPAY ==
--- NOTE | 2024-07-15 16:18 | MHC.PC.OV ---
Vital Signs 07/15/24 16:23 Height 6 ft 1 in Weight 332 lb 2 oz BMI 43.8 BP 116/64 Blood Pressure Location Lt brachial Position Sitting Respiration 16 Pulse 93 Pulse Source Pulse Oximeter Pulse Oximetry (%) 94 Oxygen Delivery Method Room Air Intake Visit Reasons: PE Intake Note: Physical. Had blood work done yesterday. [place] Aide Required: No Allergies No Known Allergies [NO KNOWN ALLERGIES] Allergy (Unknown, Verified 07/15/24 16:21) UNKNOWN Tobacco use date assessed: 07/15/24 Dental Screening Dental Screen Date: 01/22/24 HPI HPI Comments History of Present Illness Details This is a 53-year-old male with a past medical history of obesity, dish, multiple pulmonary nodules, severe asthma, pancreatitis, hyperlipidemia, obstructive sleep apnea, gout and type 2 diabetes presenting for a physical exam. Severe asthma-followed by [facility] pulmonology. Currently finishing up a course of prednisone and antibiotics, and he is feeling a lot better. He usually smokes when he is triggered by stress. He changed jobs so he has a lot more security now with his position, and this makes his life a lot less stressful. Type 2 diabetes-compliant with glipizide 2.5 mg daily. His hemoglobin A1c is up to 7.4%. He was on Farxiga which was discontinued due to side effects. Metformin caused diarrhea and exacerbated bleeding from hemorrhoids. GLP 1 not indicated due to history of pancreatitis. Obstructive sleep apnea-compliant with CPAP. Gout-on allopurinol. Denies symptoms. Hyperlipidemia-no side effects on atorvastatin. LDL cholesterol is less than 100. HDL increase. His triglycerides are elevated at 290. We discussed decreasing carbohydrates and sugar and avoiding alcohol. He had a recent echocardiogram which was normal. He denies chest pain or shortness of breath. He attends dental visits regularly. [facility]. He will schedule a visit. PCV-16 January 2024. Declined flu vaccine. Received COVID-19 and 2 boosters. Recommended Shingrix vaccine and Tdap vaccine. Patient says he will get these at the pharmacy. He saw GI yesterday, and a colonoscopy is being scheduled. Patient has mild anemia. History of constipation. ROS: Constitutional: No unexplained weight loss, fever, chills, fatigue or night sweats. Eyes: No vision changes, blurry vision, double vision, eye pain, eye redness, eye discharge. ENT: No hearing loss, sneezing, congestion, runny nose or sore throat. Respiratory: No hemoptysis, shortness of breath or wheezing. Patient endorses cough. Cardiovascular: No chest pain, chest pressure or chest discomfort. No palpitations or pedal edema. Gastrointestinal: No anorexia, nausea, vomiting or diarrhea. No abdominal pain or blood in stool. +constipation. Genitourinary: No dysuria, hematuria, urinary frequency. Neurologic: No headache, dizziness, syncope, unilateral weakness, ataxia, numbness or tingling in the extremities. Musculoskeletal: No muscle pain, back pain, joint pain or swelling. Hematologic/Lymphatics: No bleeding or bruising. No painful lymph nodes. Skin: No rash. +skin tags. Endocrine: No cold or heat intolerance. No polyuria or polydipsia. Psychiatric: No depression or anxiety. No SI/HI. Physical exam: Constitutional: Alert, in no distress. Head: Normocephalic. Eyes: Pupils are equal, round and reactive to light. Extraocular muscles intact. Ear, Nose and Throat: Canals clear. TMs normal. Normal nasal mucosa. No nasal discharge. No oral lesions. Neck: Supple, Full range of motion. No lymphadenopathy. No palpable thyroid masses. Respiratory: Clear to auscultation. Cardiovascular: S1 S2 regular. No murmurs. Gastrointestinal: Abdomen soft, non-tender, non-distended. Normal bowel sounds. No palpable masses. Genitourinary: Patient declined exam. Neurologic: No focal neurological deficits. Skin: Numerous skin tags around the neck. Multiple nevi on the upper back and chest. Musculoskeletal: No gross deformities. Normal range of motion. Extremities: Warm and well perfused. No clubbing, cyanosis or edema. Symmetric peripheral pulses. Psychiatric: Normal mood and affect [facility] Medical History (Updated 07/15/24 @ 17:07 by JARVIS Burgos) Routine physical examination Mild anemia Hepatic steatosis Type 2 diabetes mellitus Joint pain Diverticulosis Renal cyst Abdominal pain Constipation by delayed colonic transit Costovertebral angle tenderness Renal calculi Morbid obesity Moderate asthma Diabetes mellitus Gout Surgical History Hx of colonoscopy History of cholecystectomy Family History Father CVD (cardiovascular disease) Hypertension Diabetes Mother Diabetes Chronic mental illness Sister Down syndrome Sister Hypertension Hypothyroid Social History (Updated 07/15/24 @ 16:22 by Vianey Matthews CMA) Household Members: Family Housing: Apartment Do you presently have visiting nurse or other home services: No Alcohol intake: former Comment: Hasnt drank in 5 years Patient Tobacco Use Status: Current someday Tobacco user Tobacco use type: Cigarette Cigarettes Per Day: 2 Years Smoked: 20 e-Cigarette/Vaping Use: Never Used Second Hand Smoke Exposure: No Substance Use Type: Marijuana service: No Current occupational status: unemployed Cognitive needs: No Hearing needs: No Vision needs: No Questionnaire Thrive Questionnaire Date Thrive assessed: 09/04/22 I am a: Patient What is your living situation today?: I have a steady place to live Within the past 12 months, did the food you bought not last and you didn't have the money to get more?: Never true Within the past 12 months, did you worry whether your food would run out before you got money to buy more?: Never true Do you have trouble paying for medicines?: No Do you have trouble getting transportation to medical appointments?: No Do you have trouble paying your heating and electricity bill?: No Do you have trouble taking care of your child, family member or friend?: No Do you have trouble with day-to-day activities such as bathing, preparing meals, shopping, managing finances, etc.?: No Are you currently unemployed and looking for a job?: I choose not to answer this question Are you interested in more education?: No Please select the resources that you would like help with: None Currently or been in a relationship where the following occur: No concerns reported THRIVE Score: 0 AUDIT C Alcohol Use Questionnaire (AUDIT-C) 1. How often do you have a drink containing alcohol?: Never Total Score: 0 PARKER-7 AMB Questionnaire PARKER-7 Date PARKER - 7 assessed: 09/04/22 Feeling nervous, anxious, or on edge: 0 = Not at all Not being able to stop or control worryin = More than half the days Worrying too much about different things: 2 = More than half the days Trouble relaxin = More than half the days Being so restless that it is hard to sit still: 0 = Not at all Becoming easily annoyed or irritable: 3 = Nearly every day Feeling afraid as if something awful might happen: 2 = More than half the days Total PARKER-7 score (0-4 normal; 5-9 mild; 10-14 moderate; 15-21 severe): 11 Source: Developed by Drs. Jovon López, Haily Nunez, Anthony Brown and colleagues, with an educational froilan from [employer]. Physical exam (Primary Care) Vital Signs: Last Vital Signs Pulse 93 07/15/24 16:23 Resp 16 07/15/24 16:23 BP 116/64 07/15/24 16:23 Pulse Ox 94 07/15/24 16:23 Oxygen Delivery Method Room Air 07/15/24 16:23 BMI result Body Mass Index 43.8 Tobacco/Smoking Status: Tobacco use Status Tobacco use date assessed 07/15/24 07/15/24 16:26 Patient Tobacco Use Status Current someday Tobacco 07/15/24 16:22 Tobacco use type Cigarette 07/15/24 16:22 e-Cigarette/Vaping Use Never Used 07/15/24 16:22 Thrive Assessment: Date of Thrive Assessment Date Thrive assessed 09/04/22 07/15/24 16:18 Currently or been in a relationship where the following occur: No concerns reported Coding Level of Care Code Est Pt Prev Care 40-64y(20807) Diagnoses Type 2 diabetes mellitus E11.9 Diabetes mellitus longterm insulin use: without continuous churn buttermaker use Mild anemia D64.9 Asthma, severe J45.909 Hyperlipidemia E78.5 Routine physical examination Z00.00 Assessment & Plan Assessment & Plan (1) Type 2 diabetes mellitus: Code(s): E11.9 - Type 2 diabetes mellitus without complications Category: Medical Qualifiers: Diabetes mellitus continuous churn buttermaker insulin use: without longterm use Plan: We reviewed complications of uncontrolled diabetes. Recommended annual eye exam. Stop glipizide 2.5 mg and change to glipizide extended release 5 mg once daily. Patient will start checking fasting sugars with a target range of 70-130 in the morning. Unfortunately he is not a good candidate for a GLP 1 due to history of pancreatitis. Reinforce diabetic diet and lifestyle modifications. He declined referral to the dietitian and adaptive physical educator. (2) Mild anemia: Code(s): D64.9 - Anemia, unspecified Category: Medical Plan: Colonoscopy is scheduled. Repeat labs prior to next appointment and check B12 and iron. (3) Asthma, severe: Code(s): J45.909 - Unspecified asthma, uncomplicated Category: Medical Plan: Continue management per pulmonology specialists. (4) Hyperlipidemia: Code(s): E78.5 - Hyperlipidemia, unspecified Category: Medical Plan: Reviewed elevated triglycerides. Decrease carbs and sugar. Treat diabetes. Continue atorvastatin. Recheck prior to next appointment. (5) Routine physical examination: Code(s): Z00.00 - Encounter for general adult medical examination without abnormal findings Category: Medical Plan: Patient is seen today for a routine physical. As part of this visit we reviewed the following issues, which are considered and essential part of preventative health in this age group: - Testicular cancer screening, which includes self exam teaching - Screening for colon cancer - Discussed Prostate cancer screening- PSA within 1 year is normal. - Blood pressure screening - Cholesterol screening - Nutritional and exercise counseling - Counseling of injury prevention including fire prevention, smoke alarms and seat belt usage - Screening for depression - Prevention of and/or testing for infectious diseases - Education about skin cancer refer to dermatology for a skin exam - Recommendations about immunizations - Recommendation of an eye exam - Screening for substance abuse Plan Follow up in 3 months for a physical exam. Orders: Orders Vitamin B12 3 Months D64.9 - Anemia, unspecified, E11.9 - Type 2 diabetes mellitus without complications, Z91.89 - Other specified personal risk factors, not elsewhere classified Lipid Panel 3 Months D64.9 - Anemia, unspecified, E11.9 - Type 2 diabetes mellitus without complications, E78.5 - Hyperlipidemia, unspecified Hemoglobin A1c 3 Months D64.9 - Anemia, unspecified, E11.9 - Type 2 diabetes mellitus without complications Complete Blood Count Auto Diff 3 Months D64.9 - Anemia, unspecified, E11.9 - Type 2 diabetes mellitus without complications IRON PROFILE 3 Months D64.9 - Anemia, unspecified, E11.9 - Type 2 diabetes mellitus without complications Basic Metabolic Panel 3 Months D64.9 - Anemia, unspecified, E11.9 - Type 2 diabetes mellitus without complications Referrals Dermatology Referral Z12.83 - Encounter for screening for malignant neoplasm of skin Medications: New glipizide ER 5 mg PO DAILY 90 tabs 0RF Discontinued glipizide Discontinued Reason: Doctor's Order 2.5 mg (1/2 x 5 mg) PO DAILY 90 tabs 1RF E11.9 - Type 2 diabetes mellitus without complications
[2024-07-15 16:23] VITALS: BP 116/64; PULSE 93; RESP 16; O2SAT 94; BMI 43.8
== END 2024-07-15 17:01 | disposition home or self-care (01) ==
LOC: HO.HMCFM 16:15
PROVIDERS: PCP Physician Assistant Medical; Visit Provider Physician Assistant Medical
DX: E11.9 Type 2 diabetes mellitus without complications (principal); D64.9 Anemia, unspecified; J45.909 Unspecified asthma, uncomplicated; E78.5 Hyperlipidemia, unspecified; Z00.00 Encounter for general adult medical examination without abnormal findings

== ENCOUNTER → 2024-07-15 16:14 | Outpatient (BNVA) | payer OTHER, SELFPAY | PROVIDERS: PCP Physician Assistant Medical; Visit Provider Physician Assistant Medical | DX: Z00.00 Encounter for general adult medical examination without abnormal findings (principal); E66.9 Obesity, unspecified; R91.8 Other nonspecific abnormal finding of lung field; J45.909 Unspecified asthma, uncomplicated; E78.5 Hyperlipidemia, unspecified; G47.33 Obstructive sleep apnea (adult) (pediatric); E11.9 Type 2 diabetes mellitus without complications; D64.9 Anemia, unspecified | CPT/HCPCS: 99396 ==

== ENCOUNTER 2024-08-03 15:50 | Outpatient (AMB) | payer OTHER, SELFPAY ==
--- NOTE | 2024-08-03 15:51 | MHC.OFFVIS ---
Intake Visit Reasons: dyspnea Allergies No Known Allergies [NO KNOWN ALLERGIES] Allergy (Unknown, Verified 07/15/24 16:21) UNKNOWN HPI HPI dyspnea: Details: Aquilino is a pleasant 53 year old male, current 1ppd smoker with 20 pack year history, with underlying severe asthma h/o intubation, DMII and ANGEL on CPAP through [facility]. He has failed Advair, Breo and Incruse due to suboptimal repsonse. He was moderately controlled on Trelegy and albuterol MDI, and started on Dupixent. He was doing quite well up until a 1-2 weeks ago where he began to developed worsening dyspnea, wheezing and productive cough with green sputum and chest congestion. He denies fevers, chills or sick contacts. Of note, at the last visit he reported similar symptoms, treated with a zpak and had complete resolution of symptoms. [facility] Medical History (Updated 07/15/24 @ 17:07 by JARVIS Burgos) Routine physical examination Mild anemia Hepatic steatosis Type 2 diabetes mellitus Joint pain Diverticulosis Renal cyst Abdominal pain Constipation by delayed colonic transit Costovertebral angle tenderness Renal calculi Morbid obesity Moderate asthma Diabetes mellitus Gout Surgical History Hx of colonoscopy History of cholecystectomy Family History Father CVD (cardiovascular disease) Hypertension Diabetes Mother Diabetes Chronic mental illness Sister Down syndrome Sister Hypertension Hypothyroid Social History (Updated 07/15/24 @ 16:22 by Vianey Matthews CMA) Household Members: Family Housing: Apartment Do you presently have visiting nurse or other home services: No Alcohol intake: former Comment: Hasnt drank in 5 years Patient Tobacco Use Status: Current someday Tobacco user Tobacco use type: Cigarette Cigarettes Per Day: 2 Years Smoked: 20 e-Cigarette/Vaping Use: Never Used Second Hand Smoke Exposure: No Substance Use Type: Marijuana service: No Current occupational status: unemployed Cognitive needs: No Hearing needs: No Vision needs: No Assessment & Plan Assessment & Plan (1) Asthma, severe: Code(s): J45.909 - Unspecified asthma, uncomplicated Category: Medical (2) ANGEL (obstructive sleep apnea): Code(s): G47.33 - Obstructive sleep apnea (adult) (pediatric) Category: Medical (3) Morbid obesity: Code(s): E66.01 - Morbid (severe) obesity due to excess calories Category: Medical (4) Personal history of tobacco use: Code(s): Z87.891 - Personal history of nicotine dependence Category: Social Hx (5) Multiple pulmonary nodules: Code(s): R91.8 - Other nonspecific abnormal finding of lung field Category: Medical (6) Environmental allergies: Code(s): Z91.09 - Other allergy status, other than to drugs and biological substances Category: Medical (7) Bronchiectasis: Code(s): J47.9 - Bronchiectasis, uncomplicated Category: Medical Plan Will treat bronchitic symptoms with Augmentin and prednisone. Will also send in flutter valve to improve mucous clearance to be used afer nebyulized therapy. He is aware to call if symptoms do not improve. Smoking cessation reviewed and unfortunately patient is back up to 1 ppd which he attributes to stress. He is working towards quitting. Not interested in medications to assist at this time. All questions were answered and patient is in agreement of plan. Will follow up in 4-6 weeks or sooner if needed. Coding Diagnoses Asthma, severe J45.909 ANGEL (obstructive sleep apnea) G47.33 Morbid obesity E66.01 Personal history of tobacco use Z87.891 Multiple pulmonary nodules R91.8 Environmental allergies Z91.09 Bronchiectasis J47.9
--- NOTE | 2024-08-03 15:52 | A.OFFVIS_ITS ---
Vital Signs 08/03/24 15:53 Height 6 ft 1 in Weight 338 lb BMI 44.6 BP 132/70 Blood Pressure Location Rt brachial Pulse 82 Pulse Source Pulse Oximeter Pulse Oximetry (%) 94 Oxygen Delivery Method Room Air Intake Visit Reasons: dyspnea Concrete Grinder Operator Required: No Financial Processing Clerk: Financial Processing Clerk offered & declined Accompanied by: Self / Same As Patient Allergies No Known Allergies [NO KNOWN ALLERGIES] Allergy (Unknown, Verified 08/03/24 15:56) UNKNOWN Medication List - Last Reconciled 08/03/24 by Mabel Don LPN albuterol sulfate 90 mcg/actuation (Ventolin HFA) 2 puffs inhalation Q6H PRN 30 days allopurinol 300 mg PO DAILY amoxicillin-pot clavulanate 875-125 mg 1 tab PO Q12H atorvastatin 10 mg PO BEDTIME bisacodyl (Dulcolax (bisacodyl)) 10 mg (2 x 5 mg) PO BEDTIME blood sugar diagnostic (FreeStyle Lite Strips) test daily blood-glucose meter (AccelitecStyle Lite Meter kit) test daily cholecalciferol (vitamin D3) 50 mcg PO DAILY diclofenac sodium 1% (Voltaren Arthritis Pain) apply 4 g to each affected area up to 4 times daily; maximum dose per joint: 16 g/day; maximum total body dose (all combined joints): 32 g/day dupilumab 300 mg (2 mL) subcut Q2W glipizide ER 5 mg PO DAILY ipratropium-albuterol 0.5 mg-3 mg(2.5 mg base)/3 mL 3 mL inhalation Q6-8H PRN lancets (FreeStyle Lancets) test daily polyethylene glycol 3350 (Miralax) 238 grams PO ONCE Trelegy Ellipta 200-62.5-25 mcg (ppicgnwwigm-oxvepulzd-vpbujuco) 1 inh inhalation DAILY NS HPI HPI dyspnea: Details: Aquilino is a pleasant 53 year old male, current smoker with 20 pack year history, recently quit 3 weeks ago with underlying severe asthma h/o intubation, DMII and ANGEL on CPAP through [facility] of [facility]. He has failed Advair, Breo and Incruse due to suboptimal repsonse. He was moderately controlled on Trelegy and albuterol MDI, and started on Dupixent. At the last visit, was treated with Augmentin for bronchitic symptoms, however could not complete course due to GI symptoms. He continues to report worsening dyspnea, wheezing and productive cough with green sputum and chest congestion. He denies fevers, chills or sick contacts. He has been using DuoNeb BID with Acapella valve with moderate effect. He did report last month he missed a Dupixent dose, now back on q2 week schedule. Of note, patient recently saw sleep medicine and reportedly AHI 1, using CPAP therapy consistently with good effect. [facility] Medical History (Updated 07/15/24 @ 17:07 by JARVIS Burgos) Routine physical examination Mild anemia Hepatic steatosis Type 2 diabetes mellitus Joint pain Diverticulosis Renal cyst Abdominal pain Constipation by delayed colonic transit Costovertebral angle tenderness Renal calculi Morbid obesity Moderate asthma Diabetes mellitus Gout Surgical History Hx of colonoscopy History of cholecystectomy Family History Father CVD (cardiovascular disease) Hypertension Diabetes Mother Diabetes Chronic mental illness Sister Down syndrome Sister Hypertension Hypothyroid Social History (Updated 07/15/24 @ 16:22 by Vianey Matthews CMA) Household Members: Family Housing: Apartment Do you presently have visiting nurse or other home services: No Alcohol intake: former Comment: Hasnt drank in 5 years Patient Tobacco Use Status: Current someday Tobacco user Tobacco use type: Cigarette Cigarettes Per Day: 2 Years Smoked: 20 e-Cigarette/Vaping Use: Never Used Second Hand Smoke Exposure: No Substance Use Type: Marijuana service: No Current occupational status: unemployed Cognitive needs: No Hearing needs: No Vision needs: No Review of Systems Const Denies chills, Denies excessive sweating, Denies fever(s), Denies headache(s) and Denies night sweats Eyes Denies dry eyes, Denies irritation and Denies itchy eyes ENT Reports Normal hearing present, Denies headache(s), Denies nasal congestion, Denies nasal discharge, Denies post nasal drip and Denies sore throat Card Denies chest pain, Denies chest pain at rest, Denies chest pain with activity, Denies claudication, Denies leg edema, Reports dyspnea on exertion, Denies orthopnea and Denies paroxysmal nocturnal dyspnea Resp Reports change in phlegm color, Reports cough, Denies hemoptysis, Denies excessive phlegm production, Denies pain on inspiration, Denies pain with cough, Reports dyspnea on exertion, Denies stridor and Reports wheezing Musc Denies myalgias Neuro Reports Normal hearing present and Denies headache(s) Endo Denies excessive sweating Rafael/Lymph Denies lymphadenopathy Aller/Immun Denies itchy eyes, Denies seasonal rhinorrhea and Reports wheezing Physical Exam Vital Signs: Last Vital Signs Pulse 82 08/03/24 15:53 BP 132/70 08/03/24 15:53 Pulse Ox 94 08/03/24 15:53 Oxygen Delivery Method Room Air 08/03/24 15:53 BMI result Body Mass Index 44.6 Const General: cooperative, healthy appearing, comfortable, no acute distress, well developed and alert Nutritional Appearance: obese Orientation/consciousness: patient oriented x3 Limitations: no limitations HEENT Head: Yes normal to inspection, Yes normocephalic and Yes atraumatic Ears: hearing grossly normal bilaterally and external ears normal Eyes General: appearance normal, both eyes and all related structures Eyelids: Yes eyelids normal Sclerae: sclerae normal EOM: EOMs intact bilaterally Neck Neck: Yes normal visual inspection and Yes no lymphadenopathy Lymphatic: no lymphadenopathy noted Chest Chest palpation & inspection: normal inspection of the chest Resp Effort & Inspection: normal respiratory effort, able to speak in complete sentences, no audible wheezes, no cough, no stridor, not tachypneic, no tripod positioning and no use of accessory muscles Auscultation: rhonchi, wheezes and diminished lung sounds Cardio Jugular venous distension: no JVD Rate: regular rate Rhythm: regular rhythm Skin Other: warm, dry General skin exam: no rashes or lesions noted Neuro General: patient oriented x3 Cranial nerves: Yes Normal hearing present Cognition (Neuro): normal cognition Gait exam (Neuro): Normal gait present Extrem General: Yes normal to inspection, Yes capillary refill normal, Yes no clubbing, cyanosis or edema and Yes no pedal edema Psych Appearance: grossly normal and well kempt Speech and movement: Normal speech and movement present and Clear speech present Affect: normal affect Attitude: cooperative Thought process: Normal thought process present Thought content: Normal thought content present Insight: Good insight present (Psych) Judgement: Good judgement present (Psych) Assessment & Plan Assessment & Plan (1) Asthma, severe: Code(s): J45.909 - Unspecified asthma, uncomplicated Category: Medical (2) ANGEL (obstructive sleep apnea): Code(s): G47.33 - Obstructive sleep apnea (adult) (pediatric) Category: Medical (3) Morbid obesity: Code(s): E66.01 - Morbid (severe) obesity due to excess calories Category: Medical (4) Personal history of tobacco use: Code(s): Z87.891 - Personal history of nicotine dependence Category: Social Hx (5) Multiple pulmonary nodules: Code(s): R91.8 - Other nonspecific abnormal finding of lung field Category: Medical (6) Environmental allergies: Code(s): Z91.09 - Other allergy status, other than to drugs and biological substances Category: Medical (7) Bronchiectasis: Code(s): J47.9 - Bronchiectasis, uncomplicated Category: Medical Plan Will treat bronchitic symptoms with Vantin and prednisone. Reviewed importance of monitoring blood glucose with prednisone use. Encouraged use of flutter valve and DuoNeb. He is aware to call if symptoms do not improve. May consider switching Dupixent as patient with second exacerbation this year. Smoking cessation reviewed and is working towards quitting. We had long discussion regarding weight loss, diet changes and increasing level of activity. Offered referral to weight management however patient declined. He also reports significant stressors that have been leading to increased depression and weight gain. He denies SI. Recommended seeking a therapist and offered referral however patient declined. He also noted increased dyspnea with new onset intermittent exertional chest discomfort, will send for cardiology referral, although likely related to poorly controlled asthma. Signs and symptoms that warrant emergent care reviewed. All questions were answered and patient is in agreement of plan. Will follow up in 4-6 weeks or sooner if needed. Orders: Referrals Cardiology Referral R06.00 - Dyspnea, unspecified Medications: New cefpodoxime must administer with a meal/food 200 mg PO BID 20 tabs 0RF prednisone see taper instructions; 40 mg Daily x3 days, 30 mg daily x3 days, 20 mg daily x3 days, 10 mg daily x3 days 10 mg PO DIRECTED 30 tabs 0RF Discontinued amoxicillin-pot clavulanate 875-125 mg Discontinued Reason: Patient Completed Course 1 tab PO Q12H 20 tabs 0RF Coding Level of Care Code Est Pt Level 4 (35206) Complex EM visit Add On G2211 Diagnoses Asthma, severe J45.909 ANGEL (obstructive sleep apnea) G47.33 Morbid obesity E66.01 Personal history of tobacco use Z87.891 Multiple pulmonary nodules R91.8 Environmental allergies Z91.09 Bronchiectasis J47.9
[2024-08-03 15:53] VITALS: BP 132/70; PULSE 82; O2SAT 94; BMI 44.6
== END 2024-08-03 16:24 | disposition home or self-care (01) ==
PROVIDERS: PCP Physician Assistant Medical; Visit Provider Nurse Practitioner Family
DX: J45.909 Unspecified asthma, uncomplicated (principal); G47.33 Obstructive sleep apnea (adult) (pediatric); E66.01 Morbid (severe) obesity due to excess calories; Z87.891 Personal history of nicotine dependence; R91.8 Other nonspecific abnormal finding of lung field; Z91.09 Other allergy status, other than to drugs and biological substances; J47.9 Bronchiectasis, uncomplicated
CPT/HCPCS: 99214; G2211

== ENCOUNTER → 2024-08-03 15:50 | Outpatient (BNVA) | payer OTHER, SELFPAY | PROVIDERS: PCP Physician Assistant Medical; Visit Provider Nurse Practitioner Family | DX: J45.909 Unspecified asthma, uncomplicated (principal); J47.9 Bronchiectasis, uncomplicated; G47.33 Obstructive sleep apnea (adult) (pediatric); E66.01 Morbid (severe) obesity due to excess calories; R91.8 Other nonspecific abnormal finding of lung field; Z87.891 Personal history of nicotine dependence; Z91.09 Other allergy status, other than to drugs and biological substances; Z99.89 Dependence on other enabling machines and devices | CPT/HCPCS: 99212 ==

== ENCOUNTER 2024-09-03 16:01 | Outpatient (AMB) | payer OTHER, SELFPAY ==
--- NOTE | 2024-09-03 16:02 | A.OFFVIS_ITS ---
Vital Signs 09/03/24 16:03 Height 6 ft 1 in Weight 332 lb 8 oz BMI 43.9 BP 120/72 Blood Pressure Location Rt brachial Position Sitting Pulse 81 Pulse Source Pulse Oximeter Pulse Oximetry (%) 94 Oxygen Delivery Method Room Air Intake Visit Reasons: dyspnea Allergies No Known Allergies [NO KNOWN ALLERGIES] Allergy (Unknown, Verified 09/03/24 16:07) UNKNOWN HPI HPI dyspnea: Details: Aquilino is a pleasant 53 year old male, current smoker with 20 pack year history, recently quit 6 weeks ago with underlying severe asthma h/o intubation, DMII and ANGEL on CPAP through [facility] of [facility]. He has failed Advair, Breo and Incruse due to suboptimal response. He was moderately controlled on Trelegy and albuterol MDI, and started on Dupixent with notable improvements however has required prednisone since initiating. Today he presents with ongoing chest tightness and dyspnea requiring DuoNeb t.i.d. He denies chest congestion or wheezing. He denies any visits to urgent care hospitalizations related to respiratory distress since last visit. [facility] Medical History (Updated 07/15/24 @ 17:07 by JARVIS Burgos) Routine physical examination Mild anemia Hepatic steatosis Type 2 diabetes mellitus Joint pain Diverticulosis Renal cyst Abdominal pain Constipation by delayed colonic transit Costovertebral angle tenderness Renal calculi Morbid obesity Moderate asthma Diabetes mellitus Gout Surgical History Hx of colonoscopy History of cholecystectomy Family History Father CVD (cardiovascular disease) Hypertension Diabetes Mother Diabetes Chronic mental illness Sister Down syndrome Sister Hypertension Hypothyroid Social History (Updated 09/03/24 @ 16:07 by Alexandrea Thorne [facility]) Household Members: Family Housing: Apartment Do you presently have visiting nurse or other home services: No Alcohol intake: former Comment: Hasnt drank in 5 years Patient Tobacco Use Status: Former Tobacco user Tobacco use type: Cigarette Cigarettes Per Day: 2 Years Smoked: 20 e-Cigarette/Vaping Use: Never Used Second Hand Smoke Exposure: No Substance Use Type: Marijuana service: No Current occupational status: unemployed Cognitive needs: No Hearing needs: No Vision needs: No Review of Systems Const Denies chills, Denies excessive sweating, Denies fever(s), Denies headache(s) and Denies night sweats Eyes Denies dry eyes, Denies irritation and Denies itchy eyes ENT Reports Normal hearing present, Denies headache(s), Denies nasal congestion, Denies nasal discharge, Denies post nasal drip and Denies sore throat Card Denies chest pain, Denies chest pain at rest, Denies chest pain with activity, Denies claudication, Denies leg edema, Reports dyspnea on exertion, Denies orthopnea and Denies paroxysmal nocturnal dyspnea Resp Denies chest congestion, Denies cough, Denies hemoptysis, Denies excessive phlegm production, Denies pain on inspiration, Denies pain with cough, Reports dyspnea on exertion, Denies stridor and Denies wheezing Musc Denies myalgias Neuro Reports Normal hearing present and Denies headache(s) Endo Denies excessive sweating Rafael/Lymph Denies lymphadenopathy Aller/Immun Denies itchy eyes, Denies seasonal rhinorrhea and Denies wheezing Physical Exam Vital Signs: Last Vital Signs Pulse 81 09/03/24 16:03 BP 120/72 09/03/24 16:03 Pulse Ox 94 09/03/24 16:03 Oxygen Delivery Method Room Air 09/03/24 16:03 BMI result Body Mass Index 43.9 Const General: cooperative, healthy appearing, comfortable, no acute distress, well developed and alert Nutritional Appearance: obese Orientation/consciousness: patient oriented x3 Limitations: no limitations HEENT Head: Yes normal to inspection, Yes normocephalic and Yes atraumatic Ears: hearing grossly normal bilaterally and external ears normal Eyes General: appearance normal, both eyes and all related structures Eyelids: Yes eyelids normal Sclerae: sclerae normal EOM: EOMs intact bilaterally Neck Neck: Yes normal visual inspection and Yes no lymphadenopathy Lymphatic: no lymphadenopathy noted Chest Chest palpation & inspection: normal inspection of the chest Resp Effort & Inspection: normal respiratory effort, able to speak in complete sentences, no audible wheezes, no cough, no stridor, not tachypneic, no tripod positioning and no use of accessory muscles Auscultation: wheezes and diminished lung sounds Cardio Jugular venous distension: no JVD Rate: regular rate Rhythm: regular rhythm Skin Other: warm, dry General skin exam: no rashes or lesions noted Neuro General: patient oriented x3 Cranial nerves: Yes Normal hearing present Cognition (Neuro): normal cognition Gait exam (Neuro): Normal gait present Extrem General: Yes normal to inspection, Yes capillary refill normal, Yes no clubbing, cyanosis or edema and Yes no pedal edema Psych Appearance: grossly normal and well kempt Speech and movement: Normal speech and movement present and Clear speech present Affect: normal affect Attitude: cooperative Thought process: Normal thought process present Thought content: Normal thought content present Insight: Good insight present (Psych) Judgement: Good judgement present (Psych) Assessment & Plan Assessment & Plan (1) Asthma, severe: Code(s): J45.909 - Unspecified asthma, uncomplicated Category: Medical (2) ANGEL (obstructive sleep apnea): Code(s): G47.33 - Obstructive sleep apnea (adult) (pediatric) Category: Medical (3) Morbid obesity: Code(s): E66.01 - Morbid (severe) obesity due to excess calories Category: Medical (4) Personal history of tobacco use: Code(s): Z87.891 - Personal history of nicotine dependence Category: Social Hx (5) Multiple pulmonary nodules: Code(s): R91.8 - Other nonspecific abnormal finding of lung field Category: Medical (6) Environmental allergies: Code(s): Z91.09 - Other allergy status, other than to drugs and biological substances Category: Medical (7) Bronchiectasis: Code(s): J47.9 - Bronchiectasis, uncomplicated Category: Medical (8) Joint pain: Code(s): M25.50 - Pain in unspecified joint Category: Medical Plan Patient with scattered wheezing on exam will treat with prednisone. Again discussed switching Dupixent to it another biologic however he would like to hold off at this time as he feels his symptoms have been significantly improved since initiating. Patient reports ongoing joint pain and fatigue, will send for autoimmune workup. He is under the care of Sleep Medicine for ANGEL and has been reportedly compliant with CPAP therapy. At the last visit, a referral was placed to cardiology for intermittent exertional chest discomfort, awaiting appointment to be scheduled. Signs and symptoms that warrant emergent care reviewed. All questions were answered and patient is in agreement of plan. Will follow up in 4-6 weeks or sooner if needed. Orders: Orders Cyclic Citrullinated Peptide 09/04/24 M25.50 - Pain in unspecified joint Anti DNA DS Antibody 05/10/25 M25.50 - Pain in unspecified joint BILLY Reflex Titer and Pattern 09/04/24 M25.50 - Pain in unspecified joint Scleroderma 70 Antibody 09/04/24 M25.50 - Pain in unspecified joint Rheumatoid Factor 09/04/24 M25.50 - Pain in unspecified joint Sjogren's Antibodies 09/04/24 M25.50 - Pain in unspecified joint Medications: New prednisone see taper instructions; 40 mg Daily x3 days, 30 mg daily x3 days, 20 mg daily x3 days, 10 mg daily x3 days 10 mg PO DIRECTED 30 tabs 0RF Coding Level of Care Code Est Pt Level 4 (38930) Complex EM visit Add On G2211 Diagnoses Asthma, severe J45.909 ANGEL (obstructive sleep apnea) G47.33 Morbid obesity E66.01 Personal history of tobacco use Z87.891 Multiple pulmonary nodules R91.8 Environmental allergies Z91.09 Bronchiectasis J47.9 Joint pain M25.50
[2024-09-03 16:03] VITALS: BP 120/72; PULSE 81; O2SAT 94; BMI 43.9
== END 2024-09-03 16:26 | disposition home or self-care (01) ==
LOC: HO.HPSW 16:01
PROVIDERS: PCP Physician Assistant Medical; Visit Provider Nurse Practitioner Family
DX: J45.909 Unspecified asthma, uncomplicated (principal); G47.33 Obstructive sleep apnea (adult) (pediatric); E66.01 Morbid (severe) obesity due to excess calories; Z87.891 Personal history of nicotine dependence; R91.8 Other nonspecific abnormal finding of lung field; Z91.09 Other allergy status, other than to drugs and biological substances; J47.9 Bronchiectasis, uncomplicated; M25.50 Pain in unspecified joint
CPT/HCPCS: 99214; G2211

== ENCOUNTER → 2024-09-03 16:01 | Outpatient (BNVA) | payer OTHER, SELFPAY | PROVIDERS: PCP Physician Assistant Medical; Visit Provider Nurse Practitioner Family | DX: J45.909 Unspecified asthma, uncomplicated (principal); G47.33 Obstructive sleep apnea (adult) (pediatric); E66.01 Morbid (severe) obesity due to excess calories; R91.8 Other nonspecific abnormal finding of lung field; J47.9 Bronchiectasis, uncomplicated; M25.50 Pain in unspecified joint; Z91.09 Other allergy status, other than to drugs and biological substances; Z99.89 Dependence on other enabling machines and devices; Z87.891 Personal history of nicotine dependence; Z68.41 Body mass index [BMI] 40.0-44.9, adult | CPT/HCPCS: 99212 ==

== ENCOUNTER 2024-09-04 07:21 | Outpatient (REF) | payer OTHER, SELFPAY ==
[2024-09-04 09:39] LABS: Rheumatoid Factor 131.7 IU/mL (<15.0)
[2024-09-07 16:58] LABS: Cyclic Citrullinated Peptide <16 UNITS
[2024-09-08 13:39] LABS: Anti Nuclear Antibody Pattern Nuclear, Speckled; Anti Nuclear Antibody Screen POSITIVE (NEGATIVE)
[2024-09-08 21:08] LABS: Anti DNA DS Antibody 1 IU/mL; Antibody to SS-A Antigen <1.0 NEG AI (<1.0 NEG); Antibody to SS-B Antigen <1.0 NEG AI (<1.0 NEG); Scleroderma 70 Antibody <1.0 NEG AI (<1.0 NEG)
== END 2024-09-04 07:22 | disposition home or self-care (01) ==
LOC: HO.LAB 07:21
PROVIDERS: PCP Physician Assistant Medical; Visit Provider Nurse Practitioner Family
DX: M25.50 Pain in unspecified joint (principal)
CPT/HCPCS: 36415; 86038; 86039; 86200; 86225; 86235; 86431

== ENCOUNTER 2024-10-04 08:48 | Outpatient (REF) | payer OTHER, SELFPAY ==
[2024-10-04 09:54] LABS: MANUAL DIFF FLAG NO
[2024-10-04 09:57] LABS: Basophils Absolute Auto 0.1 X10*3/uL (0.0-0.2); Basophils Percent Auto 1.1 % (0-2); Eosinophils Absolute Auto 0.4 X10*3/uL (0.0-0.4); Eosinophils Percent Auto 4.5 % (0-4); Hematocrit 41.3 % (42.0-52.0); Hemoglobin 13.2 g/dl (14.0-18.0); Imm Gran Pct Auto 1.1 % (0.0-0.4); Lymphocytes Absolute Auto 1.6 X10*3/uL (1.2-4.9); Lymphocytes Percent Auto 18.2 % (20-40); Mean Corpuscular Hemoglobin 27.4 pg (27.0-33.0); Mean Corpuscular Volume 85.9 fL (80.0-98.0); Mean Platelet Volume 12.2 fL (9.4-12.4); Monocytes Absolute Auto 0.6 X10*3/uL (0.1-1.2); Neutrophils Absolute Auto 6.1 x10*3/uL (2.0-8.3); Neutrophils Percent Auto 68.1 % (45-73); Platelet Count 252 X10*3/uL (160-400); Red Blood Count 4.81 X10*6/uL (4.60-5.80); Red Cell Distribution Width 14.6 % (11.0-16.0); White Blood Count 8.9 X10*3/uL (4.8-10.8)
[2024-10-04 10:10] LABS: Estimated Average Glucose 163 mg/dL; Hemoglobin A1c % 7.3 % (<6.0); Total Hemoglobin (HGBA1C) 3420.8537 umol/L
[2024-10-04 10:15] LABS: Anion Gap 11 (12-20); Blood Urea Nitrogen 11 mg/dL (9-16); Calcium 9.2 mg/dL (8.4-10.2); Carbon Dioxide 28 mmol/L (22-29); Chloride 105 mmol/L (96-108); Cholesterol 131 mg/dL (<200); Estimated Glomerular Filt Rate > 60; Glucose Random 141 mg/dL (60-115); HDL Cholesterol 26 mg/dL (>40); Iron 50 mcg/dL (45-160); LDL Cholesterol Calculated 73 mg/dL (<100); Percent Iron Saturation 20 % (15-50); Sodium 140 mmol/L (135-145); Total Iron Binding Capacity 246 mcg/dL (228-428); Triglycerides 164 mg/dL (<150); Unsaturated Iron Binding 196 ug/dL
[2024-10-04 10:37] LABS: Vitamin B12 473 pg/mL (200-900)
== END 2024-10-04 08:49 | disposition home or self-care (01) ==
LOC: HO.10HDL 08:48
PROVIDERS: Visit Provider Physician Assistant Medical
DX: Z91.89 Other specified personal risk factors, not elsewhere classified (principal); E11.9 Type 2 diabetes mellitus without complications; D64.9 Anemia, unspecified; E78.5 Hyperlipidemia, unspecified
CPT/HCPCS: 36415; 80048; 80061; 82607; 83036; 83540; 85025

== ENCOUNTER 2024-10-13 16:01 | Outpatient (AMB) | payer OTHER, SELFPAY ==
[2024-10-13 16:03] VITALS: BP 120/66; PULSE 86; O2SAT 94; BMI 44.6
--- NOTE | 2024-10-13 16:03 | A.OFFVIS_ITS ---
Vital Signs 10/13/24 16:03 Height 6 ft 1 in Weight 338 lb 2 oz BMI 44.6 BP 120/66 Blood Pressure Location Lt brachial Position Sitting Pulse 86 Pulse Source Pulse Oximeter Pulse Oximetry (%) 94 Oxygen Delivery Method Room Air Intake Visit Reasons: dyspnea Allergies No Known Allergies (NO KNOWN ALLERGIES) Allergy (Unknown, Verified 10/13/24 16:11) UNKNOWN HPI HPI dyspnea: Details: Aquilino is a pleasant 53 year old male, former 20 pack year smoker, quit 6+ weeks ago with underlying severe asthma h/o intubation, DMII and ANGEL on CPAP through [facility]. He has failed Advair, Breo and Incruse due to suboptimal response. He continued to report poor control with Trelegy and a lbuterol MDI, and started on Dupixent with notable improvements however has required prednisone multiple times since initiating. Today he presents with ongoing wheezing and dyspnea requiring DuoNeb t.i.d. He denies any chest congestion, fevers or chills. He denies any visits to urgent care hospitalizations related to respiratory distress since last visit. [facility] Medical History (Updated 09/14/24 @ 08:40 by Katelyn Post NP) Routine physical examination Mild anemia Hepatic steatosis Type 2 diabetes mellitus Joint pain Diverticulosis Renal cyst Abdominal pain Constipation by delayed colonic transit Costovertebral angle tenderness Renal calculi Morbid obesity Moderate asthma Diabetes mellitus Gout Surgical History Hx of colonoscopy History of cholecystectomy Family History Father CVD (cardiovascular disease) Hypertension Diabetes Mother Diabetes Chronic mental illness Sister Down syndrome Sister Hypertension Hypothyroid Social History Household Members: Family Housing: Apartment Do you presently have visiting nurse or other home services: No Alcohol intake: former Comment: Hasnt drank in 5 years Patient Tobacco Use Status: Former Tobacco user Tobacco use type: Cigarette Cigarettes Per Day: 2 Years Smoked: 20 e-Cigarette/Vaping Use: Never Used Second Hand Smoke Exposure: No Substance Use Type: Marijuana service: No Current occupational status: unemployed Cognitive needs: No Hearing needs: No Vision needs: No Review of Systems Const Denies chills, Denies excessive sweating, Denies fever(s), Denies headache(s) and Denies night sweats Eyes Denies dry eyes, Denies irritation and Denies itchy eyes ENT Reports Normal hearing present, Denies headache(s), Denies nasal congestion, Denies nasal discharge, Denies post nasal drip and Denies sore throat Card Denies chest pain, Denies chest pain at rest, Denies chest pain with activity, Denies claudication, Denies leg edema, Reports dyspnea on exertion, Denies orthopnea and Denies paroxysmal nocturnal dyspnea Resp Denies chest congestion, Denies cough, Denies hemoptysis, Denies excessive phlegm production, Denies pain on inspiration, Denies pain with cough, Reports dyspnea on exertion and Denies stridor Musc Denies myalgias Neuro Reports Normal hearing present and Denies headache(s) Endo Denies excessive sweating Rafael/Lymph Denies lymphadenopathy Aller/Immun Denies itchy eyes and Denies seasonal rhinorrhea Physical Exam Vital Signs: Last Vital Signs Pulse 86 10/13/24 16:03 BP 120/66 10/13/24 16:03 Pulse Ox 94 10/13/24 16:03 Oxygen Delivery Method Room Air 10/13/24 16:03 BMI result Body Mass Index 44.6 Const General: cooperative, healthy appearing, comfortable, no acute distress, well developed and alert Nutritional Appearance: obese Orientation/consciousness: patient oriented x3 Limitations: no limitations HEENT Head: Yes normal to inspection, Yes normocephalic and Yes atraumatic Ears: hearing grossly normal bilaterally and external ears normal Eyes General: appearance normal, both eyes and all related structures Eyelids: Yes eyelids normal Sclerae: sclerae normal EOM: EOMs intact bilaterally Neck Neck: Yes normal visual inspection and Yes no lymphadenopathy Lymphatic: no lymphadenopathy noted Chest Chest palpation & inspection: normal inspection of the chest Resp Effort & Inspection: normal respiratory effort, able to speak in complete sentences, no audible wheezes, no cough, no stridor, not tachypneic, no tripod positioning and no use of accessory muscles Auscultation: wheezes and diminished lung sounds Cardio Jugular venous distension: no JVD Rate: regular rate Rhythm: regular rhythm Skin Other: warm, dry General skin exam: no rashes or lesions noted Neuro General: patient oriented x3 Cranial nerves: Yes Normal hearing present Cognition (Neuro): normal cognition Gait exam (Neuro): Normal gait present Extrem General: Yes normal to inspection, Yes capillary refill normal, Yes no clubbing, cyanosis or edema and Yes no pedal edema Psych Appearance: grossly normal and well kempt Speech and movement: Normal speech and movement present and Clear speech present Affect: normal affect Attitude: cooperative Thought process: Normal thought process present Thought content: Normal thought content present Insight: Good insight present (Psych) Judgement: Good judgement present (Psych) Assessment & Plan Assessment & Plan (1) Asthma, severe: Code(s): J45.909 - Unspecified asthma, uncomplicated Category: Medical (2) ANGEL (obstructive sleep apnea): Code(s): G47.33 - Obstructive sleep apnea (adult) (pediatric) Category: Medical (3) Morbid obesity: Code(s): E66.01 - Morbid (severe) obesity due to excess calories Category: Medical (4) Personal history of tobacco use: Code(s): Z87.891 - Personal history of nicotine dependence Category: Social Hx (5) Multiple pulmonary nodules: Code(s): R91.8 - Other nonspecific abnormal finding of lung field Category: Medical (6) Environmental allergies: Code(s): Z91.09 - Other allergy status, other than to drugs and biological substances Category: Medical (7) Bronchiectasis: Code(s): J47.9 - Bronchiectasis, uncomplicated Category: Medical (8) Joint pain: Code(s): M25.50 - Pain in unspecified joint Category: Medical Plan Patient with scattered wheezing on exam will treat with prednisone. Again discussed switching Dupixent to it another biologic previously he deferred as he felt his symptoms have been significantly improved since initiating. Will discontinue Dupixent and start patient on Fasenra. Patient reported ongoing joint pain and fatigue, recent rheumatoid factor and BILLY positive, referral placed to rheumatology.. He is under the care of Sleep Medicine for ANGEL and has been reportedly compliant with CPAP therapy. At the last visit, a referral was placed to cardiology for intermittent exertional chest discomfort, awaiting appointment to be scheduled. Signs and symptoms that warrant emergent care reviewed. All questions were answered and patient is in agreement of plan. Will follow up in 4-6 weeks or sooner if needed. Medications: Refilled Trelegy Ellipta 200-62.5-25 mcg (yjfdbhrcbio-nusprypqq-kotjnein) 1 inh inhalation DAILY 60 ea 6RF NS prednisone see taper instructions; 40 mg Daily x3 days, 30 mg daily x3 days, 20 mg daily x3 days, 10 mg daily x3 days 10 mg PO DIRECTED 30 tabs 0RF Coding Level of Care Code Est Pt Level 4 (66034) Diagnoses Asthma, severe J45.909 ANGEL (obstructive sleep apnea) G47.33 Morbid obesity E66.01 Personal history of tobacco use Z87.891 Multiple pulmonary nodules R91.8 Environmental allergies Z91.09 Bronchiectasis J47.9 Joint pain M25.50
== END 2024-10-13 16:40 | disposition home or self-care (01) ==
LOC: HO.HPSW 16:02
PROVIDERS: PCP Physician Assistant Medical; Visit Provider Nurse Practitioner Family
DX: J45.909 Unspecified asthma, uncomplicated (principal); G47.33 Obstructive sleep apnea (adult) (pediatric); E66.01 Morbid (severe) obesity due to excess calories; Z87.891 Personal history of nicotine dependence; R91.8 Other nonspecific abnormal finding of lung field; Z91.09 Other allergy status, other than to drugs and biological substances; J47.9 Bronchiectasis, uncomplicated; M25.50 Pain in unspecified joint
CPT/HCPCS: 99214

== ENCOUNTER → 2024-10-13 16:01 | Outpatient (BNVA) | payer OTHER, SELFPAY | PROVIDERS: PCP Physician Assistant Medical; Visit Provider Nurse Practitioner Family | DX: G47.33 Obstructive sleep apnea (adult) (pediatric) (principal); R06.00 Dyspnea, unspecified; J45.909 Unspecified asthma, uncomplicated; E66.01 Morbid (severe) obesity due to excess calories; Z87.891 Personal history of nicotine dependence; R91.8 Other nonspecific abnormal finding of lung field; Z91.09 Other allergy status, other than to drugs and biological substances; J47.9 Bronchiectasis, uncomplicated; M25.50 Pain in unspecified joint | CPT/HCPCS: 99212 ==

== ENCOUNTER 2025-01-03 11:26 | Outpatient (AMB) | payer OTHER, SELFPAY ==
--- NOTE | 2025-01-03 11:34 | MHC.PC.OV ---
Vital Signs 01/03/25 11:43 Height 6 ft 1 in Weight 323 lb BMI 42.6 BP 136/86 Blood Pressure Location Rt brachial Position Sitting Respiration 16 Pulse 102 H Pulse Source Pulse Oximeter Temp 97.4 F Temp Source Temporal Artery Scan Pulse Oximetry (%) 97 Oxygen Delivery Method Room Air Intake Visit Reasons: FU on Pain Medication Intake Note: Aquilino presents in the office today for a follow up to his pain medication. Patient is requesting rectal cream that was prescribed in the past. Allergies No Known Allergies (NO KNOWN ALLERGIES) Allergy (Unknown, Verified 01/03/25 11:37) UNKNOWN Medication List - Last Reconciled 01/04/25 by JARVIS Burgos albuterol sulfate 90 mcg/actuation (Ventolin HFA) 2 puffs inhalation Q6H PRN 30 days allopurinol 300 mg PO DAILY atorvastatin 10 mg PO BEDTIME benralizumab (Fasenra) 30 mg subcut Q8W bisacodyl (Dulcolax (bisacodyl)) 10 mg (2 x 5 mg) PO BEDTIME blood sugar diagnostic (FreeStyle Lite Strips) test daily blood-glucose meter (FreeStyle Lite Meter kit) test daily celecoxib (Celebrex) 100 mg PO BID PRN cholecalciferol (vitamin D3) 50 mcg PO DAILY diclofenac sodium 1% (Voltaren Arthritis Pain) apply 4 g to each affected area up to 4 times daily; maximum dose per joint: 16 g/day; maximum total body dose (all combined joints): 32 g/day glipizide ER 5 mg PO DAILY hydrocortisone 2.5% (Proctosol HC) 1 appl [place] BID-QID PRN ipratropium-albuterol 0.5 mg-3 mg(2.5 mg base)/3 mL 3 mL inhalation Q6-8H PRN lancets (FreeStyle Lancets) test daily Trelegy Ellipta 200-62.5-25 mcg (omlrgcllmdz-fnslvmaad-nbyyouti) 1 inh inhalation DAILY NS Tobacco use date assessed: 01/03/25 Dental Screening Dental Screen Date: 01/03/25 Did you have a dental visit in the last 12 months?: No Did you have a dental problem in the last 6 months where you did not have access to dental care?: No Was dental information given to patient?: Patient declined HPI HPI Comments History of Present Illness Details This is a 53-year-old male with a past medical history of obesity, dish, multiple pulmonary nodules, severe asthma, pancreatitis, hyperlipidemia, obstructive sleep apnea, gout and type 2 diabetes presenting for a med review. He endorses pain in his left upper arm/shoulder and bilateral knees. Pain is constant with varying degrees of worsening intensity. Taking Motrin 800 mg alleviate symptoms for most of the day. He has been using a family member's prescription. He had lab work August 2024 which demonstrated a very elevated rheumatoid factor level and positive BILLY screening. He was referred to Rheumatology, but the appointment is not scheduled until June of 2025. He has not had x-rays done yet. He denies trauma. He tried duloxetine which was ineffective. Denies joint swelling. Endorses fatigue. Pain is worse with activity. He tried Cymbalta however patient discontinued it after a week because it made him feel anxious. Severe asthma-followed by [facility] pulmonology. Reports he is doing better with the addition of Fasenra. Type 2 diabetes-hemoglobin A1c was 7.3%. Glipizide increase to 5 mg. He was on Farxiga which was discontinued due to side effects. Metformin caused diarrhea and exacerbated bleeding from hemorrhoids. GLP 1 not indicated due to history of pancreatitis. He does not check blood sugars. Obstructive sleep apnea-compliant with CPAP. Gout-on allopurinol. Hyperlipidemia-no side effects on atorvastatin. He saw GI yesterday, and a colonoscopy is being scheduled. Patient has mild anemia. History of constipation. He has been trying to lose weight by following a healthier diet, and this has been successful recently. ROS: Constitutional: No unexplained weight loss, fever, chills or night sweats. +fatigue. Eyes: No vision changes, blurry vision, double vision, eye pain Respiratory: No hemoptysis, shortness of breath or wheezing. Patient endorses cough related to asthma. Denies sputum production. Cardiovascular: No chest pain Gastrointestinal: No anorexia, nausea, vomiting or diarrhea. No abdominal pain or blood in stool. +constipation. Neurologic: No headache, dizziness, syncope, numbness or tingling in the extremities Musculoskeletal: See HPI. Hematologic/Lymphatics: No bleeding or bruising. No painful lymph nodes. Skin: No rash Endocrine: No cold or heat intolerance. No polyuria or polydipsia. Psychiatric: No depression or anxiety. No SI/HI. Physical exam: Constitutional: Alert, in no distress. Eyes: Pupils are equal, round and reactive to light. Extraocular muscles intact. Neck: Supple, Full range of motion. No lymphadenopathy. No palpable thyroid masses. Respiratory: Clear to auscultation. Cardiovascular: S1 S2 regular. No murmurs. Shoulders: Full range of motion. Positive left empty can maneuver. Negative Speed's test bilaterally. Left upper extremity is mildly tender to palpation. There is no crepitus. Shoulder strength 4/5 on the left and 5/5 on the right. Knees: No visible deformity or swelling. Full range of motion. Antalgic gait. Extremities: Warm and well perfused. No clubbing, cyanosis or edema. Symmetric peripheral pulses. Psychiatric: Normal mood and affect [facility] Medical History (Updated 01/04/25 @ 16:28 by JARVIS Burgos) Elevated rheumatoid factor Multiple joint pain Bilateral knee pain Left upper limb pain Neck pain Routine physical examination Mild anemia Hepatic steatosis Type 2 diabetes mellitus Joint pain Diverticulosis Renal cyst Abdominal pain Constipation by delayed colonic transit Costovertebral angle tenderness Renal calculi Morbid obesity Moderate asthma Diabetes mellitus Gout Surgical History Hx of colonoscopy History of cholecystectomy Family History Father CVD (cardiovascular disease) Hypertension Diabetes Mother Diabetes Chronic mental illness Sister Down syndrome Sister Hypertension Hypothyroid Social History (Updated 01/03/25 @ 11:42 by Alysha Hernandez MA) Household Members: Family Housing: Apartment Do you presently have visiting nurse or other home services: No Alcohol intake: former Comment: Hasnt drank in 5 years Patient Tobacco Use Status: Former Tobacco user Tobacco use type: Cigarette Cigarettes Per Day: 2 Years Smoked: 20 e-Cigarette/Vaping Use: Never Used Second Hand Smoke Exposure: No Substance Use Type: Marijuana service: No Current occupational status: unemployed Cognitive needs: No Hearing needs: No Vision needs: No Questionnaire PHQ-9 Over the last 2 weeks, how often have you been bothered by any of the following problems? 1. Little interest or pleasure in doing things: not at all 2. Feeling down, depressed, or hopeless: not at all 3. Trouble falling or staying asleep, or sleeping too much: not at all 4. Feeling tired or having little energy: not at all 5. Poor appetite or overeating: not at all 6. Feeling bad about yourself - or that you are a failure or have let yourself or your family down: not at all 7. Trouble concentrating on things, such as reading the newspaper or watching television: not at all 8. Moving or speaking so slowly that other people could have noticed. Or the opposite - being so fidgety or restless that you have been moving around a lot more than usual: not at all 9. Thoughts that you would be better off or of hurting yourself in some way: not at all Total score: 0 Depression Screening Interpretation: Negative Depression Screening Done: Yes 67120 - PHQ-9 Billing: Yes Source: Developed by Drs. Jovon López, Haily Nunez, Anthony Brown and colleagues, with an educational froilan from [employer]. Thrive Questionnaire Date Thrive assessed: 07/12/24 I am a: Patient What is your living situation today?: I have a steady place to live Within the past 12 months, did the food you bought not last and you didn't have the money to get more?: Never true Within the past 12 months, did you worry whether your food would run out before you got money to buy more?: Never true Do you have trouble paying for medicines?: No Do you have trouble getting transportation to medical appointments?: No Do you have trouble paying your heating and electricity bill?: No Do you have trouble taking care of your child, family member or friend?: No Do you have trouble with day-to-day activities such as bathing, preparing meals, shopping, managing finances, etc.?: No Are you currently unemployed and looking for a job?: I choose not to answer this question Are you interested in more education?: No Please select the resources that you would like help with: None Currently or been in a relationship where the following occur: No concerns reported THRIVE Score: 0 PARKER-7 AMB Questionnaire PARKER-7 Date PARKER - 7 assessed: 01/03/25 Feeling nervous, anxious, or on edge: 1 = Several days Not being able to stop or control worryin = Not at all Worrying too much about different things: 0 = Not at all Trouble relaxin = Not at all Being so restless that it is hard to sit still: 0 = Not at all Becoming easily annoyed or irritable: 1 = Several days Feeling afraid as if something awful might happen: 1 = Several days Total PARKER-7 score (0-4 normal; 5-9 mild; 10-14 moderate; 15-21 severe): 3 Source: Developed by Drs. Jovon López, Haily Nunez, Anthony Brown and colleagues, with an educational froilan from [employer]. PARKER-7 Assessment Billing PARKER-7 Assessment Tool: PARKER-7 Assessment 08112 Physical exam (Primary Care) Vital Signs: Last Vital Signs Temp 97.4 F 01/03/25 11:43 Pulse 102 H 01/03/25 11:43 Resp 16 01/03/25 11:43 BP 136/86 01/03/25 11:43 Pulse Ox 97 01/03/25 11:43 Oxygen Delivery Method Room Air 01/03/25 11:43 BMI result Body Mass Index 42.6 Tobacco/Smoking Status: Tobacco use Status Tobacco use date assessed 01/03/25 01/03/25 11:49 Patient Tobacco Use Status Former Tobacco user 01/03/25 11:42 Tobacco use type Cigarette 01/03/25 11:42 e-Cigarette/Vaping Use Never Used 01/03/25 11:42 PHQ-9: PHQ-9 Score PHQ-9: Total score 0 01/03/25 11:54 Depression Screening Interpretation: Negative Thrive Assessment: Date of Thrive Assessment Date Thrive assessed 07/12/24 01/03/25 11:34 Currently or been in a relationship where the following occur: No concerns reported Results Reviewed Results Reviewed: Laboratory Tests 09/25/18 01/31/24 07/14/24 09:35 07:20 08:15 WBC Hgb Hct Plt Count Creatinine Estimated GFR Iron TIBC % Saturation Unsat Iron Binding AST 31 ALT 37 Triglycerides Cholesterol LDL Cholesterol, Calc HDL Cholesterol Vitamin B12 Rheumatoid Factor BILLY Titer Lyme Disease Screen <0.90 Lyme Screen IgG & IgM <0.90 09/04/24 10/04/24 10/04/24 07:34 08:54 Unknown WBC 8.9 Hgb 13.2 L Hct 41.3 L Plt Count 252 Creatinine 0.88 Estimated GFR > 60 Iron 50 TIBC 246 % Saturation 20 Unsat Iron Binding 196 AST ALT Triglycerides 164 H Cholesterol 131 LDL Cholesterol, Calc 73 HDL Cholesterol 26 L Vitamin B12 473 Rheumatoid Factor 131.7 H BILLY Titer 1:320 H Lyme Disease Screen Lyme Screen IgG & IgM Coding Level of Care Code Est Pt Level 4 (01708) Complex EM visit Add On G2211 Diagnoses Type 2 diabetes mellitus without complication, without long-term current use of insulin E11.9 Diabetes mellitus intermediate frame tender insulin use: without assisted use Diabetes mellitus complication status: without complication Mild anemia D64.9 Severe persistent asthma without complication J45.50 Asthma persistence: persistent Asthma complication type: uncomplicated Pure hypercholesterolemia E78.00 Hyperlipidemia type: pure hypercholesterolemia Multiple joint pain M25.50 Elevated rheumatoid factor R76.8 Positive antinuclear antibody R76.8 Additional Codes PARKER-7 Assessment Billing - PARKER-7 Assessment Tool: PARKER-7 Assessment 54299 ([id number]) PHQ-9 - 56022 - PHQ-9 Billing: Yes ([id number]) Assessment & Plan Assessment & Plan (1) Type 2 diabetes mellitus: Code(s): E11.9 - Type 2 diabetes mellitus without complications Category: Medical Qualifiers: Diabetes mellitus intermediate frame tender insulin use: without assisted use Diabetes mellitus complication status: without complication Qualified Code(s): E11.9 - Type 2 diabetes mellitus without complications Plan: We reviewed complications of uncontrolled diabetes. Recommended annual eye exam. Continue glipizide extended release 5 mg daily. Check hemoglobin A1c. Patient will start checking fasting sugars with a target range of 70-130 in the morning. Unfortunately he is not a good candidate for a GLP 1 due to history of pancreatitis. Reinforce diabetic diet and lifestyle modifications. He declined referral to the dietitian and certified diabetes educator. (2) Mild anemia: Code(s): D64.9 - Anemia, unspecified Category: Medical Plan: Normal B12 and iron. This is mild. It could be related to chronic disease particularly if he has an underlying autoimmune disorder which is indicative of labs. He does need to proceed with colonoscopy. He saw Gastroenterology. We will reach out to facilitate scheduling. (3) Asthma, severe: Code(s): J45.909 - Unspecified asthma, uncomplicated Category: Medical Qualifiers: Asthma persistence: persistent Asthma complication type: uncomplicated Qualified Code(s): J45.50 - Severe persistent asthma, uncomplicated Plan: Continue management per pulmonology specialists. (4) Hyperlipidemia: Code(s): E78.5 - Hyperlipidemia, unspecified Category: Medical Qualifiers: Hyperlipidemia type: pure hypercholesterolemia Qualified Code(s): E78.00 - Pure hypercholesterolemia, unspecified Plan: Reviewed elevated triglycerides. Decrease carbs and sugar. Treat diabetes. Continue atorvastatin. (5) Multiple joint pain: Code(s): M25.50 - Pain in unspecified joint Category: Medical Plan: Patient has multiple joint pains with very elevated rheumatoid factor level and positive BILLY. This is concerning for underlying autoimmune disease. I will send a new referral to Rheumatology to see if they could see him sooner. Patient will try Celebrex 100 mg twice daily since [id number]-ach-fbznptw NSAIDs have been helpful. We reviewed potential side effects and cardiovascular risk. Take this as needed. Do not take with other NSAIDs. Reviewed risk of GI bleeding and nephrotoxicity. Monitor renal function. Check x-rays. (6) Elevated rheumatoid factor: Code(s): R76.8 - Other specified abnormal immunological findings in serum Category: Medical (7) Positive antinuclear antibody: Code(s): R76.8 - Other specified abnormal immunological findings in serum Category: Medical Plan Follow up in 1 month. Orders: Orders XR cervical spine 4V 01/03/25 M25.561 - Pain in right knee, M25.562 - Pain in left knee, M54.2 - Cervicalgia, M79.602 - Pain in left arm XR shoulder LT min 2V 01/03/25 M25.561 - Pain in right knee, M25.562 - Pain in left knee, M54.2 - Cervicalgia, M79.602 - Pain in left arm XR Knee [place] 3V 01/03/25 M25.561 - Pain in right knee, M25.562 - Pain in left knee Complete Blood Count Auto Diff 01/03/25 E11.9 - Type 2 diabetes mellitus without complications, K76.0 - Fatty (change of) liver, not elsewhere classified Comprehensive Met. Panel 01/03/25 E11.9 - Type 2 diabetes mellitus without complications, K76.0 - Fatty (change of) liver, not elsewhere classified Lyme by PCR for CSF 01/03/25 M25.50 - Pain in unspecified joint XR humerus LT 01/03/25 M25.561 - Pain in right knee, M25.562 - Pain in left knee, M54.2 - Cervicalgia, M79.602 - Pain in left arm Hemoglobin A1c 01/03/25 R73.9 - Hyperglycemia, unspecified Vitamin B12 01/03/25 E11.9 - Type 2 diabetes mellitus without complications, K76.0 - Fatty (change of) liver, not elsewhere classified, Z91.89 - Other specified personal risk factors, not elsewhere classified IRON PROFILE 01/03/25 D64.9 - Anemia, unspecified, E11.9 - Type 2 diabetes mellitus without complications, K76.0 - Fatty (change of) liver, not elsewhere classified Vitamin D 25-OH (D2 and D3) 01/03/25 M85.80 - Other specified disorders of bone density and structure, unspecified site Creatine Kinase Total Today M25.50 - Pain in unspecified joint Referrals Rheumatology Referral M25.50 - Pain in unspecified joint, R76.8 - Other specified abnormal immunological findings in serum Medications: New celecoxib (Celebrex) 100 mg PO BID PRN 60 caps 5RF pain hydrocortisone 2.5% (Proctosol HC) 1 appl [place] BID-QID PRN 30 grams 5RF hemorrhoids
[2025-01-03 11:43] VITALS: BP 136/86; PULSE 102; RESP 16; TEMP 36.3; O2SAT 97; BMI 42.6
--- OUTSIDE RECORDS SUMMARY | 2025-01-03 14:09 | XMS_ITS | Clinical Summary ---
Author Organization [facility] Address [address] [address] Phone Care Team Providers Care 911 Telecommunicator Name Role Phone Corbin Maharaj MD Primary Care Provider [phone] Allergies No known active allergies Medications allopurinol (ZYLOPRIM) 300 MG tablet Take 300 mg by mouth daily. 01/08/2022 Active ADVAIR HFA 45-21 mcg/actuation inhaler Inhale 2 puffs into the lungs 2 (two) times a day. 02/18/2022 Active glipiZIDE (GLUCOTROL XL) 2.5 MG 24 hr tablet Take 2.5 mg by mouth daily. Active albuterol 90 mcg/actuation inhaler Inhale 2 puffs into the lungs every 6 (six) hours as needed for wheezing. Active cholecalciferol (VITAMIN D3) 3,000 unit tablet Take 1,000 Units by mouth daily. Active Active Problems Problem Noted Date Diagnosed Date COVID-19 02/25/2022 Assessment & Plan (02/25/2022 1:40 PM EDT): Reports signed sick with COVID 3 weeks ago. He had been respiratory symptoms about 2 weeks ago. Asymptomatic now. Treatment not indicated Idiopathic acute pancreatitis without infection or necrosis 02/23/2022 Assessment & Plan (02/25/2022 1:40 PM EDT): Etiology not clear, second episode - RUQ u/s - no common bile duct seen (s/p cholecystectomy) - TG normal -GI Dr. Budhraja feels could possibly be due to dapagliflozin -No pain today at all even with deep palpation. Advance diet Type 2 diabetes mellitus, wi thout long-term current use of insulin 02/23/2022 Assessment & Plan (02/25/2022 1:39 PM EDT): DM dapagliflozin held, discontinued as could be cause of pancreatitis - cont basal bolus insulin -Asked patient to have his make a follow-up appoint with PCP to discuss diabetic medication. Patient does not want insulin. Does not need that at this point ANGEL on CPAP 02/23/2022 Assessment & Plan (02/23/2022 5:16 PM EDT): CPAP Resolved Problems Problem Noted Date Diagnosed Date Resolved Date Acute pancreatitis without i nfection or necrosis 02/23/2022 02/25/2022 Social History Tobacco Use Types Packs/Day Years Used Date Smoking Tobacco: Some Days Cigarettes Smokeless Tobacco: Never Tobacco Cessation:Ready to Q uit: Not Asked; Counseling Given: Not Answered Alcohol Use Standard Drinks/Week Comments Not Currently 0 (1 standard drink = 0.6 oz pur e alcohol) Education Answer Date Recorded Are you interested in more education? Not on lluvia e 08/24/2022 Are you concerned about learning? Not on file 08/24/2022 No 08/24/2022 No 08/24/2022 Digital Access Answer Date Recorded No 09/21/2022 No 09/21/2022 Reliable internet access at home? Not on file 09/21/2022 Device with a working camera? Not on file Sex and Gender Information Value Date Recorded Sex Assigned at Male 02/22/2022 9:05 PM EDT Legal Sex Male 9:03 PM EDT Gender Identity Male 02/22/2022 9:05 PM EDT Sexual Orientation Straight 02/22/2022 9: 05 PM EDT Last Filed Vital Signs Vital Sign Reading Time Taken Comments Blood Pressure 116/76 10/17/2022 12:56 PM EDT Pulse 75 10/17/2022 12:56 PM EDT Temperature 36.8 C (98.3 F) 10/17/2022 12:56 PM EDT Respiratory Rate 18 10/17/2022 12:56 PM EDT Oxygen Saturation 95% 10/17/2022 12:56 PM EDT Inhaled Oxygen Concentration - - Weight 154.2 kg (340 lb) 10/17/2022 12:56 PM EDT Height 185.4 cm (6' 1 ) 10/17/2022 12:56 PM EDT Body Mass Index 44.86 10/17/2022 12:56 PM EDT Plan of Treatment Health Maintenance Due Date Last Done Comments Adult Td,Tdap Booster 1972 BLOOD PRESSURE 1972 HEMOGLOBIN A1C 1972 DEPRESSION SCREENING 1984 SMOKING Hx and SMOKELESS TOBACCO SCREENING 1985 HEPATITIS C SCREENING 1990 HIV ONE-TIME SCREENING (18-65 YEARS) 1990 PNEUMOCOCCAL VACCINES (50+ years) (1 of 2 - PCV) 11/26/1991 COLOGUARD 2017 COLONOSCOPY 2017 COLORECTAL CANCER SCREENING 2017 FIT TEST 2017 FOBT 2017 SIGMOIDOSCOPY 2017 VIRTUAL COLONOSCOPY 2017 DIABETIC EYE EXAM 02/23/2022 URINE MICROALBUMIN/CREATININE RATIO 02/23/2022 ZOSTER VACCINES (1 of 2) 2022 LIPID PANEL 02/23/2023 02/23/2022 CREATININE LEVEL 10/18/2023 10/17/2022, , 02/24/2022, Additional history exists INFLUENZA VACCINE (#1) 2024 COVID-19 VACCINE ( season) 2024 HEPATITIS A VACCINES Aged Out No long er eligible based on patient's age to complete this topic HIB VACCINES Aged Out No longer eligi ble based on patient's age to complete this topic MENINGOCOCCAL VACCINES (ACWY) Aged Out No longer eligible based on patient's age to complete this topic MENINGOCOCCAL VACCINES (B) Aged Out N o longer eligible based on patient's age to complete this topic Medical Devices Not on file Procedures Procedure Name Priority Date/Time Associated Diagnosis Comments BASIC METABOLIC PANEL STAT 10/17/2022 1:53 PM EDT LIPID PANEL Routine 02/23/2022 6:38 AM EDT from Last 3 Months or Most Recently Relevant to Health Maintenance Results * (ABNORMAL) Basic metabolic panel (10/17/2022 1:53 PM EDT) SODIUM 143 133 - 146 mmol/L [facility] CHLORIDE 107 96 - 108 mmol/L [facility] POTASSIUM 4.2 3.3 - 5.1 mmol/L [facility] CO2 25 21 - 35 mmol/L [facility] BUN 13 6 - 19 mg/dL [facility] CREATININE 0.80 0.5 - 1.5 mg/dL [facility] GLUCOSE 109(H) 70 - 99 mg/dL [facility] CALCIUM 9.2 8.4 - 10.3 mg/dL [facility] EGFR 108 >59 mL/min/1.7 3m2 [facility] Comment:Estimated glomerular filtration rate calculated using the CKD-EPI refit equation. ANION GAP 15 10 - 20 mmol/L [facility] Blood 10/17/2022 1:53 PM EDT 10/17/2022 1:58 PM EDT us Kat Vinson MD LAB BLOOD ORDERABLES Final R esult [facility] [address] [place] [address] * Lipid panel (02/23/2022 6:38 AM EDT) HDL 37 mg/dL [facility] Comment: Interpretation <40 mg/dL: Low HDL cholesterol (major risk factor for CHD) Greater than or equal to 60 mg/dL: High HDL cholesterol ( negative risk factor for CHD) HDL - cholesterol is affected by a number of factors, e.g. smoking, excerise, hormones, sex and age. CHOLESTEROL 174 0 - 240 mg/dL [facility] TRIGLYCERIDES 144 30 - 160 mg/dL [facility] LDL 108 50 - 129 mg/dL [facility] Comment: LDL levels in terms of risk for coronary heart disease: <100 mg/dL: Optimal 100-129 mg/dL: Near or above optimal 130-159 mg/dL: Borderline high 160-189 mg/dL: High >190 mg/dL: Very High CARDIAC RISK RATIO 4.7 3.4 - 5.0 C [facility] Blood 02/23/2022 6:38 AM EDT 02/23/2022 6:52 AM EDT us Rita Heredia MD LAB BLOOD ORDERABLES Final Result Performing Organization Address City/State/[facility] Co de Phone Number [facility] [address] [place] [address] from Last 3 Months or Most Recently Relevant to Health Maintenance [place] [address] [place] [address] [facility] ACO ACO [employer] [place] [address] [place] [address] ACO Advance Directives For more information, please contact: [phone] (9AM - 5PM Jennifer/[facility], Friday-Friday) * Full Code (Latest Code Status on File) Date Activated Date Inactivated Comments 02/23/2022 4:02 AM Question Answer Comments Code Status Confirmed With: Patient Care Teams 911 Telecommunicator Relationship Specialty Start Date End Date Corbin Maharaj MD [address] [place] [address] [place] [address] PCP - General Internal Medicine 10/17/22 Additional Source Comments The information contained in this document represents components of the legal health record. It is not the complete legal health record.[facility]
--- OUTSIDE RECORDS SUMMARY | 2025-01-03 14:09 | XMS_ITS | Encounter Summary ---
Author Organization [facility] Address [address] [facility] [address] [place] [address] Phone Care Team Providers Care Fruit Distributor Name Role Phone Corbin Maharaj MD Primary Care Provider [phone] Encounter Details Date Type Department Care Team (Late st Contact Info) Description 02/22/2022 Procedure Pass [facility], Ct Scan - [address] [address] Social History Tobacco Use Types Packs/Day Years Used Date Smoking Tobacco: Never Smokeless Tobacco: Never Alcohol Use Standard Drinks/Week Comments Not Currently 0 (1 standard drink = 0.6 oz pur e alcohol) Sex and Gender Information Value Date Recorded Sex Assigned at Male 02/22/2022 9:05 PM EDT Legal Sex Male 9:03 PM EDT Gender Identity Male 02/22/2022 9:05 PM EDT Sexual Orientation Straight 02/22/2022 9: 05 PM EDT documented as of this encounter Functional Status * Calculated C-SSRS Risk Score (Lifetime/Recent) Answer Date of Assessment Author No Risk Indicated 02/22/2022 9:05 PM EDT Alysha Villalta, RN * [place] Suicide Severity Rating Scale (Screener/Recent Self-Report) Question Answer Date of Assessment Author 1. Wish to be (Past 1 Month) No 022 9:05 PM EDT Alysha Ramirez, RN 2. Non-Specific Active Suici pam Thoughts (Past 1 Month) No 02/22/2022 9:05 PM EDT Alysha Ramirez, RN 6. Suicidal Behavior (Lifetime) No 10/28/202 2 9:05 PM EDT Alysha Ramirez, RN documented as of this encounter Plan of Treatment Not on file documented as of this encounter Visit Diagnoses Not on filedocumented in this encounter Additional Health Concerns Infection Onset Date Last Indicated Resolved Time COVID-19 02/23/2022 02/23/2022 03/16/2022 1:22 AM EST documented as of this encounter Care Teams Fruit Distributor Relationship Specialty Start Date End Date Corbin Maharaj MD [address] [place] [address] [place] [address] PCP - General Internal Medicine 10/17/22 documented as of this encounter Additional Source Comments The information contained in this document represents components of the legal health record. It is not the complete legal health record.[facility]
== END 2025-01-03 12:20 | disposition home or self-care (01) ==
LOC: HO.HMCFM 11:27
PROVIDERS: PCP Physician Assistant Medical; Visit Provider Physician Assistant Medical
DX: E11.9 Type 2 diabetes mellitus without complications (principal); D64.9 Anemia, unspecified; J45.50 Severe persistent asthma, uncomplicated; E78.00 Pure hypercholesterolemia, unspecified; M25.50 Pain in unspecified joint; R76.8 Other specified abnormal immunological findings in serum

== ENCOUNTER → 2025-01-03 11:26 | Outpatient (BNVA) | payer OTHER, SELFPAY | PROVIDERS: Visit Provider Physician Assistant Medical | DX: E11.9 Type 2 diabetes mellitus without complications (principal); D64.9 Anemia, unspecified; J45.50 Severe persistent asthma, uncomplicated; E78.00 Pure hypercholesterolemia, unspecified; M25.50 Pain in unspecified joint; R76.8 Other specified abnormal immunological findings in serum; Z79.84 Long term (current) use of oral hypoglycemic drugs; Z79.899 Other long term (current) drug therapy; Z13.31 Encounter for screening for depression; Z13.39 Encounter for screening examination for other mental health and behavioral disorders | CPT/HCPCS: 96127; 99212 ==

== ENCOUNTER 2025-01-25 08:05 | Outpatient (REF) | payer OTHER, SELFPAY ==
--- NOTE | ~2025-01-25 | XR_ITS ---
EXAMINATION: XR CERVICAL SPINE CLINICAL INFORMATION: M54.2 - Cervicalgia COMPARISON: None available. TECHNIQUE: AP, lateral, obliques, swimmer's projection and atlantoodontoid views. FINDINGS: Patient's motion artifact. Limited the [id number] on the lateral projection. Craniocervical junction is intact. No acute cortical disruption or malalignment. Right neuroforamina and stenosis secondary to osteophyte formation at C3-4 and C5-6 levels and to a lesser extent on the left C3-4. No lytic or blastic lesions.. XR/XR cervical spine 4V IMPRESSION: Spondylosis C3-4 and C5-6. Limited exam. Electronically signed by: Miguel Plunkett MD 01/25/2025 09:19 AM EDT
--- NOTE | ~2025-01-25 | XR_ITS ---
EXAMINATION: XR SHOULDER, LEFT CLINICAL INFORMATION: M54.2 - Cervicalgia COMPARISON: Correlated to chest x-ray dated September 05, [address] chest dated April 05, 2024. TECHNIQUE: AP external rotation, Grashey, scapular Y, and axillary views of the left shoulder. FINDINGS: Poor collimation , axial projection. No acute cortical disruption or malalignment. No lytic or blastic lesions. No soft tissue calcification. No metallic or radiopaque foreign body. XR/XR shoulder LT min 2V IMPRESSION: Normal exam. Electronically signed by: Miguel Plunkett MD 01/25/2025 09:24 AM EDT
--- NOTE | ~2025-01-25 | XR_ITS ---
EXAMINATION: XR HUMERUS, LEFT CLINICAL INFORMATION: M54.2 - Cervicalgia COMPARISON: None available. TECHNIQUE: AP and lateral views of the left humerus. FINDINGS: No acute cortical disruption in the humerus. Well-corticated calcifications in the olecranon. No lytic or blastic lesions. No subcutaneous emphysema. No metallic or radiopaque foreign body. XR/XR humerus LT IMPRESSION: No acute fracture, left humerus. Probable enthesopathy versus calcific tendinosis/tendinopathy, triceps tendon. Electronically signed by: Miguel Plunkett MD 01/25/2025 09:22 AM EDT
--- NOTE | ~2025-01-25 | XR_ITS ---
XR KNEE GATITO 3V HISTORY: Bilateral knee pain. COMPARISON: No prior. TECHNIQUE: AP view bilateral knees standing, lateral and patellofemoral views bilateral knees. FINDINGS: RIGHT KNEE: No fracture, dislocation, or suspicious bone lesion. There is mild medial and lateral compartment joint space narrowing, and moderate patellofemoral compartment narrowing. No abnormal patellar tilt. There is both superior and inferior enthesopathy of the patella. Enthesopathic spurring of the tibial tubercle in keeping with probable old Black-Schlatter disease. No evidence of joint effusion. Soft tissues appear normal. LEFT KNEE: No fracture, dislocation, or suspicious bone lesion. There is mild medial and lateral compartment joint space narrowing, and moderate patellofemoral compartment narrowing. No abnormal patellar tilt. There is both superior and inferior enthesopathy of the patella. Enthesopathic spurring of the tibial tubercle in keeping with probable old Black-Schlatter disease. No evidence of joint effusion. Soft tissues appear normal. XR/XR Knee Gatito 3V IMPRESSION: 1. Bilateral tricompartmental osteoarthritis, most significant in the patellofemoral compartments. 2. No evidence of joint effusion of either knee. 3. Enthesopathic findings of the patellae and tibial tubercles. Electronically signed by: Petr Dill MD 01/25/2025 09:19 AM EDT
--- OUTSIDE RECORDS SUMMARY | 2025-01-25 08:23 | XMS_ITS | Encounter Summary ---
Author Organization [facility] Address [address] [employer] [facility] [address] [place] [address] Phone Care Team Providers Care Morals [employer] Police Officer Name Role Phone Corbin Maharaj MD Primary Care Provider [phone] Encounter Details Date Type Department Care Team (Late st Contact Info) Description 02/22/2022 Procedure Pass [facility], Ct Scan - [address] [address] Social History Tobacco Use Types Packs/Day Years [...] 9:05 PM EDT Alysha Villalta, RN * [place] Suicide Severity Rating Scale (Screener/Recent Self-Report) Question [...] documented as of this encounter Care Teams [employer] Officer Relationship Specialty Start Date End Date Corbin Maharaj MD [address] [place] [address] [place] [address] PCP - General Internal Medicine 10/17/22 documented as of this encounter Additional Source Comments The information contained in this document represents components of the legal health record. It is not the complete legal health record.[facility]
--- OUTSIDE RECORDS SUMMARY | 2025-01-25 08:23 | XMS_ITS | Clinical Summary ---
Author Organization [facility] Address [address] [address] Phone Care Team Providers Care Furnace Combination Analyst Name Role Phone Corbin Maharaj MD Primary Care Provider Allergies No known active allergies Medications allopurinol [...] EDT) SODIUM 143 133 - 146 mmol/L [facility] CHLORIDE 107 96 - 108 mmol/L [facility] POTASSIUM 4.2 3.3 - 5.1 mmol/L [facility] CO2 25 21 - 35 mmol/L [facility] BUN 13 6 - 19 mg/dL [facility] CREATININE 0.80 0.5 - 1.5 mg/dL [facility] GLUCOSE 109(H) 70 - 99 mg/dL [facility] CALCIUM 9.2 8.4 - 10.3 mg/dL [facility] EGFR 108 >59 mL/min/1.7 3m2 [facility] Comment:Estimated glomerular filtration rate calculated using the CKD-EPI refit equation. ANION GAP 15 10 - 20 mmol/L [facility] Blood 10/17/2022 1:53 PM EDT 10/17/2022 1:58 PM EDT us Kat Vinson MD LAB BLOOD ORDERABLES Final R esult [facility] [address] [place] [address] * Lipid panel (02/23/2022 6:38 AM EDT) HDL 37 mg/dL [facility] Comment: Interpretation <40 mg/dL: Low HDL cholesterol (major risk factor for CHD) Greater than or equal to 60 mg/dL: High HDL cholesterol ( negative risk factor for CHD) HDL - cholesterol is affected by a number of factors, e.g. smoking, excerise, hormones, sex and age. CHOLESTEROL 174 0 - 240 mg/dL [facility] TRIGLYCERIDES 144 30 - 160 mg/dL [facility] LDL 108 50 - 129 mg/dL [facility] Comment: LDL levels in terms of risk for coronary heart disease: <100 mg/dL: Optimal 100-129 mg/dL: Near or above optimal 130-159 mg/dL: Borderline high 160-189 mg/dL: High >190 mg/dL: Very High CARDIAC RISK RATIO 4.7 3.4 - 5.0 C [facility] Blood 02/23/2022 6:38 AM EDT 02/23/2022 6:52 AM EDT us Rita Heredia MD LAB BLOOD ORDERABLES Final Result Performing Organization Address City/State/[facility] Co de Phone Number [facility] [address] [place] [address] from Last 3 Months or Most Recently Relevant to Health Maintenance [place] [address] [place] [address] ACO [facility] ACO ACO [employer]CO [place] [place] [address] [place] [address] ACO Advance Directives For more information, please contact: [phone] (9AM - 5PM Jennifer/[facility]_[place], Friday-Friday) * Full Code (Latest Code Status on File) Date Activated Date Inactivated Comments 02/23/2022 4:02 AM Question Answer Comments Code Status Confirmed With: Patient Care Teams Furnace Combination Analyst Relationship Specialty Start Date End Date Corbin Maharaj MD [address] [place] [address] [place] [address] PCP - General Internal Medicine 10/17/22 Additional Source Comments The information contained in this document represents components of the legal health record. It is not the complete legal health record.[facility]
[2025-01-25 08:25] LABS: MANUAL DIFF FLAG NO
[2025-01-25 08:55] LABS: Hematocrit 37.1 % (42.0-52.0); Hemoglobin 12.1 g/dl (14.0-18.0); Imm Gran Abs Auto 0.15 X10*3/uL (0.00-0.03); Imm Gran Pct Auto 1.7 % (0.0-0.4); Lymphocytes Absolute Auto 1.2 X10*3/uL (1.2-4.9); Mean Corpuscular HGB Conc 32.6 g/dl (31.0-36.0); Mean Corpuscular Hemoglobin 27.5 pg (27.0-33.0); Mean Corpuscular Volume 84.3 fL (80.0-98.0); NRBC Abs Auto 0.000 X10*3/uL (0.0-0.012); NRBC Pct Auto 0.0 /100WBC (0.0-0.2); Platelet Count 237 X10*3/uL (160-400); Red Blood Count 4.40 X10*6/uL (4.60-5.80); White Blood Count 9.1 X10*3/uL (4.8-10.8)
[2025-01-25 09:18] LABS: Alanine Aminotransferase 27 U/L (0-40); Albumin Level 4.1 g/dL (3.5-5.0); Alkaline Phosphatase 112 U/L (39-117); Anion Gap 11 (12-20); Aspartate Amino Transferase 33 U/L (5-37); Blood Urea Nitrogen 12 mg/dL (9-16); Calcium 8.9 mg/dL (8.4-10.2); Carbon Dioxide 24 mmol/L (22-29); Chloride 107 mmol/L (96-108); Estimated Glomerular Filt Rate > 60; Iron 51 mcg/dL (45-160); Percent Iron Saturation 21 % (15-50); Potassium 4.0 mmol/L (3.3-5.1); Sodium 138 mmol/L (135-145); Total Iron Binding Capacity 246 mcg/dL (228-428); Total Protein 7.1 g/dL (6.5-8.0); Unsaturated Iron Binding 195 ug/dL
[2025-01-25 09:30] LABS: Total Hemoglobin (HGBA1C) 3082.3855 umol/L
[2025-01-25 09:43] LABS: Vitamin B12 334 pg/mL (200-900)
[2025-01-29 12:44] LABS: Vitamin D 25-OH, D2 <4 ng/mL; Vitamin D 25-OH, D3 31 ng/mL; Vitamin D 25-OH, Total 31 ng/mL (30-100)
== END 2025-01-25 08:06 | disposition home or self-care (01) ==
LOC: HO.XRAY 08:05
PROVIDERS: PCP Physician Assistant Medical; Visit Provider Physician Assistant Medical
DX: E11.9 Type 2 diabetes mellitus without complications (principal); K76.0 Fatty (change of) liver, not elsewhere classified; M85.812 Other specified disorders of bone density and structure, left shoulder; D64.9 Anemia, unspecified; M54.2 Cervicalgia; M79.602 Pain in left arm; M25.561 Pain in right knee; M25.562 Pain in left knee; Z91.89 Other specified personal risk factors, not elsewhere classified
CPT/HCPCS: 36415; 72050; 73030; 73060; 73562; 80053; 82306; 82550; 82607; 83036; 83540; 85025

== ENCOUNTER → 2025-01-25 08:26 | Outpatient (BNV) | payer OTHER, SELFPAY | PROVIDERS: PCP Physician Assistant Medical; Visit Provider Radiology Diagnostic Radiology | DX: M47.812 Spondylosis without myelopathy or radiculopathy, cervical region (principal); M17.0 Bilateral primary osteoarthritis of knee; M25.512 Pain in left shoulder; M61.422 Other calcification of muscle, left upper arm | CPT/HCPCS: 72050; 73030; 73060; 73562 ==

== ENCOUNTER 2025-03-04 15:53 | Outpatient (AMB) | payer OTHER, SELFPAY ==
[2025-03-04 15:56] VITALS: BP 118/66; PULSE 85; O2SAT 96; BMI 43.2
--- NOTE | 2025-03-04 15:56 | MHC.OFFVIS ---
Vital Signs 03/04/25 15:56 Height 6 ft 1 in Weight 327 lb 2 oz BMI 43.2 BP 118/66 Blood Pressure Location Lt brachial Position Sitting Pulse 85 Pulse Source Pulse Oximeter Pulse Oximetry (%) 96 Oxygen Delivery Method Room Air Intake Visit Reasons: Dyspnea Allergies No Known Allergies (NO KNOWN ALLERGIES) Allergy (Unknown, Verified 03/04/25 15:58) UNKNOWN HPI HPI Dyspnea: Details: Aquilino is a pleasant 54 year old male, former 20 pack year smoker, quit 4+ months ago with underlying severe asthma h/o intubation, DMII and ANGEL on CPAP through [facility]. He had failed Advair, Breo and Incruse due to suboptimal response. He continued to report poor control with Trelegy and albuterol MDI, and started on Dupixent with notable improvements however has required prednisone multiple times since initiating. Dupixent was then discontinued and he was started on Fasenra. He received first dose 11/08/24, now on q8 week dosing. He reports overall improvements with significant decrease in wheezing, dyspnea and cough. He reports resolution of chest tightness. He denies any visits to urgent care hospitalizations related to respiratory distress since last visit. [facility] Medical History (Updated 01/04/25 @ 16:28 by JARVIS Burgos) Elevated rheumatoid factor Multiple joint pain Bilateral knee pain Left upper limb pain Neck pain Routine physical examination Mild anemia Hepatic steatosis Type 2 diabetes mellitus Joint pain Diverticulosis Renal cyst Abdominal pain Constipation by delayed colonic transit Costovertebral angle tenderness Renal calculi Morbid obesity Moderate asthma Diabetes mellitus Gout Surgical History Hx of colonoscopy History of cholecystectomy Family History Father CVD (cardiovascular disease) Hypertension Diabetes Mother Diabetes Chronic mental illness Sister Down syndrome Sister Hypertension Hypothyroid Social History Household Members: Family Housing: Apartment Do you presently have visiting nurse or other home services: No Alcohol intake: former Comment: Hasnt drank in 5 years Patient Tobacco Use Status: Former Tobacco user Tobacco use type: Cigarette Cigarettes Per Day: 2 Years Smoked: 20 e-Cigarette/Vaping Use: Never Used Second Hand Smoke Exposure: No Substance Use Type: Marijuana service: No Current occupational status: unemployed Cognitive needs: No Hearing needs: No Vision needs: No Review of Systems Const Denies chills, Denies excessive sweating, Denies fever(s), Denies headache(s) and Denies night sweats Eyes Denies dry eyes, Denies irritation and Denies itchy eyes ENT Reports Normal hearing present, Denies headache(s), Denies nasal congestion, Denies nasal discharge, Denies post nasal drip and Denies sore throat Card Denies chest pain, Denies chest pain at rest, Denies chest pain with activity, Denies claudication, Denies leg edema, Reports dyspnea on exertion, Denies orthopnea and Denies paroxysmal nocturnal dyspnea Resp Denies chest congestion, Denies cough, Denies hemoptysis, Denies excessive phlegm production, Denies pain on inspiration, Denies pain with cough, Reports dyspnea on exertion and Denies stridor Musc Denies myalgias Neuro Reports Normal hearing present and Denies headache(s) Endo Denies excessive sweating Rafael/Lymph Denies lymphadenopathy Aller/Immun Denies itchy eyes and Denies seasonal rhinorrhea Physical Exam Vital Signs: Last Vital Signs Pulse 85 03/04/25 15:56 BP 118/66 03/04/25 15:56 Pulse Ox 96 03/04/25 15:56 Oxygen Delivery Method Room Air 03/04/25 15:56 BMI result Body Mass Index 43.2 Const General: cooperative, healthy appearing, comfortable, no acute distress, well developed and alert Nutritional Appearance: obese Orientation/consciousness: patient oriented x3 Limitations: no limitations HEENT Head: Yes normal to inspection, Yes normocephalic and Yes atraumatic Ears: hearing grossly normal bilaterally and external ears normal Eyes General: appearance normal, both eyes and all related structures Eyelids: Yes eyelids normal Sclerae: sclerae normal EOM: EOMs intact bilaterally Neck Neck: Yes normal visual inspection and Yes no lymphadenopathy Lymphatic: no lymphadenopathy noted Chest Chest palpation & inspection: normal inspection of the chest Resp Other: faint inspiratory wheezes Effort & Inspection: normal respiratory effort, able to speak in complete sentences, no audible wheezes, no cough, no stridor, not tachypneic, no tripod positioning and no use of accessory muscles Auscultation: diminished lung sounds Cardio Jugular venous distension: no JVD Rate: regular rate Rhythm: regular rhythm Skin Other: warm, dry General skin exam: no rashes or lesions noted Neuro General: patient oriented x3 Cranial nerves: Yes Normal hearing present Cognition (Neuro): normal cognition Gait exam (Neuro): Normal gait present Extrem General: Yes normal to inspection, Yes capillary refill normal, Yes no clubbing, cyanosis or edema and Yes no pedal edema Psych Appearance: grossly normal and well kempt Speech and movement: Normal speech and movement present and Clear speech present Affect: normal affect Attitude: cooperative Thought process: Normal thought process present Thought content: Normal thought content present Insight: Good insight present (Psych) Judgement: Good judgement present (Psych) Assessment & Plan Assessment & Plan (1) Asthma, severe: Code(s): J45.909 - Unspecified asthma, uncomplicated Category: Medical Qualifiers: Asthma complication type: uncomplicated Asthma persistence: persistent Qualified Code(s): J45.50 - Severe persistent asthma, uncomplicated (2) ANGEL (obstructive sleep apnea): Code(s): G47.33 - Obstructive sleep apnea (adult) (pediatric) Category: Medical (3) Morbid obesity: Code(s): E66.01 - Morbid (severe) obesity due to excess calories Category: Medical (4) Personal history of tobacco use: Code(s): Z87.891 - Personal history of nicotine dependence Category: Social Hx (5) Multiple pulmonary nodules: Code(s): R91.8 - Other nonspecific abnormal finding of lung field Category: Medical (6) Environmental allergies: Code(s): Z91.09 - Other allergy status, other than to drugs and biological substances Category: Medical (7) Bronchiectasis: Code(s): J47.9 - Bronchiectasis, uncomplicated Category: Medical Plan Patient with scattered wheezing on exam will send prednisone. Discussed restarting nebulized therapy and if continues with wheezing, then take prednisone as prescribed. Advised to continue Trelegy and Albuterol MDI PRN. Overall patient reports further improvement with Fasenra compared to Dupixent, will continue. May need to consider q6 weeks dosing. Although he quit smoking cigarettes, he continues to smoke marijuana and he is contemplating quitting as he feels this may be contributing to exacerbations. All questions were answered and patient is in agreement of plan. Will follow up in 3 months or sooner if needed. Medications: New prednisone 40 mg (2 x 20 mg) PO DAILY 10 tabs 0RF Coding Level of Care Code Est Pt Level 4 (43769) Diagnoses Severe persistent asthma without complication J45.50 Asthma complication type: uncomplicated Asthma persistence: persistent ANGEL (obstructive sleep apnea) G47.33 Morbid obesity E66.01 Personal history of tobacco use Z87.891 Multiple pulmonary nodules R91.8 Environmental allergies Z91.09 Bronchiectasis J47.9
--- OUTSIDE RECORDS SUMMARY | 2025-03-04 16:46 | XMS_ITS | Clinical Summary ---
Author Organization [facility] Address [address] [address] Phone Care Team Providers Care Photographer Apprentice Name Role Phone Corbin Maharaj MD Primary Care Provider [phone] Allergies No known active allergies Medications allopurinol [...] EYE EXAM 02/23/2022 URINE MICROALBUMIN/CREATININE RATIO 02/23/2022 RSV VACCINE (1 - Risk 50-74 years 1-dose series) 2022 ZOSTER VACCINES (1 of 2) 2022 LIPID PANEL 02/23/2023 02/23/2022 CREATININE LEVEL 10/18/2023 10/17/2022, , 02/24/2022, Additional history exists INFLUENZA VACCINE (#1) 2024 COVID-19 VACCINE ( - season) 2024 HEPATITIS A VACCINES Aged Out [...] Date/Time Associated Diagnosis Comments BASIC METABOLIC PANEL (BMP) STAT 10/17/2022 1:53 PM EDT LIPID PANEL Routine 02/23/2022 6:38 AM EDT from Last 3 Months or Most Recently Relevant to Health Maintenance Results * (ABNORMAL) Basic metabolic panel (10/17/2022 1:53 PM EDT) SODIUM 143 133 - 146 mmol/L [facility] CHLORIDE 107 96 - 108 mmol/L [facility] POTASSIUM 4.2 3.3 - 5.1 mmol/L [facility] CO2 25 21 - 35 mmol/L [facility] BUN 13 6 - 19 mg/dL [facility] CREATININE 0.80 0.5 - 1.5 mg/dL [facility] GLUCOSE 109(H) 70 - 99 mg/dL [facility] CALCIUM 9.2 8.4 - 10.3 mg/dL [facility] EGFR 108 >59 mL/min/1.7 3m2 [facility] Comment:Estimated glomerular filtration rate calculated using the CKD-EPI refit equation. ANION GAP 15 10 - 20 mmol/L [facility] Blood 10/17/2022 1:53 PM EDT 10/17/2022 1:58 PM EDT us Kat Vinson MD LAB BLOOD BKR ORDERABLES Fin al Result Performing Organization Address City/State/[facility] Co de Phone Number [facility] [address] [place] [address] * Lipid panel (02/23/2022 6:38 AM EDT) HDL 37 mg/dL [facility] Comment: Interpretation <40 mg/dL: Low HDL cholesterol (major risk factor for CHD) Greater than or equal to 60 mg/dL: High HDL cholesterol ( negative risk factor for CHD) HDL - cholesterol is affected by a number of factors, e.g. smoking, excerise, hormones, sex and age. CHOLESTEROL 174 0 - 240 mg/dL [facility] TRIGLYCERIDES 144 30 - 160 mg/dL [facility] LDL 108 50 - 129 mg/dL [facility] Comment: LDL levels in terms of risk for coronary heart disease: <100 mg/dL: Optimal 100-129 mg/dL: Near or above optimal 130-159 mg/dL: Borderline high 160-189 mg/dL: High >190 mg/dL: Very High CARDIAC RISK RATIO 4.7 3.4 - 5.0 [facility] Blood 02/23/2022 6:38 AM EDT 02/23/2022 6:52 AM EDT us Rita Heredia MD LAB BLOOD BKR ORDERABLES Fi nal Result [facility] [address] [place] [address] from Last 3 Months or Most Recently Relevant to Health Maintenance [place] [address] [place] [address] [place] [address] [place] [address] [place] [address] [place] [address] [place] [place] [address] [address] [place] [address] [employer] Advance Directives For more information, please contact: [phone] (9AM - 5PM Jennifer/[facility], Friday-Friday) * Full Code (Latest Code Status on File) Date Activated Date Inactivated Comments 02/23/2022 4:02 AM Question Answer Comments Code Status Confirmed With: Patient Care Teams Photographer Apprentice Relationship Specialty Start Date End Date Corbin Maharaj MD [address] [place] [address] [place] [address] PCP - General Internal Medicine 10/17/22 Additional Source Comments The information contained in this document represents components of the legal health record. It is not the complete legal health record.[facility]
--- OUTSIDE RECORDS SUMMARY | 2025-03-04 16:46 | XMS_ITS | Encounter Summary ---
Author Organization [facility] Address [address] [employer] [facility] [address] [place] [address] Phone Care Team Providers Care Center Medical Specialist Name Role Phone Corbin Maharaj MD Primary Care Provider [phone] Encounter Details Date Type Department Care Team (Late st Contact Info) Description 02/22/2022 Procedure [facility], Ct Scan - [address] [address] Social History Tobacco Use Types Packs/Day Years [...] 9:05 PM EDT Alysha Villalta, RN * [place] Suicide Severity Rating Scale (Screener/Recent Self-Report) Question [...] documented as of this encounter Care Teams Center Medical Specialist Relationship Specialty Start Date End Date Corbin Maharaj MD [address] [place] [address] [place] [address] PCP - General Internal Medicine 10/17/22 documented as of this encounter Additional Source Comments The information contained in this document represents components of the legal health record. It is not the complete legal health record.[facility]
== END 2025-03-04 16:27 | disposition home or self-care (01) ==
LOC: HO.HPSW 15:54
PROVIDERS: PCP Physician Assistant Medical; Visit Provider Nurse Practitioner Family
DX: J45.50 Severe persistent asthma, uncomplicated (principal); G47.33 Obstructive sleep apnea (adult) (pediatric); E66.01 Morbid (severe) obesity due to excess calories; Z87.891 Personal history of nicotine dependence; R91.8 Other nonspecific abnormal finding of lung field; Z91.09 Other allergy status, other than to drugs and biological substances; J47.9 Bronchiectasis, uncomplicated
CPT/HCPCS: 99214

== ENCOUNTER → 2025-03-04 15:53 | Outpatient (BNVA) | payer OTHER, SELFPAY | PROVIDERS: PCP Physician Assistant Medical; Visit Provider Nurse Practitioner Family | DX: J45.50 Severe persistent asthma, uncomplicated (principal); Z87.891 Personal history of nicotine dependence; Z79.899 Other long term (current) drug therapy | CPT/HCPCS: 99212 ==

== ENCOUNTER 2025-04-06 12:31 | Outpatient (AMB) | payer OTHER, SELFPAY ==
--- NOTE | 2025-04-06 12:51 | A.OFFVIS_ITS ---
Vital Signs 04/06/25 13:02 Height 6 ft 1 in Weight 329 lb 12.984 oz BMI 43.5 BP 140/90 H Blood Pressure Location Lt brachial Position Sitting Pulse 81 Pulse Source Pulse Oximeter Pulse Oximetry (%) 98 Oxygen Delivery Method Room Air Intake Visit Reasons: joint pain Intake Note: New patient presents today for joint pain. Patient c/o of joint pain all over. Patient stated his symptoms got worse in the past year. PCP prescribed patient Celebrex and patient stated it doesn't last long. Stone Driller Helper Required: No Information Interpreted: non-clinical & clinical Accompanied by: Self / Same As Patient Allergies No Known Allergies (NO KNOWN ALLERGIES) Allergy (Unknown, Verified 04/06/25 12:59) UNKNOWN HPI Comments Details: Patient is a 54 year old with DM, HLD, gout on allopurinol presenting for evaluation of chronic joint pain in the setting of elevated RF and positive BILLY - He reports experiencing joint pain for years, primarily affecting his arms, neck, and knees, describing it as a migratory pain that can affect different joints on different days, including switching sides of the body. - The affected joints can become swollen and red, and he describes the pain as feeling deep inside the bone. - Symptoms are exacerbated by fatigue and exhaustion, such as after a day of work. - When the pain occurs, particularly in the elbow, he experiences a loss of strength, making it difficult to push himself up out of bed. - He also notes that his feet and ankles swell frequently. - He has a history of gout, for which he takes allopurinol, and was diagnosed based on blood work and X-rays years ago. - For the past four to five months, he has been taking Celebrex, which he finds effective, although some days he feels it is not enough. - He also reports occasional rectal bleeding and a sensation of rectal swelling. - There is a family history of arthritis; his grandmother had a severe form of arthritis which he describes as one that eats your bone. [facility] Medical History (Updated 01/04/25 @ 16:28 by JARVIS Burgos) Elevated rheumatoid factor Multiple joint pain Bilateral knee pain Left upper limb pain Neck pain Routine physical examination Mild anemia Hepatic steatosis Type 2 diabetes mellitus Joint pain Diverticulosis Renal cyst Abdominal pain Constipation by delayed colonic transit Costovertebral angle tenderness Renal calculi Morbid obesity Moderate asthma Diabetes mellitus Gout Surgical History Hx of colonoscopy History of cholecystectomy Family History Father CVD (cardiovascular disease) Hypertension Diabetes Mother Diabetes Chronic mental illness Sister Down syndrome Sister Hypertension Hypothyroid Social History Household Members: Family Housing: Apartment Do you presently have visiting nurse or other home services: No Alcohol intake: former Comment: Hasnt drank in 5 years Patient Tobacco Use Status: Former Tobacco user Tobacco use type: Cigarette Cigarettes Per Day: 2 Years Smoked: 20 e-Cigarette/Vaping Use: Never Used Second Hand Smoke Exposure: No Substance Use Type: Marijuana service: No Current occupational status: unemployed Cognitive needs: No Hearing needs: No Vision needs: No Review of Systems Narrative Review of Systems - Musculoskeletal: Reports migratory pain in joints including elbows, knees, and neck for several years, associated with occasional swelling and redness. - Reports pain is worse with exhaustion. - Reports weakness associated with pain flares. - Denies significant pain in hands or wrists. - Lower Extremities: Reports his feet and ankles swell up all the time. - Constitutional: Reports fatigue triggering joint pain. - Gastrointestinal: Reports occasional rectal bleeding and a sensation of rectal swelling. All other systems reviewed and are unremarkable except noted above Physical Exam Exam Exam: Vital signs reviewed Physical Examination CONSTITUITIONAL Patient alert and cooperative. Well appearing and in no apparent painful distress MSK Hands * Right Hand: Able to make a fist. No swelling or tenderness to palpation of the MCPs, PIPs or DIPs. No deformities noted. * Left Hand: Able to make a fist. No swelling or tenderness to palpation of the MCPs, PIPs or DIPs. No deformities noted. Wrists * Right Wrist: Full ROM to flexion and extension. No swelling or TTP * Left Wrist: Full ROM to flexion and extension. No swelling or TTP Elbows * Right Elbow: Full ROM. No swelling or TTP. No TTP of the medial epicondyle. No TTP of the lateral epicondyle * Left Elbow: Full ROM. No swelling or TTP. No TTP of the medial epicondyle. No TTP of the lateral epicondyle Shoulders * Right shoulder: Full ROM. No swelling noted. No TTP of the AC joint. No TTP of the subacromial bursa. No TTP of the posterior shoulder * Left shoulder: Full ROM. No swelling noted. No TTP of the AC joint. No TTP of the subacromial bursa. No TTP of the posterior shoulder Knees * Right knee: Full ROM. No swelling noted. No TTP of the knee joint line. No TTP of pes anserine bursa * Left knee: Full ROM. No swelling noted. No TTP of the knee joint line. No TTP of pes anserine bursa. * Crepitations felt bilaterally Ankles * Right ankle: Good ankle dorsiflexion and plantar flexion. No swelling. No TTP of the ankle joint * Left ankle: Good ankle dorsiflexion and plantar flexion. No swelling. No TTP of the ankle joint Feet * Right foot: Negative squeeze test * Left foot: Negative squeeze test Tender points? * No tenderness to palpation of the bilateral trapezius, supraspinatus, anterior costochondral junctions, bilateral suboccipital muscle insertions SKIN No rashes Vital Signs: Last Vital Signs Pulse 81 04/06/25 13:02 BP 140/90 H 04/06/25 13:02 Pulse Ox 98 04/06/25 13:02 Oxygen Delivery Method Room Air 04/06/25 13:02 BMI result Body Mass Index 43.5 Results Reviewed Results Reviewed: Laboratory Tests 01/25/25 08:24 WBC 9.1 RBC 4.40 L Hgb 12.1 L Hct 37.1 L Plt Count 237 Sodium 138 Potassium 4.0 Chloride 107 Carbon Dioxide 24 BUN 12 Creatinine 0.74 AST 33 ALT 27 25-OH Vitamin D Total 31 Laboratory Tests 09/04/24 07:34 Rheumatoid Factor 131.7 H Cycl Citrul Peptide IgG <16 BILLY Screen POSITIVE A BILLY Titer 1:320 H BILLY Pattern Nuclear, Speckled A SS-A/Ro Antibody <1.0 NEG SS-B/La Antibody <1.0 NEG Scl-70 Scleroderma Ab <1.0 NEG Double Strand DNA Ab 1 XR Knee 12/2024 FINDINGS: RIGHT KNEE: No fracture, dislocation, or suspicious bone lesion. There is mild medial and lateral compartment joint space narrowing, and moderate patellofemoral compartment narrowing. No abnormal patellar tilt. There is both superior and inferior enthesopathy of the patella. Enthesopathic spurring of the tibial tubercle in keeping with probable old [place]-Schlatter disease. No evidence of joint effusion. Soft tissues appear normal. LEFT KNEE: No fracture, dislocation, or suspicious bone lesion. There is mild medial and lateral compartment joint space narrowing, and moderate patellofemoral compartment narrowing. No abnormal patellar tilt. There is both superior and inferior enthesopathy of the patella. Enthesopathic spurring of the tibial tubercle in keeping with probable old [place]-Schlatter disease. No evidence of joint effusion. Soft tissues appear normal. IMPRESSION: 1. Bilateral tricompartmental osteoarthritis, most significant in the patellofemoral compartments. 2. No evidence of joint effusion of either knee. 3. Enthesopathic findings of the patellae and tibial tubercles. XR C Spine 12/2024 FINDINGS: Patient's motion artifact. Limited the [id number] on the lateral projection. Craniocervical junction is intact. No acute cortical disruption or malalignment. Right neuroforamina and stenosis secondary to osteophyte formation at C3-4 and C5-6 levels and to a lesser extent on the left C3-4. No lytic or blastic lesions.. IMPRESSION: Spondylosis C3-4 and C5-6. Limited exam. Assessment & Plan Assessment & Plan (1) Polyarticular osteoarthritis: Code(s): M15.9 - Polyosteoarthritis, unspecified Plan: #Polyarticular OA The patient's migratory joint pain with swelling, particularly in the knees, is attributed to osteoarthritis, which is a degenerative, vgev-xla-ehid condition confirmed by prior X-rays. An inflammatory arthritis, such as rheumatoid arthritis or lupus, is considered less likely given the presentation. The condition is progressive and related to age and genetic predisposition. Management will focus on pain control. The patient will continue taking Celebrex, with a maximum daily dose of 400 mg, and is advised to take it with food. If knee pain worsens in the future, intra-articular steroid or gel injec tions can be considered. No routine follow-up is necessary at this time unless symptoms worsen significantly. Plan - Continue celebrex 100mg bid as per PCP - Return if prolonged AM stiffness to the hands or feet (2) DISH (diffuse idiopathic skeletal hyperostosis): Code(s): M48.10 - Ankylosing hyperostosis [[place]], site unspecified Category: Medical Plan: #DISH The patient's complaint of pain related to DISH is understood to be another manifestation of degenerative bone disease, similar in nature to his osteoarthritis. Current treatment options are limited to pain management. The patient is already on an appropriate regimen with Celebrex. Plan - Continue celebrex 100mg bid from PCP (3) Positive antinuclear antibody: Code(s): R76.8 - Other specified abnormal immunological findings in serum Category: Medical Plan: #Positive BILLY The presence of antinuclear antibodies (BILLY) is mainly associated with connective tissue diseases (CTD). ?However, their presence is found in healthy people especially in women and patients >65. ?In healthy individuals, the frequency of BILLY has been shown to be 31.7% of individuals at 1:40 serum dilution, 13.3% at 1:80, 5.0% at 1:160, and 3.3% at 1:320 (2). Some drugs and x enobiotics are also important for the development of BILLY (hydralazine, hydrochlorothiazide, minocycline, terbinafine, ciprofloxacin, furosemide, omeprazole). Moreover, the deficiency of vitamin D in the body of patients correlates with occurrence of these antibodies (1). At this time there is low suspicion for a connective tissue disease. ? 1. Vidhya?olya Izaguirre, Isabella Franks, Anastasia Granado. Antinuclear antibodies in healthy people and non-rheumatic diseases - diagnostic and clinical implications. Reumatologia. 2018;56(4):243-248. doi: 10.5114/reum.[id number]. Epub 2017Dec 26. PMID: 20907200; PMCID: [id number]. 2. Hebert EM, Lesly TE, Karla JS, Brittny B, Dalila R, Vibha MJ, José T, Yordy JA, Alfonso JR, Toshia RG, Shelly RN, Jean JS, Erwin NF, Neeta RJ, Verna Y, Leslie A, Jordan MR, Mamie MONCADA. Range of antinuclear antibodies in healthy individuals. Arthritis Rheum. 1996;40(9):1601-11. doi: 10.1002/art.[id number]. PMID: 7000142. (4) Elevated rheumatoid factor: Code(s): R76.8 - Other specified abnormal immunological findings in serum Category: Medical Plan: #Positive RF At this time there is no evidence of any underlying synovitis. ?Approximately 1- 5% of healthy individuals have positive rheumatoid factor tests. ?Factors that can cause elevated rheumatoid factor vitals include age and smoking. No concern for rheumatoid arthritis at this time Merced Fernandes, Steve R, Lore Zuleta. Rheumatoid factors: clinical applications. Dis Markers. 2013;35(6):727-34. doi: 10.1155/2012/335253. Epub 2012Mar 10. PMID: 68043507; PMCID: [id number]. Plan I spent 30 minutes reviewing the record and labs, taking a history, examining the patient, discussing the treatment plan, ordering diagnostic work up and documenting in the medical record Coding Level of Care Code New Pt Level 3 (12823) Add On Problem Visit Only Diagnoses Polyarticular osteoarthritis M15.9 DISH (diffuse idiopathic skeletal hyperostosis) M48.10 Positive antinuclear antibody R76.8 Elevated rheumatoid factor R76.8
[2025-04-06 13:02] VITALS: BP 140/90; PULSE 81; O2SAT 98; BMI 43.5
== END 2025-04-06 13:45 | disposition home or self-care (01) ==
LOC: HO.RHES 12:32
PROVIDERS: PCP Physician Assistant Medical; Visit Provider Student in an Organized Health Care Education/Training Program
DX: M15.9 Polyosteoarthritis, unspecified (principal); M48.10 Ankylosing hyperostosis [Forestier], site unspecified; R76.89 Other specified abnormal immunological findings in serum
CPT/HCPCS: 99203

== ENCOUNTER → 2025-04-06 12:31 | Outpatient (BNVA) | payer OTHER, SELFPAY | PROVIDERS: PCP Physician Assistant Medical; Visit Provider Student in an Organized Health Care Education/Training Program | DX: M15.9 Polyosteoarthritis, unspecified (principal); M48.10 Ankylosing hyperostosis [Forestier], site unspecified; R76.89 Other specified abnormal immunological findings in serum; Z79.1 Long term (current) use of non-steroidal anti-inflammatories (NSAID) | CPT/HCPCS: 99202 ==

== ENCOUNTER 2025-04-14 15:49 | Outpatient (AMB) | payer OTHER, SELFPAY ==
--- NOTE | 2025-04-14 15:42 | MHC.PC.OV ---
Intake Visit Reasons: follow up Intake Note: Aquilino presents for a telehealth follow upp to labs and imaging. Radio Personality Required: No Allergies No Known Allergies (NO KNOWN ALLERGIES) Allergy (Unknown, Verified 04/14/25 15:43) UNKNOWN Tobacco use date assessed: 04/14/25 Dental Screening Dental Screen Date: 04/14/25 Did you have a dental visit in the last 12 months?: No Did you have a dental problem in the last 6 months where you did not have access to dental care?: No Was dental information given to patient?: Patient declined HPI HPI Comments History of Present Illness Details This is a 54-year-old male with a past medical history of obesity, dish, multiple pulmonary nodules, severe asthma, pancreatitis, hyperlipidemia, obstructive sleep apnea, gout and type 2 diabetes presenting for a med review. Seen by rheumatology, no evidence of underlying autoimmune inflammatory condition. Recommended continuing Celebrex which helps with symptoms. Sometimes takes 3 tabs in a day and was advised this is okay. He endorses pain in his left upper arm/shoulder and bilateral knees. Pain is constant with varying degrees of worsening intensity. He tried duloxetine which was ineffective. Denies joint swelling. Endorses fatigue. Pain is worse with activity. Severe asthma-followed by [facility] [place]. Reports he is doing better with the addition of Fasenra. Type 2 diabetes-hemoglobin A1c was 7.3%. Glipizide increased to 5 mg. He was on Farxiga which was discontinued due to side effects. Metformin caused diarrhea and exacerbated bleeding from hemorrhoids. GLP 1 not indicated due to history of pancreatitis. He does not check blood sugars. Obstructive sleep apnea-compliant with CPAP. Gout-on allopurinol. Hyperlipidemia-no side effects on atorvastatin. Patient says left foot will swell at night for the past few months or longer. Resolves during day. No color changes or pain. Normal sensation. No CP or SOB. ROS: Constitutional: No unexplained weight loss, fever, chills or night sweats. +fatigue. Eyes: No vision changes, blurry vision, double vision, eye pain Respiratory: No hemoptysis, shortness of breath or wheezing. Patient endorses cough related to asthma. Denies sputum production. Cardiovascular: No chest pain Gastrointestinal: No anorexia, nausea, vomiting or diarrhea. No abdominal pain or blood in stool. +constipation. Neurologic: No headache, dizziness, syncope, numbness or tingling in the extremities Musculoskeletal: See HPI. Endocrine: No cold or heat intolerance. No polyuria or polydipsia PFSH Medical History (Updated 04/14/25 @ 16:20 by JARVIS Burgos) Swelling of left foot Elevated rheumatoid factor Multiple joint pain Bilateral knee pain Left upper limb pain Neck pain Routine physical examination Mild anemia Hepatic steatosis Type 2 diabetes mellitus Joint pain Diverticulosis Renal cyst Abdominal pain Constipation by delayed colonic transit Costovertebral angle tenderness Renal calculi Morbid obesity Moderate asthma Diabetes mellitus Gout Surgical History Hx of colonoscopy History of cholecystectomy Family History Father CVD (cardiovascular disease) Hypertension Diabetes Mother Diabetes Chronic mental illness Sister Down syndrome Sister Hypertension Hypothyroid Social History (Updated 04/14/25 @ 15:45 by Alysha Hernandez CMA) Household Members: Family Housing: Apartment Do you presently have visiting nurse or other home services: No Alcohol intake: former Comment: Hasnt drank in 5 years Patient Tobacco Use Status: Former Tobacco user Tobacco use type: Cigarette Cigarettes Per Day: 2 Years Smoked: 20 Packs per year/per ci.00 e-Cigarette/Vaping Use: Never Used Second Hand Smoke Exposure: No Substance Use Type: Marijuana service: No Current occupational status: unemployed Cognitive needs: No Hearing needs: No Vision needs: No Questionnaire Thrive Questionnaire Date Thrive assessed: 07/12/24 PARKER-7 AMB Questionnaire PARKER-7 Date PARKER - 7 assessed: 01/03/25 Source: Developed by Drs. Jovon López, Haily Nunez, Anthony Brown and colleagues, with an educational froilan from [employer]. Physical exam (Primary Care) Tobacco/Smoking Status: Tobacco use Status Tobacco use date assessed 04/14/25 04/14/25 15:46 Patient Tobacco Use Status Former Tobacco user 04/14/25 15:46 Tobacco use type Cigarette 04/14/25 15:46 e-Cigarette/Vaping Use Never Used 04/14/25 15:46 Thrive Assessment: Date of Thrive Assessment Date Thrive assessed 07/12/24 04/14/25 15:46 Telehealth Telehealth Telehealth Platform: Telephone Location of provider rendering services: practice address Location of patient: address on file Patient Identification confirmed using: Name, : Yes Telehealth method: voice only Patient verbally consented to treatment: Yes Patient verbally consented to billing insurance company: Yes Patient informed of any privacy concerns related to visit: Yes Minutes spent on Phone/Video with Pt.: 16 Coding Level of Care Code Tele Est Pt Level 4 (00113) Add On Problem Visit Only Diagnoses Type 2 diabetes mellitus without complication, without long-term current use of insulin E11.9 Diabetes mellitus complication status: without complication 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: without fpc use Severe persistent asthma without complication J45.50 Asthma complication type: uncomplicated Asthma persistence: persistent Pure hypercholesterolemia E78.00 Hyperlipidemia type: pure hypercholesterolemia Multiple joint pain M25.50 Swelling of left foot M79.89 Assessment & Plan Assessment & Plan (1) Type 2 diabetes mellitus: Code(s): E11.9 - Type 2 diabetes mellitus without complications Category: Medical Qualifiers: Diabetes mellitus complication status: without complication Diabetes mellitus fpc insulin use: without marine oil terminal superintendent use Qualified Code(s): E11.9 - Type 2 diabetes mellitus without complications Plan: We reviewed complications of uncontrolled diabetes. Recommended annual eye exam. Continue glipizide extended release 5 mg daily. Check hemoglobin A1c. Unfortunately he is not a good candidate for a GLP 1 due to history of pancreatitis. Reinforce diabetic diet and lifestyle modifications. He declined referral to the dietitian and ict educator. (2) Asthma, severe: Code(s): J45.909 - Unspecified asthma, uncomplicated Category: Medical Qualifiers: Asthma complication type: uncomplicated Asthma persistence: persistent Qualified Code(s): J45.50 - Severe persistent asthma, uncomplicated Plan: Continue management per pulmonology specialists. (3) Hyperlipidemia: Code(s): E78.5 - Hyperlipidemia, unspecified Category: Medical Qualifiers: Hyperlipidemia type: pure hypercholesterolemia Qualified Code(s): E78.00 - Pure hypercholesterolemia, unspecified Plan: Reviewed elevated triglycerides. Decrease carbs and sugar. Treat diabetes. Continue atorvastatin. (4) Multiple joint pain: Code(s): M25.50 - Pain in unspecified joint Category: Medical Plan: Appreciate rheumatology consult. Continue Celebrex 100 mg twice daily. We reviewed potential side effects and cardiovascular risk. Take this as needed. Do not take with other NSAIDs. Reviewed risk of GI bleeding and nephrotoxicity. Monitor renal function. (5) Swelling of left foot: Code(s): M79.89 - Other specified soft tissue disorders Category: Medical Plan: Patient says no pain, color changes and it comes and goes. will check d-dimer though DVT is unlikely based on the history. Advised pt to upload photo of this to the portal so I can determine what is needed for further evaluation. Plan Follow up in 3 months Orders: Orders D Dimer High Sensitivity 04/14/25 D64.9 - Anemia, unspecified, E11.9 - Type 2 diabetes mellitus without complications, E66.01 - Morbid (severe) obesity due to excess calories, M79.89 - Other specified soft tissue disorders Lyme IgG/IgM w/reflex to WB 04/14/25 D64.9 - Anemia, unspecified, E11.9 - Type 2 diabetes mellitus without complications, E66.01 - Morbid (severe) obesity due to excess calories, M79.89 - Other specified soft tissue disorders Hemoglobin A1c 04/14/25 D64.9 - Anemia, unspecified, E11.9 - Type 2 diabetes mellitus without complications, E66.01 - Morbid (severe) obesity due to excess calories, M79.89 - Other specified soft tissue disorders, R73.9 - Hyperglycemia, unspecified Comprehensive Met. Panel 04/14/25 D64.9 - Anemia, unspecified, E11.9 - Type 2 diabetes mellitus without complications, E66.01 - Morbid (severe) obesity due to excess calories, M79.89 - Other specified soft tissue disorders Vitamin D 25-OH (D2 and D3) 04/14/25 R79.89 - Other specified abnormal findings of blood chemistry TSH reflex Free T4 04/14/25 D64.9 - Anemia, unspecified, E11.9 - Type 2 diabetes mellitus without complications, E66.01 - Morbid (severe) obesity due to excess calories, M79.89 - Other specified soft tissue disorders Complete Blood Count no Diff 04/14/25 D64.9 - Anemia, unspecified, E11.9 - Type 2 diabetes mellitus without complications, E66.01 - Morbid (severe) obesity due to excess calories, M79.89 - Other specified soft tissue disorders Medications: Refilled lancets (FreeStyle Lancets) test daily 100 ea 5RF E11.9 - Type 2 diabetes mellitus without complications blood sugar diagnostic (FreeStyle Lite Strips) test daily 100 ea 5RF E11.9 - Type 2 diabetes mellitus without complications blood-glucose meter (FreeStyle Lite Meter kit) test daily 1 ea 0RF E11.9 - Type 2 diabetes mellitus without complications
--- OUTSIDE RECORDS SUMMARY | 2025-04-14 19:33 | XMS_ITS | Clinical Summary ---
Author Organization [facility] Address [address] [address] Phone Care Team Providers Care Product Marketing Intern Name Role Phone Corbin Maharaj MD Primary Care Provider [phone] Allergies No known active allergies Medications allopurinol [...] EDT) SODIUM 143 133 - 146 mmol/L [facility] CHLORIDE 107 96 - 108 mmol/L [facility] POTASSIUM 4.2 3.3 - 5.1 mmol/L [facility] CO2 25 21 - 35 mmol/L [facility] BUN 13 6 - 19 mg/dL [facility] CREATININE 0.80 0.5 - 1.5 mg/dL [facility] GLUCOSE 109(H) 70 - 99 mg/dL [facility] CALCIUM 9.2 8.4 - 10.3 mg/dL [facility] EGFR 108 >59 mL/min/1.7 3m2 [facility] Comment:Estimated glomerular filtration rate calculated using the CKD-EPI refit equation. ANION GAP 15 10 - 20 mmol/L [facility] Blood 10/17/2022 1:53 PM EDT 10/17/2022 1:58 PM EDT us Kat Vinson MD LAB BLOOD BKR ORDERABLES Fin al Result Performing Organization Address City/State/[facility] Co de Phone Number [facility] [address] [place] [address] * Lipid panel (02/23/2022 6:38 AM EDT) HDL 37 mg/dL [facility] Comment: Interpretation <40 mg/dL: Low HDL cholesterol (major risk factor for CHD) Greater than or equal to 60 mg/dL: High HDL cholesterol ( negative risk factor for CHD) HDL - cholesterol is affected by a number of factors, e.g. smoking, excerise, hormones, sex and age. CHOLESTEROL 174 0 - 240 mg/dL [facility] TRIGLYCERIDES 144 30 - 160 mg/dL [facility] LDL 108 50 - 129 mg/dL [facility] Comment: LDL levels in terms of risk for coronary heart disease: <100 mg/dL: Optimal 100-129 mg/dL: Near or above optimal 130-159 mg/dL: Borderline high 160-189 mg/dL: High >190 mg/dL: Very High CARDIAC RISK RATIO 4.7 3.4 - 5.0 [facility] Blood 02/23/2022 6:38 AM EDT 02/23/2022 6:52 AM EDT us Rita Heredia MD LAB BLOOD BKR ORDERABLES Fi nal Result [facility] [address] [place] [address] from Last 3 Months or Most Recently Relevant to Health Maintenance Insurance [place] [address] [place] [address] [place] [address] [place] [address] [place] [address] [place] [address] [place] [address] [place] [address] [employer] Advance Directives For more information, please contact: [phone] (9AM - 5PM Jennifer/[facility], Friday-Friday) * Full Code (Latest Code Status on File) Date Activated Date Inactivated Comments 02/23/2022 4:02 AM Question Answer Comments Code Status Confirmed With: Patient Care Teams Product Marketing Intern Relationship Specialty Start Date End Date Corbin Maharaj MD [address] [place] [address] [place] [address] PCP - General Internal Medicine 10/17/22 Additional Source Comments The information contained in this document represents components of the legal health record. It is not the complete legal health record.[facility]
--- OUTSIDE RECORDS SUMMARY | 2025-04-14 19:33 | XMS_ITS | Encounter Summary ---
Author Organization [facility] Address [email or web address] [facility] [address] [place] [id number] Phone Care Team Providers Care Social Media Marketing Analyst Name Role Phone Corbin Maharaj MD Primary Care Provider [phone] Encounter Details Date Type Department Care Team (Late st Contact Info) Description 02/22/2022 Procedure Pass [facility], Ct Scan - [address] [address] Social History Tobacco Use Types Packs/Day Years [...] 9:05 PM EDT Alysha Villalta, RN * [place] Suicide Severity Rating Scale (Screener/Recent Self-Report) Question [...] documented as of this encounter Care Teams Social Media Marketing Analyst Relationship Specialty Start Date End Date Corbin Maharaj MD [address] [place] [address] [place] [address] PCP - General Internal Medicine 10/17/22 documented as of this encounter Additional Source Comments The information contained in this document represents components of the legal health record. It is not the complete legal health record.[facility]
== END 2025-04-14 17:05 | disposition home or self-care (01) ==
LOC: HO.HMCFM 15:49
PROVIDERS: PCP Physician Assistant Medical; Visit Provider Physician Assistant Medical
DX: E11.9 Type 2 diabetes mellitus without complications (principal); J45.50 Severe persistent asthma, uncomplicated; E78.00 Pure hypercholesterolemia, unspecified; M25.50 Pain in unspecified joint; M79.89 Other specified soft tissue disorders